=== PATIENT | male | born 1965 | race Caucasian/White ===

== ENCOUNTER 2017-10-31 12:34 | Inpatient (IN) | payer OTHER ==
[2017-10-31 16:09] VITALS: BMI 36.5
[2017-10-31] MEDS ORDERED: MAG HYDROX/AL HYDROX/SIMETH 30 ML UNIT-DOSE CUP PO PRN (16:33)
[2017-10-31] MEDS ORDERED: IBUPROFEN 400 MG TABLET (FP) PO PRN (16:33)
[2017-10-31] MEDS ORDERED: hydrOXYzine PAMOATE 50 MG CAPSULE (FP) PO PRN (16:33)
[2017-10-31] MEDS ORDERED: MAGNESIUM CITRATE 300 ML BOTTLE PO PRN (16:33)
[2017-10-31] MEDS ORDERED: P-EPHED 60MG/TRIPROLIDI 2.5MG TABLET PO PRN (16:33)
[2017-10-31] MEDS ORDERED: LOPERAMIDE HCL 2 MG CAPSULE PO PRN (16:33)
[2017-10-31] MEDS ORDERED: chlordiazePOXIDE HCL 25 MG CAPSULE PO PRN (16:33)
[2017-10-31] MEDS ORDERED: MAGNESIUM HYDROX 2400MG/30ML ORAL SUSPENSION 30 ML CUP PO PRN (16:33)
[2017-10-31] MEDS ORDERED: MENTHOL/PHENOL 1 EACH UD MM PRN (16:33)
--- NOTE | 2017-10-31 16:33 | HP ---
CIWA Score - CIWA Score Nausea/Vomitin Muscle Tremors: 4-Moderate,w/Arms Extend Anxiety: 4-Mod. Anxious/Guarded Agitation: 4-Moderately Restless Paroxysmal Sweats: 3 Orientation: 0-Oriented Tacttile Disturbances: 0-None Auditory Disturbances: 0-None Visual Disturbances: 0-None Headache: 1-Very Mild CIWA-Ar Total Score: 18 Admission ROS BHS - HPI Chief Complaint: I am here for detox. Allergies/Adverse Reactions: Allergies Allergy/AdvReac Type Severity Reaction Status Date / Time fish derived Allergy Severe Swelling Verified 10/31/17 16:14 Penicillins Allergy Severe Swelling Verified 10/31/17 16:14 lactose Allergy Verified 10/31/17 16:15 History of Present Illness: pt is a 52yr old male with a history of alcohol dependence seeking detox for treatment. Exam Limitations: No Limitations - Ebola screening Have you traveled outside of the country in the last 21 days: No (N) Have you had contact with anyone from an Ebola affected area: No Have you been sick,other than usual withdrawal symptoms: No Do you have a fever: No - Review of Systems Constitutional: Chills, Diaphoresis, Night Sweats, Changes in sleep, Unintentional Wgt. Loss EENT: reports: No Symptoms Reported Respiratory: reports: Cough Cardiac: reports: Syncope GI: reports: Nausea, Poor Appetite, Poor Fluid Intake : reports: No Symptoms Reported Musculoskeletal: reports: No Symptoms Reported Integumentary: reports: Flushing, Sweating Neuro: reports: Headache, Tingling, Tremors Endocrine: reports: Excessive Sweating, Flushing, Intolerance to Cold, Intolerance to Heat Hematology: reports: No Symptoms Reported Psychiatric: reports: Judgement Intact, Mood/Affect Appropiate, Orientated x3, Agitated, Anxious Other Systems: Reviewed and Negative Patient History - Patient Medical History Hx Anemia: No Hx Asthma: Yes Hx Chronic Obstructive Pulmonary Disease (COPD): No Hx Cancer: No Hx Cardiac Disorders: No Hx Congestive Heart Failure: No Hx Hypertension: No Hx Hypercholesterolemia: No Hx Pacemaker: No HX Cerebrovascular Accident: No Hx Seizures: No Hx Dementia: No Hx Diabetes: No Hx Gastrointestinal Disorders: No Hx Liver Disease: No Hx Genitourinary Disorders: No Hx Sexually Transmitted Disorders: No Hx Renal Disease (ESRD): No Hx Thyroid Disease: No Hx Human Immunodeficiency Virus (HIV): No (NEGATIVE HX) Hx Hepatitis C: No (negative) Hx Depression: Yes Hx Suicide Attempt: No (denies) Hx Bipolar Disorder: No Hx Schizophrenia: No - Patient Surgical History Past Surgical History: Yes Hx Neurologic Surgery: No Hx Cataract Extraction: No Hx Cardiac Surgery: No Hx Lung Surgery: No Hx Breast Surgery: No Hx Breast Biopsy: No Hx Abdominal Surgery: No Hx Appendectomy: No Hx Cholecystectomy: No Hx Genitourinary Surgery: No Hx Section: No Hx Orthopedic Surgery: Yes (left ankle fracture 2012, screw removed.) Anesthesia Reaction: No - PPD History Previous Implant?: Yes Documented Results: Negative w/o proof Implanted On Prior R Admission?: Yes PPD to be Administered?: Yes - Reproductive History Patient is a Female of Child Bearing Age (11 -55 yrs old): No - Smoking Cessation Smoking history: Current every day smoker Have you smoked in the past 12 months: Yes Aproximately how many cigarettes per day: 40 If you are a former smoker, when did you quit?: 1 month ago Cigars Per Day: 0 Hx Chewing Tobacco Use: No Initiated information on smoking cessation: Yes 'Breaking Loose' booklet given: 10/31/17 - Substance & Tx. History Hx Alcohol Use: Yes Hx Substance Use: Yes Substance Use Type: Alcohol, Marijuana Hx Substance Use Treatment: Yes (last detox 2013 [facility]) - Substances Abused Alcohol Route: Oral Frequency: Daily Amount used: 3 pints vodka Age of first use: 17 Date of Last Use: 10/31/17 Marijuana/Hashish Route: Smoking Frequency: 1-3 times last 30 days Amount used: 2 puffs Age of first use: 52 Date of Last Use: 10/30/17 Family Disease History - Family Disease History Family Disease History: Diabetes: Grandparent, Other: Mother (HTN) Admission Physical Exam BHS - Vital Signs Vital Signs: Vital Signs - 24 hr 10/31/17 15:56 Temperature 96 F L Pulse Rate 94 H Respiratory 20 Rate Blood Pressure 135/80 - Physical General Appearance: Yes: Appropriately Dressed, Moderate Distress, Tremorous, Irritable, Sweating, Anxious HEENTM: Yes: Normal Voice Respiratory: Yes: Lungs Clear, Normal Breath Sounds, No Respiratory Distress Neck: Yes: No masses,lesions,Nodules Breast: Yes: Within Normal Limits Cardiology: Yes: Regular Rhythm, Regular Rate, S1, S2 Abdominal: Yes: Normal Bowel Sounds, Non Tender, Soft Genitourinary: Yes: Within Normal Limits Back: Yes: Normal Inspection Musculoskeletal: Yes: Gait Steady Extremities: Yes: Normal Capillary Refill, Normal Inspection, Non-Tender, Tremors Neurological: Yes: Fully Oriented, Alert, Normal Response Integumentary: Yes: Normal Color, Diaphoresis Lymphatic: Yes: Within Normal Limits - Diagnostic (1) Alcohol dependence with uncomplicated withdrawal Current Visit: Yes Status: Chronic (2) Asthma Current Visit: Yes Status: Chronic Qualifiers: Asthma severity: mild Asthma complication type: uncomplicated (3) Nicotine dependence Current Visit: Yes Status: Chronic Qualifiers: Nicotine product type: cigarettes Substance use status: uncomplicated Qualified Code(s): F17.210 - Nicotine dependence, cigarettes, uncomplicated Cleared for Admission [facility] - Detox or Rehab [facility] Level of Care: Medically Managed Detox Regimen/Protocol: Librium [facility] Breath Alcohol Content Breath Alcohol Content: 0.024 Urine Drug Screen - Results Drug Screen Negative: No Urine Drug Screen Results: THC-Marijuana, BZO-Benzodiazepines
[2017-10-31] MEDS ORDERED: ALBUTEROL SO4 18 GM HFA INHALER IH PRN (16:35)
[2017-10-31] MEDS ORDERED: chlordiazePOXIDE HCL 25 MG CAPSULE PO ONE (18:00)
[2017-10-31] MEDS: NICOTINE POLACRILEX 4 MG GUM BC PRN ×2 (18:16→22:18)
[2017-10-31] MEDS: THIAMINE HCL 100 MG TABLET (FP) PO SCH (22:16)
[2017-10-31] MEDS: chlordiazePOXIDE HCL 25 MG CAPSULE PO SCH (22:16)
[2017-11-01 00:02] LABS: URINE APPEARANCE TURBID; URINE BILIRUBIN NEGATIVE (NEGATIVE); URINE BLOOD NEGATIVE (NEGATIVE); URINE COLOR YELLOW; URINE GLUCOSE (UA) NEGATIVE (NEGATIVE); URINE KETONE NEGATIVE (NEGATIVE); URINE LEUK ESTERASE NEGATIVE (NEGATIVE); URINE NITRITE NEGATIVE (NEGATIVE); URINE PROTEIN NEGATIVE (NEGATIVE); URINE UROBILINOGEN 4.0 E.U/dl mg/dL (0.2-1.0)
[2017-11-01] MEDS: ACETAMINOPHEN 325 MG TABLET (FP) PO PRN ×2 (05:10→20:56)
[2017-11-01] MEDS: chlordiazePOXIDE HCL 25 MG CAPSULE PO SCH ×4 (05:10→22:11)
[2017-11-01] MEDS: NICOTINE POLACRILEX 4 MG GUM BC PRN ×4 (08:22→20:54)
[2017-11-01] MEDS: guaiFENesin/D-METHORPHAN HB 10 ML UNIT-DOSE CUPS PO PRN ×2 (10:08→17:12)
[2017-11-01] MEDS: NICOTINE 21 MG/24 HOURS TOPICAL PATCH TD SCH (10:08)
[2017-11-01] MEDS: PRENATAL VITAMINS W/ FOLIC ACID TABLET (FP) PO SCH (10:08)
[2017-11-01 10:20] LABS: HEMATOCRIT 40.7 % (35.4-49); HEMOGLOBIN 13.7 GM/dL (11.7-16.9); MCH 31.7 pg (25.7-33.7); MCHC 33.6 g/dl (32.0-35.9); MEAN CELL VOLUME 94.2 fl (80-96); MEAN PLT VOLUME 8.5 fl (7.5-11.1); PLATELET COUNT 243 K/MM3 (134-434); RBC 4.33 M/mm3 (4.00-5.60); RDW 14.2 % (11.9-15.9); WHITE BLOOD COUNT 7.3 K/mm3 (4.0-10.0)
[2017-11-01 10:34] LABS: ALBUMIN 3.1 g/dl (3.4-5.0); ANION GAP 6 (8-16); BLOOD UREA NITROGEN 18 mg/dL (7-18); CALCIUM 8.2 mg/dL (8.5-10.1); CHLORIDE 103 mmol/L (98-107); CO2 29 mmol/L (21-32); GLUCOSE,RANDOM 86 mg/dL (74-106); POTASSIUM 4.1 mmol/L (3.5-5.1); SODIUM 138 mmol/L (136-145)
[2017-11-01 10:38] LABS: ALK PHOS 74 U/L (45-117); BILIRUBIN,TOTAL 0.6 mg/dL (0.2-1.0); CREATININE 1.1 mg/dL (0.7-1.3); SGOT/AST 21 U/L (15-37); SGPT/ALT 33 U/L (12-78); TOT PROT 6.6 g/dl (6.4-8.2)
--- NOTE | 2017-11-01 10:45 | EKG ---
Test Reason : Blood Pressure : / mmHG Vent. Rate : 075 BPM Atrial Rate : 075 BPM P-R Int : 178 ms QRS Dur : 094 ms QT Int : 436 ms P-R-T Axes : 076 034 033 degrees QTc Int : 486 ms NORMAL SINUS RHYTHM PROLONGED QT ABNORMAL ECG WHEN COMPARED WITH ECG OF 31-OCT-2017 19:29, NO SIGNIFICANT CHANGE WAS FOUND Confirmed by JAY MARTIN MD ([id number]) on 11/01/2017 10:45:00 AM Referred By: Confirmed By:JAY MARTIN MD
--- NOTE | 2017-11-01 10:45 | EKG ---
Test Reason : Blood Pressure : / mmHG Vent. Rate : 094 BPM Atrial Rate : 094 BPM P-R Int : 160 ms QRS Dur : 098 ms QT Int : 410 ms P-R-T Axes : 066 028 042 degrees QTc Int : 512 ms NORMAL SINUS RHYTHM INCOMPLETE RIGHT BUNDLE BRANCH BLOCK PROLONGED QT ABNORMAL ECG NO PREVIOUS ECGS AVAILABLE Confirmed by JAY MARTIN MD ([id number]) on 11/01/2017 10:45:12 AM Referred By: Confirmed By:JAY MARTIN MD
--- NOTE | 2017-11-01 10:59 | PN ---
[facility] CIWA - CIWA Score Nausea/Vomitin-No Nausea/No Vomiting Muscle Tremors: 4-Moderate,w/Arms Extend Anxiety: 4-Mod. Anxious/Guarded Agitation: 4-Moderately Restless Paroxysmal Sweats: 1-Minimal Palms Moist Orientation: 0-Oriented Tacttile Disturbances: 3-Moderate Itch/Numb/Burn Auditory Disturbances: 0-None Visual Disturbances: 0-None Headache: 0-None Present CIWA-Ar Total Score: 16 BHS Progress Note (SOAP) Subjective: ANXIETY,SWEATS, INTERMITTENT SLEEP. Objective: 11/01/17 10:58 Vital Signs Temperature 96.5 F L 11/01/17 09:11 Pulse Rate 84 11/01/17 09:11 Respiratory Rate 18 11/01/17 09:11 Blood Pressure 120/81 11/01/17 09:11 O2 Sat by Pulse Oximetry (%) Laboratory Last Values WBC 7.3 K/mm3 (4.0-10.0) 11/01/17 07:00 RBC 4.33 M/mm3 (4.00-5.60) 11/01/17 07:00 Hgb 13.7 GM/dL (11.7-16.9) 11/01/17 07:00 Hct 40.7 % (35.4-49) 11/01/17 07:00 MCV 94.2 fl (80-96) 11/01/17 07:00 MCH 31.7 pg (25.7-33.7) 11/01/17 07:00 MCHC 33.6 g/dl (32.0-35.9) 11/01/17 07:00 RDW 14.2 % (11.9-15.9) 11/01/17 07:00 Plt Count 243 K/MM3 (134-434) 11/01/17 07:00 MPV 8.5 fl (7.5-11.1) 11/01/17 07:00 Sodium 138 mmol/L (136-145) 11/01/17 07:00 Potassium 4.1 mmol/L (3.5-5.1) 11/01/17 07:00 Chloride 103 mmol/L (98-107) 11/01/17 07:00 Carbon Dioxide 29 mmol/L (21-32) D 11/01/17 07:00 Anion Gap 6 (8-16) L 11/01/17 07:00 BUN 18 mg/dL (7-18) D 11/01/17 07:00 Creatinine 1.1 mg/dL (0.7-1.3) 11/01/17 07:00 Creat Clearance w eGFR > 60 (>60) 11/01/17 07:00 Random Glucose 86 mg/dL (74-106) 11/01/17 07:00 Calcium 8.2 mg/dL (8.5-10.1) L 11/01/17 07:00 Total Bilirubin 0.6 mg/dL (0.2-1.0) 11/01/17 07:00 AST 21 U/L (15-37) D 11/01/17 07:00 ALT 33 U/L (12-78) D 11/01/17 07:00 Alkaline Phosphatase 74 U/L (45-117) 11/01/17 07:00 Total Protein 6.6 g/dl (6.4-8.2) 11/01/17 07:00 Albumin 3.1 g/dl (3.4-5.0) L 11/01/17 07:00 Urine Color Yellow 10/31/17 19:46 Urine Appearance Turbid 10/31/17 19:46 Urine pH 6.0 (5.0-8.0) 10/31/17 19:46 Ur Specific [place] 1.031 (1.001-1.035) 10/31/17 19:46 Urine Protein Negative (NEGATIVE) 10/31/17 19:46 Urine Glucose (UA) Negative (NEGATIVE) 10/31/17 19:46 Urine Ketones Negative (NEGATIVE) 10/31/17 19:46 Urine Blood Negative (NEGATIVE) 10/31/17 19:46 Urine Nitrite Negative (NEGATIVE) 10/31/17 19:46 Urine Bilirubin Negative (NEGATIVE) 10/31/17 19:46 Urine Urobilinogen 4.0 e.u/dl mg/dL (0.2-1.0) 10/31/17 19:46 Ur Leukocyte Esterase Negative (NEGATIVE) 10/31/17 19:46 Assessment: 11/01/17 10:59 WITHDRAWAL SX Plan: CONTINUE DETOX
--- NOTE | 2017-11-01 11:58 | CONSULT ---
[facility] Psychiatric Consult - Data Date of interview: 11/01/17 Admission source: [facility] Identifying data: Pt is a 52 year old male, single, father of two, and currently unemployed. This is one of multiple admissions for patient. Pt. admitted to for Substance Abuse History: - Smoking Cessation. Smoking history: Current every day smoker. Have you smoked in the past 12 months: Yes. Aproximately how many cigarettes per day: 40. If you are a former smoker, when did you quit?: 1 month ago. Cigars Per Day: 0. Hx Chewing Tobacco Use: No. Initiated information on smoking cessation: Yes. 'Breaking Loose' booklet given: . - Substance & Tx. History. Hx Alcohol Use: Yes. Hx Substance Use: Yes. Substance Use Type: Alcohol, Marijuana. Hx Substance Use Treatment: Yes (last detox 2013 [facility]). - Substances Abused. Alcohol. Route: Oral. Frequency: Daily. Amount used: 3 pints vodka. Age of first use: 17. Date of Last Use: 10/31/17. Marijuana/Hashish. Route: Smoking. Frequency: 1-3 times last 30 days. Amount used: 2 puffs. Age of first use: 52. Date of Last Use: 10/30/17 Medical History: Asthma Psychiatric History: Pt. denies h/o psychiatric hospitalization, and suicide attempts. Reports h/o OPC but has not seen a psychiatrist in "several years." Pt. is currently not prescribed any psychotrophic medications and refuses to take psychiatric medications at this time. Pt. reports a diagnosis of MDD. Physical/Sexual Abuse/Trauma History: Denies. Mental Status Exam - Mental Status Exam Alert and Oriented to: Time, Place, Person Cognitive Function: Good Patient Appearance: Well Groomed Mood: Euthymic Affect: Mood Congruent Patient Behavior: Cooperative Speech Pattern: Appropriate Voice Loudness: Normal Thought Process: Goal Oriented Thought Disorder: Not Present Hallucinations: Denies Suicidal Ideation: Denies Homicidal Ideation: Denies Insight/Judgement: Poor Sleep: Fair Appetite: Fair Muscle strength/Tone: Normal Gait/Station: Normal Psychiatric Findings - Problem List ([place] 1, 2,3) (1) Alcohol dependence with uncomplicated withdrawal Current Visit: Yes Status: Acute (2) MDD (major depressive disorder) Current Visit: No Status: Suspected Comment: Self reports. (3) Nicotine dependence Current Visit: Yes Status: Acute Qualifiers: Nicotine product type: cigarettes Substance use status: in withdrawal Qualified Code(s): F17.213 - Nicotine dependence, cigarettes, with withdrawal (4) Cannabis dependence Current Visit: Yes Status: Acute - Initial Treatment Plan Initial Treatment Plan: Psychoeducation provided. Detoxification in progress. Observation.
[2017-11-01] MEDS: THIAMINE HCL 100 MG TABLET (FP) PO SCH (22:11)
[2017-11-02] MEDS: chlordiazePOXIDE HCL 25 MG CAPSULE PO SCH ×3 (05:09→17:18)
[2017-11-02] MEDS: guaiFENesin/D-METHORPHAN HB 10 ML UNIT-DOSE CUPS PO PRN ×3 (05:09→22:12)
[2017-11-02] MEDS: NICOTINE POLACRILEX 4 MG GUM BC PRN ×7 (05:10→22:14)
[2017-11-02] MEDS: PRENATAL VITAMINS W/ FOLIC ACID TABLET (FP) PO SCH (10:09)
[2017-11-02] MEDS: NICOTINE 21 MG/24 HOURS TOPICAL PATCH TD SCH (10:09)
--- NOTE | 2017-11-02 10:46 | PN ---
[facility] CIWA - CIWA Score Nausea/Vomitin-No Nausea/No Vomiting Muscle Tremors: 4-Moderate,w/Arms Extend Anxiety: 4-Mod. Anxious/Guarded Agitation: 4-Moderately Restless Paroxysmal Sweats: 1-Minimal Palms Moist Orientation: 0-Oriented Tacttile Disturbances: 3-Moderate Itch/Numb/Burn Auditory Disturbances: 0-None Visual Disturbances: 0-None Headache: 0-None Present CIWA-Ar Total Score: 16 BHS Progress Note (SOAP) Subjective: ANXIETY,SWEATS,TREMORS. Objective: 11/02/17 10:45 Vital Signs Temperature 96.8 F L 11/02/17 09:03 Pulse Rate 80 11/02/17 09:03 Respiratory Rate 18 11/02/17 09:03 Blood Pressure 118/73 11/02/17 09:03 O2 Sat by Pulse Oximetry (%) Laboratory Last Values WBC 7.3 K/mm3 (4.0-10.0) 11/01/17 07:00 RBC 4.33 M/mm3 (4.00-5.60) 11/01/17 07:00 Hgb 13.7 GM/dL (11.7-16.9) 11/01/17 07:00 Hct 40.7 % (35.4-49) 11/01/17 07:00 MCV 94.2 fl (80-96) 11/01/17 07:00 MCH 31.7 pg (25.7-33.7) 11/01/17 07:00 MCHC 33.6 g/dl (32.0-35.9) 11/01/17 07:00 RDW 14.2 % (11.9-15.9) 11/01/17 07:00 Plt Count 243 K/MM3 (134-434) 11/01/17 07:00 MPV 8.5 fl (7.5-11.1) 11/01/17 07:00 Sodium 138 mmol/L (136-145) 11/01/17 07:00 Potassium 4.1 mmol/L (3.5-5.1) 11/01/17 07:00 Chloride 103 mmol/L (98-107) 11/01/17 07:00 Carbon Dioxide 29 mmol/L (21-32) D 11/01/17 07:00 Anion Gap 6 (8-16) L 11/01/17 07:00 BUN 18 mg/dL (7-18) D 11/01/17 07:00 Creatinine 1.1 mg/dL (0.7-1.3) 11/01/17 07:00 Creat Clearance w eGFR > 60 (>60) 11/01/17 07:00 Random Glucose 86 mg/dL (74-106) 11/01/17 07:00 Calcium 8.2 mg/dL (8.5-10.1) L 11/01/17 07:00 Total Bilirubin 0.6 mg/dL (0.2-1.0) 11/01/17 07:00 AST 21 U/L (15-37) D 11/01/17 07:00 ALT 33 U/L (12-78) D 11/01/17 07:00 Alkaline Phosphatase 74 U/L (45-117) 11/01/17 07:00 Total Protein 6.6 g/dl (6.4-8.2) 11/01/17 07:00 Albumin 3.1 g/dl (3.4-5.0) L 11/01/17 07:00 Urine Color Yellow 10/31/17 19:46 Urine Appearance Turbid 10/31/17 19:46 Urine pH 6.0 (5.0-8.0) 10/31/17 19:46 Ur Specific [place] 1.031 (1.001-1.035) 10/31/17 19:46 Urine Protein Negative (NEGATIVE) 10/31/17 19:46 Urine Glucose (UA) Negative (NEGATIVE) 10/31/17 19:46 Urine Ketones Negative (NEGATIVE) 10/31/17 19:46 Urine Blood Negative (NEGATIVE) 10/31/17 19:46 Urine Nitrite Negative (NEGATIVE) 10/31/17 19:46 Urine Bilirubin Negative (NEGATIVE) 10/31/17 19:46 Urine Urobilinogen 4.0 e.u/dl mg/dL (0.2-1.0) 10/31/17 19:46 Ur Leukocyte Esterase Negative (NEGATIVE) 10/31/17 19:46 RPR Titer Nonreactive (NONREACTIVE) 11/01/17 07:00 HIV 1&2 Antibody Screen Negative 11/01/17 07:00 HIV P24 Antigen Negative 11/01/17 07:00 Assessment: 11/02/17 10:46 WITHDRAWAL SX Plan: CONTINUE DETOX
[2017-11-02] MEDS: ACETAMINOPHEN 325 MG TABLET (FP) PO PRN (15:43)
[2017-11-02] MEDS: chlordiazePOXIDE 5 MG CAPSULE PO SCH (22:11)
[2017-11-02] MEDS: THIAMINE HCL 100 MG TABLET (FP) PO SCH (22:11)
[2017-11-03] MEDS: chlordiazePOXIDE 5 MG CAPSULE PO SCH ×3 (05:42→17:25)
[2017-11-03] MEDS: NICOTINE POLACRILEX 4 MG GUM BC PRN ×6 (05:43→21:05)
[2017-11-03] MEDS: NICOTINE 21 MG/24 HOURS TOPICAL PATCH TD SCH (10:14)
[2017-11-03] MEDS: PRENATAL VITAMINS W/ FOLIC ACID TABLET (FP) PO SCH (10:14)
[2017-11-03] MEDS: guaiFENesin/D-METHORPHAN HB 10 ML UNIT-DOSE CUPS PO PRN (10:15)
--- NOTE | 2017-11-03 12:39 | PN ---
BHS Progress Note (SOAP) Subjective: DECREASED ANXIETY,SWEATS,TREMORS. Objective: 11/03/17 12:38 Vital Signs Temperature 95.7 F L 11/03/17 09:38 Pulse Rate 86 11/03/17 09:38 Respiratory Rate 18 11/03/17 09:38 Blood Pressure 129/82 11/03/17 09:38 O2 Sat by Pulse Oximetry (%) Laboratory Last Values WBC 7.3 K/mm3 (4.0-10.0) 11/01/17 07:00 RBC 4.33 M/mm3 (4.00-5.60) 11/01/17 07:00 Hgb 13.7 GM/dL (11.7-16.9) 11/01/17 07:00 Hct 40.7 % (35.4-49) 11/01/17 07:00 MCV 94.2 fl (80-96) 11/01/17 07:00 MCH 31.7 pg (25.7-33.7) 11/01/17 07:00 MCHC 33.6 g/dl (32.0-35.9) 11/01/17 07:00 RDW 14.2 % (11.9-15.9) 11/01/17 07:00 Plt Count 243 K/MM3 (134-434) 11/01/17 07:00 MPV 8.5 fl (7.5-11.1) 11/01/17 07:00 Sodium 138 mmol/L (136-145) 11/01/17 07:00 Potassium 4.1 mmol/L (3.5-5.1) 11/01/17 07:00 Chloride 103 mmol/L (98-107) 11/01/17 07:00 Carbon Dioxide 29 mmol/L (21-32) D 11/01/17 07:00 Anion Gap 6 (8-16) L 11/01/17 07:00 BUN 18 mg/dL (7-18) D 11/01/17 07:00 Creatinine 1.1 mg/dL (0.7-1.3) 11/01/17 07:00 Creat Clearance w eGFR > 60 (>60) 11/01/17 07:00 Random Glucose 86 mg/dL (74-106) 11/01/17 07:00 Calcium 8.2 mg/dL (8.5-10.1) L 11/01/17 07:00 Total Bilirubin 0.6 mg/dL (0.2-1.0) 11/01/17 07:00 AST 21 U/L (15-37) D 11/01/17 07:00 ALT 33 U/L (12-78) D 11/01/17 07:00 Alkaline Phosphatase 74 U/L (45-117) 11/01/17 07:00 Total Protein 6.6 g/dl (6.4-8.2) 11/01/17 07:00 Albumin 3.1 g/dl (3.4-5.0) L 11/01/17 07:00 Urine Color Yellow 10/31/17 19:46 Urine Appearance Turbid 10/31/17 19:46 Urine pH 6.0 (5.0-8.0) 10/31/17 19:46 Ur Specific [place] 1.031 (1.001-1.035) 10/31/17 19:46 Urine Protein Negative (NEGATIVE) 10/31/17 19:46 Urine Glucose (UA) Negative (NEGATIVE) 10/31/17 19:46 Urine Ketones Negative (NEGATIVE) 10/31/17 19:46 Urine Blood Negative (NEGATIVE) 10/31/17 19:46 Urine Nitrite Negative (NEGATIVE) 10/31/17 19:46 Urine Bilirubin Negative (NEGATIVE) 10/31/17 19:46 Urine Urobilinogen 4.0 e.u/dl mg/dL (0.2-1.0) 10/31/17 19:46 Ur Leukocyte Esterase Negative (NEGATIVE) 10/31/17 19:46 RPR Titer Nonreactive (NONREACTIVE) 11/01/17 07:00 HIV 1&2 Antibody Screen Negative 11/01/17 07:00 HIV P24 Antigen Negative 11/01/17 07:00 Assessment: 11/03/17 12:38 WITHDRAWAL SX Plan: CONTINUE DETOX
[2017-11-03] MEDS: ACETAMINOPHEN 325 MG TABLET (FP) PO PRN (17:28)
[2017-11-03] MEDS: THIAMINE HCL 100 MG TABLET (FP) PO SCH (22:43)
[2017-11-03] MEDS: chlordiazePOXIDE HCL 10 MG CAPSULE PO SCH (22:44)
[2017-11-04] MEDS: chlordiazePOXIDE HCL 10 MG CAPSULE PO SCH (05:41)
[2017-11-04] MEDS: ACETAMINOPHEN 325 MG TABLET (FP) PO PRN (05:43)
[2017-11-04] MEDS: NICOTINE POLACRILEX 4 MG GUM BC PRN (05:44)
[2017-11-04 06:07] VITALS: BP 143/91; PULSE 75; TEMP 96.6
--- NOTE | 2017-11-04 17:54 | DS ---
[facility] Detox Discharge Summary Admission Date: 10/31/17 Discharge Date: 11/04/17 - History Present History: Alcohol Dependence, Cannabis Dependence Additional Comments: PATIENT GOING TO [facility] OUTPATIENT [facility]GRAM FOR AFTERCARE. PATIENT WAS DISCHARGED FROM DETOX UNIT IN STABLE MEDICAL CONDITION. Pertinent Past History: Asthma, Depression, Nicotine Dependence. - Physical Exam Results Vital Signs: Vital Signs Temperature 96.6 F L 11/04/17 06:07 Pulse Rate 75 11/04/17 06:07 Respiratory Rate 18 11/04/17 06:07 Blood Pressure 143/91 11/04/17 06:07 O2 Sat by Pulse Oximetry (%) Pertinent Admission Physical Exam Findings: WITHDRAWAL SYMPTOMS. Laboratory Tests 10/31/17 11/01/17 11/01/17 19:46 07:00 07:00 WBC 7.3 RBC 4.33 Hgb 13.7 Hct 40.7 MCV 94.2 MCH 31.7 MCHC 33.6 RDW 14.2 Plt Count 243 MPV 8.5 Sodium Potassium Chloride Carbon Dioxide Anion Gap BUN Creatinine Creat Clearance w eGFR Random Glucose Calcium Total Bilirubin AST ALT Alkaline Phosphatase Total Protein Albumin Urine Color Yellow Urine Appearance Turbid Urine pH 6.0 Ur Specific [place] 1.031 Urine Protein Negative Urine Glucose (UA) Negative Urine Ketones Negative Urine Blood Negative Urine Nitrite Negative Urine Bilirubin Negative Urine Urobilinogen 4.0 e.u/dl Ur Leukocyte Esterase Negative RPR Titer HIV 1&2 Antibody Screen Negative HIV P24 Antigen Negative 11/01/17 11/01/17 07:00 07:00 WBC RBC Hgb Hct MCV MCH MCHC RDW Plt Count MPV Sodium 138 Potassium 4.1 Chloride 103 Carbon Dioxide 29 D Anion Gap 6 L BUN 18 D Creatinine 1.1 Creat Clearance w eGFR > 60 Random Glucose 86 Calcium 8.2 L Total Bilirubin 0.6 AST 21 D ALT 33 D Alkaline Phosphatase 74 Total Protein 6.6 Albumin 3.1 L Urine Color Urine Appearance Urine pH Ur Specific [place] Urine Protein Urine Glucose (UA) Urine Ketones Urine Blood Urine Nitrite Urine Bilirubin Urine Urobilinogen Ur Leukocyte Esterase RPR Titer Nonreactive HIV 1&2 Antibody Screen HIV P24 Antigen LABS NOTED. - Treatment Hospital Course: Detox Protocol Followed, Detoxed Safely, Responded well, Discharged Condition Good Patient has Accepted a Rehab Referral to: PT. GOING TO [facility] FOR AFTERCARE. - Medication Discharge Medications: Ambulatory Orders Albuterol Sulfate Inhaler - [Ventolin HFA Inhaler -] 2 inh PO Q4H PRN #1 canister 08/24/14 - Diagnosis (1) Alcohol dependence with uncomplicated withdrawal Status: Acute (2) Cannabis dependence Status: Acute (3) Nicotine dependence Status: Acute Qualifiers: Nicotine product type: cigarettes Substance use status: in withdrawal Qualified Code(s): F17.213 - Nicotine dependence, cigarettes, with withdrawal (4) Asthma Status: Chronic Qualifiers: Asthma severity: mild Asthma persistence: unspecified Asthma complication type: uncomplicated Qualified Code(s): J45.909 - Unspecified asthma, uncomplicated (5) Major depressive disorder, recurrent Status: Chronic Qualifiers: Major depression episode severity: unspecified Qualified Code(s): F33.9 - Major depressive disorder, recurrent, unspecified - AMA Did Patient Leave Against Medical Advice: No
== END 2017-11-04 08:55 | disposition home or self-care (01) | DRG 775 ==
LOC: YASAS 12:34 → Y3N 16:53
PROVIDERS: ADMIT Internal Medicine; ATTEND Internal Medicine
PROC: HZ2ZZZZ Detoxification Services for Substance Abuse Treatment (ICD-10-PCS; principal; 2017-10-31)
DX: F10.230 Alcohol dependence with withdrawal, uncomplicated (principal); F12.20 Cannabis dependence, uncomplicated; F17.213 Nicotine dependence, cigarettes, with withdrawal; F33.9 Major depressive disorder, recurrent, unspecified; J45.909 Unspecified asthma, uncomplicated; Z91.013 Allergy to seafood; Z88.0 Allergy status to penicillin; Z91.011 Allergy to milk products
CPT/HCPCS: 36415; 80053; 81003; 85027; 86593; 87389; 93005; 93010

== ENCOUNTER 2017-12-12 12:17 | Inpatient (IN) | payer OTHER ==
[2017-12-12 15:06] VITALS: BMI 33.0
--- NOTE | 2017-12-12 16:10 | HP ---
CIWA Score - CIWA Score Nausea/Vomitin Muscle Tremors: 2 Anxiety: 2 Agitation: 1-Slight > Activity Paroxysmal Sweats: 2 Orientation: 1-Uncertain about Date Tacttile Disturbances: 0-None Auditory Disturbances: 1-Very Mild Visual Disturbances: 1-Very Mild Sensitivity Headache: 2-Mild CIWA-Ar Total Score: 14 Admission ROS BHS - HPI Chief Complaint: WITHDRAWAL SYMPTOMS Allergies/Adverse Reactions: Allergies Allergy/AdvReac Type Severity Reaction Status Date / Time fish derived Allergy Severe Swelling Verified 10/31/17 16:14 Penicillins Allergy Severe Swelling Verified 10/31/17 16:14 lactose Allergy Verified 10/31/17 16:15 History of Present Illness: 52 Y.O. MAN WITH A HISTORY OF ALCOHOL DEPENDENCE IS HERE SEEKING DETOX. HE HAS HAD MULTIPLE ADMISSIONS HERE WITH HIS LAST ADMISSION BEING IN 10/2017. LONGEST PERIOD SOBER HAS BEEN 18 YEARS. Exam Limitations: No Limitations - Ebola screening Have you traveled outside of the country in the last 21 days: No Have you had contact with anyone from an Ebola affected area: No Have you been sick,other than usual withdrawal symptoms: No - Review of Systems Constitutional: Diaphoresis EENT: reports: No Symptoms Reported Respiratory: reports: No Symptoms reported Cardiac: reports: No Symptoms Reported GI: reports: No Symptoms Reported : reports: No Symptoms Reported Musculoskeletal: reports: No Symptoms Reported Integumentary: reports: No Symptoms Reported Neuro: reports: Headache Endocrine: reports: No Symptoms Reported Hematology: reports: No Symptoms Reported Psychiatric: reports: Judgement Intact, Mood/Affect Appropiate, Anxious Other Systems: Reviewed and Negative Patient History - Patient Medical History Hx Anemia: No Hx Asthma: Yes Hx Chronic Obstructive Pulmonary Disease (COPD): No Hx Cancer: No Hx Cardiac Disorders: No Hx Congestive Heart Failure: No Hx Hypertension: No Hx Hypercholesterolemia: No Hx Pacemaker: No HX Cerebrovascular Accident: No Hx Seizures: No Hx Dementia: No Hx Diabetes: No Hx Gastrointestinal Disorders: No Hx Liver Disease: No Hx Genitourinary Disorders: No Hx Sexually Transmitted Disorders: No Hx Renal Disease (ESRD): No Hx Thyroid Disease: No Hx Human Immunodeficiency Virus (HIV): No (NEGATIVE HX) Hx Hepatitis C: No (negative) Hx Depression: Yes Hx Suicide Attempt: No (denies) Hx Bipolar Disorder: No Hx Schizophrenia: No - Patient Surgical History Past Surgical History: Yes Hx Neurologic Surgery: No Hx Cataract Extraction: No Hx Cardiac Surgery: No Hx Lung Surgery: No Hx Breast Surgery: No Hx Breast Biopsy: No Hx Abdominal Surgery: No Hx Appendectomy: No Hx Cholecystectomy: No Hx Genitourinary Surgery: No Hx Section: No Hx Orthopedic Surgery: Yes (left ankle fracture 2012, screw removed.) Anesthesia Reaction: No - PPD History Previous Implant?: Yes Documented Results: Negative w/proof Date: 11/02/17 Results: 0mm PPD to be Administered?: No - Reproductive History Patient is a Female of Child Bearing Age (11 -55 yrs old): No - Smoking Cessation Smoking history: Current every day smoker Have you smoked in the past 12 months: Yes Aproximately how many cigarettes per day: 40 If you are a former smoker, when did you quit?: 1 month ago Cigars Per Day: 0 Hx Chewing Tobacco Use: No Initiated information on smoking cessation: Yes 'Breaking Loose' booklet given: 12/12/17 - Substance & Tx. History Hx Alcohol Use: Yes Hx Substance Use: No Substance Use Type: Alcohol Hx Substance Use Treatment: Yes (DETOX: 10/2017) - Substances Abused Alcohol Route: Oral Frequency: Daily Amount used: 3 PINTS OF LIQUOR Age of first use: 17 Date of Last Use: 12/12/17 Family Disease History - Family Disease History Family Disease History: Diabetes: Grandparent, Other: Mother (HTN) Admission Physical Exam [facility] - Vital Signs Vital Signs: Vital Signs - 24 hr 12/12/17 15:02 Temperature 97.7 F Pulse Rate 94 H Respiratory 18 Rate Blood Pressure 118/72 - Physical General Appearance: Yes: Disheveled, Anxious HEENTM: Yes: Hearing grossly Normal, Normal ENT Inspection, Normocephalic, Pharynx Normal Respiratory: Yes: Chest Non-Tender, Lungs Clear, Normal Breath Sounds, No Respiratory Distress, No Accessory Muscle Use Neck: Yes: No masses,lesions,Nodules, Trachea in good position Breast: Yes: Breast Exam Deferred Cardiology: Yes: Regular Rhythm, Regular Rate Abdominal: Yes: Normal Bowel Sounds, Non Tender, Flat Genitourinary: Yes: Other (NO COMPLAINTS REPORTED) Back: Yes: Normal Inspection Musculoskeletal: Yes: full range of Motion, Gait Steady, Pelvis Stable Extremities: Yes: Normal Capillary Refill, Normal Inspection, Normal Range of Motion, Non-Tender Neurological: Yes: Alert, Motor Strength 5/5, Normal Mood/Affect, Normal Response Integumentary: Yes: Normal Color, Dry, Warm Lymphatic: Yes: Within Normal Limits - Diagnostic (1) Alcohol dependence with uncomplicated withdrawal Current Visit: Yes Status: Chronic (2) Nicotine dependence Current Visit: Yes Status: Chronic Qualifiers: Nicotine product type: cigarettes Substance use status: in withdrawal Qualified Code(s): F17.213 - Nicotine dependence, cigarettes, with withdrawal (3) Asthma Current Visit: Yes Status: Chronic Qualifiers: Asthma severity: mild Asthma persistence: unspecified Asthma complication type: uncomplicated Qualified Code(s): J45.909 - Unspecified asthma, uncomplicated Cleared for Admission [facility] - Detox or Rehab [facility] Level of Care: Medically Managed Detox Regimen/Protocol: Librium [facility] Breath Alcohol Content Breath Alcohol Content: 0.195 Urine Drug Screen - Results Drug Screen Negative: No Urine Drug Screen Results: THC-Marijuana, BZO-Benzodiazepines
[2017-12-12] MEDS ORDERED: IBUPROFEN 400 MG TABLET (FP) PO PRN (16:16)
[2017-12-12] MEDS ORDERED: P-EPHED 60MG/TRIPROLIDI 2.5MG TABLET PO PRN (16:16)
[2017-12-12] MEDS ORDERED: MAG HYDROX/AL HYDROX/SIMETH 30 ML UNIT-DOSE CUP PO PRN (16:16)
[2017-12-12] MEDS ORDERED: ACETAMINOPHEN 325 MG TABLET (FP) PO PRN (16:16)
[2017-12-12] MEDS ORDERED: hydrOXYzine PAMOATE 50 MG CAPSULE (FP) PO PRN (16:16)
[2017-12-12] MEDS ORDERED: chlordiazePOXIDE HCL 25 MG CAPSULE PO PRN (16:16)
[2017-12-12] MEDS ORDERED: guaiFENesin/D-METHORPHAN HB 10 ML UNIT-DOSE CUPS PO PRN (16:16)
[2017-12-12] MEDS ORDERED: LOPERAMIDE HCL 2 MG CAPSULE PO PRN (16:16)
[2017-12-12] MEDS ORDERED: MAGNESIUM HYDROX 2400MG/30ML ORAL SUSPENSION 30 ML CUP PO PRN (16:16)
[2017-12-12] MEDS ORDERED: MENTHOL/PHENOL 1 EACH UD MM PRN (16:16)
[2017-12-12] MEDS ORDERED: MAGNESIUM CITRATE 300 ML BOTTLE PO PRN (16:16)
[2017-12-12] MEDS ORDERED: chlordiazePOXIDE HCL 25 MG CAPSULE PO ONE (18:30)
[2017-12-12] MEDS: NICOTINE POLACRILEX 4 MG GUM BC PRN (22:16)
[2017-12-12] MEDS: chlordiazePOXIDE HCL 25 MG CAPSULE PO SCH (22:16)
[2017-12-12] MEDS: THIAMINE HCL 100 MG TABLET (FP) PO SCH (22:16)
[2017-12-13 05:20] LABS: URINE APPEARANCE TURBID; URINE BILIRUBIN NEGATIVE (NEGATIVE); URINE BLOOD NEGATIVE (NEGATIVE); URINE COLOR YELLOW; URINE GLUCOSE (UA) NEGATIVE (NEGATIVE); URINE KETONE NEGATIVE (NEGATIVE); URINE LEUK ESTERASE NEGATIVE (NEGATIVE); URINE NITRITE NEGATIVE (NEGATIVE); URINE PROTEIN NEGATIVE (NEGATIVE)
[2017-12-13] MEDS: chlordiazePOXIDE HCL 25 MG CAPSULE PO SCH ×4 (05:42→22:05)
[2017-12-13] MEDS: NICOTINE POLACRILEX 4 MG GUM BC PRN ×6 (05:45→21:27)
[2017-12-13] MEDS: PRENATAL VITAMINS W/ FOLIC ACID TABLET (FP) PO SCH (10:18)
[2017-12-13 10:22] LABS: HEMATOCRIT 40.9 % (35.4-49); HEMOGLOBIN 13.6 GM/dL (11.7-16.9); MCH 31.6 pg (25.7-33.7); MCHC 33.3 g/dl (32.0-35.9); MEAN CELL VOLUME 95.1 fl (80-96); MEAN PLT VOLUME 8.3 fl (7.5-11.1); PLATELET COUNT 195 K/MM3 (134-434); RDW 14.3 % (11.9-15.9)
--- NOTE | 2017-12-13 10:29 | EKG ---
Test Reason : Blood Pressure : / mmHG Vent. Rate : 097 BPM Atrial Rate : 097 BPM P-R Int : 158 ms QRS Dur : 108 ms QT Int : 394 ms P-R-T Axes : 063 012 043 degrees QTc Int : 500 ms NORMAL SINUS RHYTHM INCOMPLETE RIGHT BUNDLE BRANCH BLOCK PROLONGED QT ABNORMAL ECG WHEN COMPARED WITH ECG OF 01-NOV-2017 06:58, NO SIGNIFICANT CHANGE WAS FOUND Confirmed by VERONICA RICKETTS, JAY ([id number]) on 12/13/2017 10:28:38 AM Referred By: Confirmed By:JAY MARTIN MD
[2017-12-13 10:34] LABS: CHLORIDE 106 mmol/L (98-107); POTASSIUM 4.4 mmol/L (3.5-5.1); SODIUM 140 mmol/L (136-145)
[2017-12-13 11:00] LABS: ALBUMIN 3.3 g/dl (3.4-5.0); ALK PHOS 68 U/L (45-117); ANION GAP 8 (8-16); BILIRUBIN,TOTAL 0.6 mg/dL (0.2-1.0); BLOOD UREA NITROGEN 17 mg/dL (7-18); CALCIUM 7.6 mg/dL (8.5-10.1); CO2 26 mmol/L (21-32); GLUCOSE,RANDOM 92 mg/dL (74-106); SGOT/AST 24 U/L (15-37); SGPT/ALT 41 U/L (12-78); TOT PROT 6.4 g/dl (6.4-8.2)
--- NOTE | 2017-12-13 11:14 | PN ---
S CIWA - CIWA Score Nausea/Vomitin Muscle Tremors: 3 Anxiety: 3 Agitation: 3 Paroxysmal Sweats: 1-Minimal Palms Moist Orientation: 0-Oriented Tacttile Disturbances: 1-Very Mild Itch/Numbness Auditory Disturbances: 1-Very Mild Visual Disturbances: 0-None Headache: 2-Mild CIWA-Ar Total Score: 17 BHS Progress Note (SOAP) Subjective: ALERT,IRRITABLE,ANXIOUS,INTERRUPTED SLEEP,TREMOR,TREMOR Objective: 12/13/17 11:11 Vital Signs Temperature 97.3 F L 12/13/17 09:53 Pulse Rate 91 H 12/13/17 09:53 Respiratory Rate 20 12/13/17 09:53 Blood Pressure 144/79 12/13/17 09:53 O2 Sat by Pulse Oximetry (%) EKG NSR,PROLONGQT NO CHEST PAIN,NO SOB,NO DIZZINESS Laboratory Last Values WBC 6.0 K/mm3 (4.0-10.0) 12/13/17 07:00 RBC 4.30 M/mm3 (4.00-5.60) 12/13/17 07:00 Hgb 13.6 GM/dL (11.7-16.9) 12/13/17 07:00 Hct 40.9 % (35.4-49) 12/13/17 07:00 MCV 95.1 fl (80-96) 12/13/17 07:00 MCH 31.6 pg (25.7-33.7) 12/13/17 07:00 MCHC 33.3 g/dl (32.0-35.9) 12/13/17 07:00 RDW 14.3 % (11.9-15.9) 12/13/17 07:00 Plt Count 195 K/MM3 (134-434) 12/13/17 07:00 MPV 8.3 fl (7.5-11.1) 12/13/17 07:00 Sodium 140 mmol/L (136-145) 12/13/17 07:00 Potassium 4.4 mmol/L (3.5-5.1) 12/13/17 07:00 Chloride 106 mmol/L (98-107) 12/13/17 07:00 Carbon Dioxide 26 mmol/L (21-32) 12/13/17 07:00 Anion Gap 8 (8-16) 12/13/17 07:00 BUN 17 mg/dL (7-18) 12/13/17 07:00 Creatinine 1.0 mg/dL (0.7-1.3) 12/13/17 07:00 Creat Clearance w eGFR > 60 (>60) 12/13/17 07:00 Random Glucose 92 mg/dL (74-106) 12/13/17 07:00 Calcium 7.6 mg/dL (8.5-10.1) L 12/13/17 07:00 Total Bilirubin 0.6 mg/dL (0.2-1.0) 12/13/17 07:00 AST 24 U/L (15-37) 12/13/17 07:00 ALT 41 U/L (12-78) D 12/13/17 07:00 Alkaline Phosphatase 68 U/L (45-117) 12/13/17 07:00 Total Protein 6.4 g/dl (6.4-8.2) 12/13/17 07:00 Albumin 3.3 g/dl (3.4-5.0) L 12/13/17 07:00 Urine Color Yellow 12/12/17 23:26 Urine Appearance Turbid 12/12/17 23:26 Urine pH 5.0 (5.0-8.0) 12/12/17 23:26 Ur Specific [place] 1.046 (1.001-1.035) H 12/12/17 23:26 Urine Protein Negative (NEGATIVE) 12/12/17 23:26 Urine Glucose (UA) Negative (NEGATIVE) 12/12/17 23:26 Urine Ketones Negative (NEGATIVE) 12/12/17 23:26 Urine Blood Negative (NEGATIVE) 12/12/17 23:26 Urine Nitrite Negative (NEGATIVE) 12/12/17 23:26 Urine Bilirubin Negative (NEGATIVE) 12/12/17 23:26 Urine Urobilinogen 2.0 mg/dL (0.2-1.0) 12/12/17 23:26 Ur Leukocyte Esterase Negative (NEGATIVE) 12/12/17 23:26 HIV 1&2 Antibody Screen Negative 12/13/17 07:00 HIV P24 Antigen Negative 12/13/17 07:00 12/13/17 11:13 RPR PENDING Assessment: 12/13/17 11:13 WITHDRAWAL SYMPTOM Plan: CONTINUE DETOX,[employer] CONSULTATION BY PATIENT'S REQUEST
[2017-12-13] MEDS: THIAMINE HCL 100 MG TABLET (FP) PO SCH (22:05)
[2017-12-14] MEDS: chlordiazePOXIDE HCL 25 MG CAPSULE PO SCH ×3 (06:00→17:26)
[2017-12-14] MEDS: NICOTINE POLACRILEX 4 MG GUM BC PRN ×5 (07:01→22:04)
--- NOTE | 2017-12-14 10:19 | PN ---
S CIWA - CIWA Score Nausea/Vomitin Muscle Tremors: 3 Anxiety: 3 Agitation: 2 Paroxysmal Sweats: 1-Minimal Palms Moist Orientation: 0-Oriented Tacttile Disturbances: 1-Very Mild Itch/Numbness Auditory Disturbances: 1-Very Mild Visual Disturbances: 0-None Headache: 2-Mild CIWA-Ar Total Score: 16 BHS Progress Note (SOAP) Subjective: ALERT,IRRITABLE,ANXIOUS,INTERRUPTED SLEEP,TREMOR Objective: 12/14/17 10:18 Vital Signs Temperature 97.2 F L 12/14/17 09:25 Pulse Rate 84 12/14/17 09:25 Respiratory Rate 18 12/14/17 09:25 Blood Pressure 143/83 12/14/17 09:25 O2 Sat by Pulse Oximetry (%) 12/14/17 10:18 Laboratory Last Values WBC 6.0 K/mm3 (4.0-10.0) 12/13/17 07:00 RBC 4.30 M/mm3 (4.00-5.60) 12/13/17 07:00 Hgb 13.6 GM/dL (11.7-16.9) 12/13/17 07:00 Hct 40.9 % (35.4-49) 12/13/17 07:00 MCV 95.1 fl (80-96) 12/13/17 07:00 MCH 31.6 pg (25.7-33.7) 12/13/17 07:00 MCHC 33.3 g/dl (32.0-35.9) 12/13/17 07:00 RDW 14.3 % (11.9-15.9) 12/13/17 07:00 Plt Count 195 K/MM3 (134-434) 12/13/17 07:00 MPV 8.3 fl (7.5-11.1) 12/13/17 07:00 Sodium 140 mmol/L (136-145) 12/13/17 07:00 Potassium 4.4 mmol/L (3.5-5.1) 12/13/17 07:00 Chloride 106 mmol/L (98-107) 12/13/17 07:00 Carbon Dioxide 26 mmol/L (21-32) 12/13/17 07:00 Anion Gap 8 (8-16) 12/13/17 07:00 BUN 17 mg/dL (7-18) 12/13/17 07:00 Creatinine 1.0 mg/dL (0.7-1.3) 12/13/17 07:00 Creat Clearance w eGFR > 60 (>60) 12/13/17 07:00 Random Glucose 92 mg/dL (74-106) 12/13/17 07:00 Calcium 7.6 mg/dL (8.5-10.1) L 12/13/17 07:00 Total Bilirubin 0.6 mg/dL (0.2-1.0) 12/13/17 07:00 AST 24 U/L (15-37) 12/13/17 07:00 ALT 41 U/L (12-78) D 12/13/17 07:00 Alkaline Phosphatase 68 U/L (45-117) 12/13/17 07:00 Total Protein 6.4 g/dl (6.4-8.2) 12/13/17 07:00 Albumin 3.3 g/dl (3.4-5.0) L 12/13/17 07:00 Urine Color Yellow 12/12/17 23:26 Urine Appearance Turbid 12/12/17 23:26 Urine pH 5.0 (5.0-8.0) 12/12/17 23:26 Ur Specific [place] 1.046 (1.001-1.035) H 12/12/17 23:26 Urine Protein Negative (NEGATIVE) 12/12/17 23:26 Urine Glucose (UA) Negative (NEGATIVE) 12/12/17 23:26 Urine Ketones Negative (NEGATIVE) 12/12/17 23:26 Urine Blood Negative (NEGATIVE) 12/12/17 23:26 Urine Nitrite Negative (NEGATIVE) 12/12/17 23:26 Urine Bilirubin Negative (NEGATIVE) 12/12/17 23:26 Urine Urobilinogen 2.0 mg/dL (0.2-1.0) 12/12/17 23:26 Ur Leukocyte Esterase Negative (NEGATIVE) 12/12/17 23:26 RPR Titer Nonreactive (NONREACTIVE) 12/13/17 07:00 HIV 1&2 Antibody Screen Negative 12/13/17 07:00 HIV P24 Antigen Negative 12/13/17 07:00 Assessment: 12/14/17 10:19 WITHDRAWAL SYMPTOM Plan: CONTINUE DETOX
[2017-12-14] MEDS: PRENATAL VITAMINS W/ FOLIC ACID TABLET (FP) PO SCH (10:40)
[2017-12-14] MEDS: chlordiazePOXIDE 5 MG CAPSULE PO SCH (22:04)
[2017-12-14] MEDS: THIAMINE HCL 100 MG TABLET (FP) PO SCH (22:04)
[2017-12-15] MEDS: chlordiazePOXIDE 5 MG CAPSULE PO SCH ×3 (05:56→17:48)
[2017-12-15] MEDS: NICOTINE POLACRILEX 4 MG GUM BC PRN ×5 (05:59→23:03)
[2017-12-15] MEDS: PRENATAL VITAMINS W/ FOLIC ACID TABLET (FP) PO SCH (10:56)
--- NOTE | 2017-12-15 12:18 | PN ---
S Progress Note (SOAP) Subjective: ALERT,IRRITABLE,INTERRUPTED SLEEP Objective: 12/15/17 12:17 Vital Signs Temperature 97.2 F L 12/15/17 09:58 Pulse Rate 91 H 12/15/17 09:58 Respiratory Rate 19 12/15/17 09:58 Blood Pressure 135/80 12/15/17 09:58 O2 Sat by Pulse Oximetry (%) Assessment: 12/15/17 12:17 WITHDRAWAL SYMPTOM Plan: CONTINUE DETOX,DISCHARGE IN AM
[2017-12-15] MEDS: chlordiazePOXIDE HCL 10 MG CAPSULE PO SCH (23:01)
[2017-12-15] MEDS: THIAMINE HCL 100 MG TABLET (FP) PO SCH (23:01)
[2017-12-16] MEDS: chlordiazePOXIDE HCL 10 MG CAPSULE PO SCH (05:42)
[2017-12-16] MEDS: NICOTINE POLACRILEX 4 MG GUM BC PRN (05:44)
[2017-12-16 06:28] VITALS: BP 104/67; PULSE 78; TEMP 97.3
--- NOTE | 2017-12-16 08:35 | DS ---
[facility] Detox Discharge Summary Admission Date: 12/12/17 Discharge Date: 12/16/17 - History Present History: Alcohol Dependence Additional Comments: follow up with after care program as arrangement Pertinent Past History: asthma nicotine dependence - Physical Exam Results Vital Signs: Vital Signs Temperature 97.3 F L 12/16/17 06:51 Pulse Rate 78 12/16/17 06:51 Respiratory Rate 18 12/16/17 06:51 Blood Pressure 104/67 12/16/17 06:51 O2 Sat by Pulse Oximetry (%) Pertinent Admission Physical Exam Findings: withdrawal signs and symptom - Treatment Hospital Course: Detox Protocol Followed, Detoxed Safely, Responded well, Discharged Condition Good Patient has Accepted a Rehab Referral to: declined - Medication Discharge Medications: Ambulatory Orders Albuterol Sulfate Inhaler - [Ventolin HFA Inhaler -] 2 inh PO Q4H PRN #1 canister 08/24/14 - Diagnosis (1) Alcohol dependence with uncomplicated withdrawal Current Visit: Yes Status: Chronic (2) Asthma Current Visit: Yes Status: Chronic Qualifiers: Asthma severity: mild Asthma persistence: unspecified Asthma complication type: uncomplicated Qualified Code(s): J45.909 - Unspecified asthma, uncomplicated (3) Nicotine dependence Current Visit: Yes Status: Chronic Qualifiers: Nicotine product type: cigarettes Substance use status: in withdrawal Qualified Code(s): F17.213 - Nicotine dependence, cigarettes, with withdrawal - AMA Did Patient Leave Against Medical Advice: No
[2017-12-16] MEDS: PRENATAL VITAMINS W/ FOLIC ACID TABLET (FP) PO SCH (11:20)
== END 2017-12-16 09:00 | disposition home or self-care (01) | DRG 775 ==
LOC: YASAS 12:17 → Y6N 18:04
PROVIDERS: ADMIT Internal Medicine; ATTEND Internal Medicine
PROC: HZ2ZZZZ Detoxification Services for Substance Abuse Treatment (ICD-10-PCS; principal; 2017-12-12)
DX: F10.230 Alcohol dependence with withdrawal, uncomplicated (principal); F17.213 Nicotine dependence, cigarettes, with withdrawal; J45.909 Unspecified asthma, uncomplicated
CPT/HCPCS: 36415; 80053; 81003; 85027; 86593; 87389; 93005; 93010

== ENCOUNTER 2018-02-09 13:57 | Inpatient (IN) | payer OTHER ==
[2018-02-09 17:14] VITALS: BMI 33.6
[2018-02-09] MEDS ORDERED: ALBUTEROL SO4 18 GM HFA INHALER IH PRN (17:45)
--- NOTE | 2018-02-09 17:53 | HP ---
CIWA Score - CIWA Score Nausea/Vomitin-No Nausea/No Vomiting Muscle Tremors: 2 Anxiety: 3 Agitation: 1-Slight > Activity Paroxysmal Sweats: 3 Orientation: 0-Oriented Tacttile Disturbances: 0-None Auditory Disturbances: 0-None Visual Disturbances: 0-None Headache: 3-Moderate CIWA-Ar Total Score: 12 Admission ROS BHS - HPI Chief Complaint: ETOH withdrawal symptoms Allergies/Adverse Reactions: Allergies Allergy/AdvReac Type Severity Reaction Status Date / Time fish derived Allergy Severe Swelling Verified 02/09/18 17:17 Penicillins Allergy Severe Swelling Verified 02/09/18 17:17 lactose Allergy Verified 02/09/18 17:17 History of Present Illness: Patient presents with ETOH withdrawal symptoms. Starting drinking ETOH at age 17. Drinks up to 3 pints daily. Last drink today at 1pm. Also smokes Marajuana 1 -2 monthly. Last time he smoked Marajuana was 2 weeks ago. Denies having seizures from ETOH use/withdrawal. Denies SI/HI/Suicide attempts. Patient reports he was in [facility] ER days ago due to intoxication. Has history of asthma. Exam Limitations: No Limitations - Ebola screening Have you traveled outside of the country in the last 21 days: No Have you had contact with anyone from an Ebola affected area: No Have you been sick,other than usual withdrawal symptoms: No Do you have a fever: No - Review of Systems Constitutional: Chills, Night Sweats, Changes in sleep, Unexplained wgt Loss EENT: reports: Tearing Respiratory: reports: No Symptoms reported Cardiac: reports: No Symptoms Reported GI: reports: Poor Fluid Intake : reports: No Symptoms Reported Musculoskeletal: reports: Muscle Pain Integumentary: reports: Sweating Neuro: reports: Headache Endocrine: reports: Unexplained Weight Loss Hematology: reports: No Symptoms Reported Psychiatric: reports: Orientated x3, Anxious, Depressed Patient History - Patient Medical History Hx Anemia: No Hx Asthma: Yes Hx Chronic Obstructive Pulmonary Disease (COPD): No Hx Cancer: No Hx Cardiac Disorders: No Hx Congestive Heart Failure: No Hx Hypertension: No Hx Hypercholesterolemia: No Hx Pacemaker: No HX Cerebrovascular Accident: No Hx Seizures: No Hx Dementia: No Hx Diabetes: No Hx Gastrointestinal Disorders: No Hx Liver Disease: No Hx Genitourinary Disorders: No Hx Sexually Transmitted Disorders: No Hx Renal Disease (ESRD): No Hx Thyroid Disease: No Hx Human Immunodeficiency Virus (HIV): No (NEGATIVE HX) Hx Hepatitis C: No (negative) Hx Depression: Yes Hx Suicide Attempt: No (denies) Hx Bipolar Disorder: No Hx Schizophrenia: No - Patient Surgical History Past Surgical History: Yes Hx Neurologic Surgery: No Hx Cataract Extraction: No Hx Cardiac Surgery: No Hx Lung Surgery: No Hx Breast Surgery: No Hx Breast Biopsy: No Hx Abdominal Surgery: No Hx Appendectomy: No Hx Cholecystectomy: No Hx Genitourinary Surgery: No Hx Section: No Hx Orthopedic Surgery: Yes (left ankle fracture 2012, screw removed.) Anesthesia Reaction: No - PPD History Previous Implant?: Yes Documented Results: Negative w/proof Date: 11/02/17 Results: 0mm - Smoking Cessation Smoking history: Current every day smoker Have you smoked in the past 12 months: Yes Aproximately how many cigarettes per day: 40 Cigars Per Day: 0 Hx Chewing Tobacco Use: No Initiated information on smoking cessation: Yes 'Breaking Loose' booklet given: 02/09/18 - Substance & Tx. History Hx Alcohol Use: Yes Hx Substance Use: Yes Substance Use Type: Marijuana Hx Substance Use Treatment: Yes - Substances Abused Alcohol Route: Oral Frequency: Daily Amount used: liquor- 3 pints, beer- 1 six pack Age of first use: 17 Date of Last Use: 02/09/18 Marijuana/Hashish Route: Smoking Frequency: 1-3 times last 30 days Amount used: 1 bag Age of first use: 15 Date of Last Use: 02/07/18 Family Disease History - Family Disease History Family History: Denies Admission Physical Exam S - Vital Signs Vital Signs: Vital Signs - 24 hr 02/09/18 17:11 Temperature 96.9 F L Pulse Rate 101 H Respiratory 18 Rate Blood Pressure 123/72 - Physical General Appearance: Yes: Appropriately Dressed, Alcohol on Breath, Sweating, Anxious HEENTM: Yes: EOMI, Hearing grossly Normal, Normocephalic, Normal Voice, BALJEET, Pharynx Normal Respiratory: Yes: Chest Non-Tender, Lungs Clear, Normal Breath Sounds, No Respiratory Distress, No Accessory Muscle Use Neck: Yes: No masses,lesions,Nodules, Supple, Trachea in good position Breast: Yes: Breast Exam Deferred Cardiology: Yes: Regular Rhythm, Regular Rate, S1, S2 Abdominal: Yes: Normal Bowel Sounds, Non Tender, Soft Genitourinary: Yes: Within Normal Limits Back: Yes: Muscle Spasm Musculoskeletal: Yes: Gait Steady, Joint Stiffness, Muscle Pain Extremities: Yes: Non-Tender, Tremors, Swelling Neurological: Yes: security escort II-XII NML intact, Fully Oriented, Alert, Motor Strength 5/5, Depressed Affect Integumentary: Yes: Moist Lymphatic: Yes: Within Normal Limits - Diagnostic (1) Depressed affect Current Visit: Yes Status: Acute (2) Cannabis dependence Current Visit: Yes Status: Acute (3) Alcohol dependence with uncomplicated withdrawal Current Visit: Yes Status: Acute (4) Asthma Current Visit: Yes Status: Chronic Qualifiers: Asthma severity: mild Asthma persistence: unspecified Asthma complication type: uncomplicated Qualified Code(s): J45.909 - Unspecified asthma, uncomplicated (5) Nicotine dependence Current Visit: Yes Status: Chronic Qualifiers: Nicotine product type: cigarettes Substance use status: uncomplicated Qualified Code(s): F17.210 - Nicotine dependence, cigarettes, uncomplicated Cleared for Admission [facility] - Detox or Rehab [facility] Level of Care: Medically Managed Detox Regimen/Protocol: Librium [facility] Breath Alcohol Content Breath Alcohol Content: 0.193 Urine Drug Screen - Results Drug Screen Negative: No Urine Drug Screen Results: THC-Marijuana, BZO-Benzodiazepines
[2018-02-09] MEDS ORDERED: MAGNESIUM CITRATE 300 ML BOTTLE PO PRN (18:03)
[2018-02-09] MEDS ORDERED: MENTHOL/PHENOL 1 EACH UD MM PRN (18:03)
[2018-02-09] MEDS ORDERED: P-EPHED 60MG/TRIPROLIDI 2.5MG TABLET PO PRN (18:03)
[2018-02-09] MEDS ORDERED: MAGNESIUM HYDROX 2400MG/30ML ORAL SUSPENSION 30 ML CUP PO PRN (18:03)
[2018-02-09] MEDS ORDERED: MAG HYDROX/AL HYDROX/SIMETH 30 ML UNIT-DOSE CUP PO PRN (18:03)
[2018-02-09] MEDS ORDERED: IBUPROFEN 400 MG TABLET (FP) PO PRN (18:03)
[2018-02-09] MEDS ORDERED: LOPERAMIDE HCL 2 MG CAPSULE PO PRN (18:03)
[2018-02-09] MEDS ORDERED: hydrOXYzine PAMOATE 50 MG CAPSULE (FP) PO PRN (18:03)
[2018-02-09] MEDS ORDERED: guaiFENesin/D-METHORPHAN HB 10 ML UNIT-DOSE CUPS PO PRN (18:03)
[2018-02-09] MEDS ORDERED: chlordiazePOXIDE HCL 25 MG CAPSULE PO PRN (18:04)
[2018-02-09] MEDS ORDERED: chlordiazePOXIDE HCL 25 MG CAPSULE PO ONE (19:15)
[2018-02-09] MEDS: NICOTINE POLACRILEX 2 MG GUM BC PRN (20:25)
[2018-02-09] MEDS ORDERED: MELATONIN 5 MG TABLETS PO PRN (22:00)
[2018-02-09] MEDS: THIAMINE HCL 100 MG TABLET (FP) PO SCH (22:20)
[2018-02-09] MEDS: chlordiazePOXIDE HCL 25 MG CAPSULE PO SCH (22:20)
[2018-02-10] MEDS: chlordiazePOXIDE HCL 25 MG CAPSULE PO SCH ×4 (05:09→22:55)
[2018-02-10] MEDS: PRENATAL VITAMINS W/ FOLIC ACID TABLET (FP) PO SCH (10:06)
[2018-02-10] MEDS: NICOTINE 21 MG/24 HOURS TOPICAL PATCH TD SCH (10:06)
[2018-02-10] MEDS: NICOTINE POLACRILEX 2 MG GUM BC PRN (10:07)
[2018-02-10 10:22] LABS: HEMATOCRIT 39.3 % (35.4-49); HEMOGLOBIN 13.7 GM/dL (11.7-16.9); MCH 32.5 pg (25.7-33.7); MCHC 34.7 g/dl (32.0-35.9); MEAN CELL VOLUME 93.7 fl (80-96); MEAN PLT VOLUME 8.4 fl (7.5-11.1); PLATELET COUNT 240 K/MM3 (134-434); RDW 14.4 % (11.9-15.9); WHITE BLOOD COUNT 7.2 K/mm3 (4.0-10.0)
[2018-02-10 10:28] LABS: ALBUMIN 3.3 g/dl (3.4-5.0); ANION GAP 5 (8-16); BLOOD UREA NITROGEN 15 mg/dL (7-18); CALCIUM 8.3 mg/dL (8.5-10.1); CHLORIDE 106 mmol/L (98-107); CO2 31 mmol/L (21-32); GLUCOSE,RANDOM 96 mg/dL (74-106); POTASSIUM 4.3 mmol/L (3.5-5.1); SGOT/AST 29 U/L (15-37); SGPT/ALT 41 U/L (12-78); SODIUM 142 mmol/L (136-145)
[2018-02-10 10:30] LABS: ALK PHOS 65 U/L (45-117); BILIRUBIN,TOTAL 0.2 mg/dL (0.2-1.0); CREATININE 0.9 mg/dL (0.7-1.3); TOT PROT 7.2 g/dl (6.4-8.2)
[2018-02-10 11:18] LABS: URINE APPEARANCE TURBID; URINE BILIRUBIN NEGATIVE (<2.0 mg/dL); URINE BLOOD NEGATIVE (NEGATIVE); URINE COLOR AMBER; URINE GLUCOSE (UA) NEGATIVE (NEGATIVE); URINE KETONE NEGATIVE (NEGATIVE); URINE LEUK ESTERASE NEGATIVE (NEGATIVE); URINE NITRITE NEGATIVE (NEGATIVE); URINE PROTEIN NEGATIVE (NEGATIVE); URINE UROBILINOGEN NEGATIVE mg/dL (0.2-1.0)
--- NOTE | 2018-02-10 11:36 | EKG ---
Test Reason : Blood Pressure : / mmHG Vent. Rate : 099 BPM Atrial Rate : 099 BPM P-R Int : 174 ms QRS Dur : 108 ms QT Int : 374 ms P-R-T Axes : 069 016 058 degrees QTc Int : 479 ms NORMAL SINUS RHYTHM INCOMPLETE RIGHT BUNDLE BRANCH BLOCK NONSPECIFIC T WAVE ABNORMALITY PROLONGED QT ABNORMAL ECG WHEN COMPARED WITH ECG OF 12-DEC-2017 19:13, NO SIGNIFICANT CHANGE WAS FOUND Confirmed by HANNY RICKETTS, SONIA ([id number]) on 02/10/2018 11:36:24 AM Referred By: Confirmed By:SONIA GAMINO MD
[2018-02-10] MEDS: NICOTINE POLACRILEX 4 MG GUM BUC PRN ×2 (12:49→17:53)
--- NOTE | 2018-02-10 14:44 | PN ---
S CIWA - CIWA Score Nausea/Vomitin-No Nausea/No Vomiting Muscle Tremors: 3 Anxiety: 4-Mod. Anxious/Guarded Agitation: 2 Paroxysmal Sweats: 3 Orientation: 0-Oriented Tacttile Disturbances: 2-Mild Itch/Numbness/Burn Auditory Disturbances: 0-None Visual Disturbances: 0-None Headache: 3-Moderate CIWA-Ar Total Score: 17 BHS Progress Note (SOAP) Subjective: Tremors, Anxious, H/A, Sweating. Objective: PATIENT A & O X 3, OBSERVED AMBULATING ON UNIT. NO ACUTE DISTRESS. 02/10/18 14:42 Vital Signs Temperature 96.4 F L 02/10/18 09:55 Pulse Rate 83 02/10/18 14:00 Respiratory Rate 20 02/10/18 14:00 Blood Pressure 154/93 02/10/18 09:55 O2 Sat by Pulse Oximetry (%) Laboratory Tests 02/09/18 02/10/18 02/10/18 10:57 07:40 07:40 WBC 7.2 RBC 4.20 Hgb 13.7 Hct 39.3 MCV 93.7 MCH 32.5 MCHC 34.7 RDW 14.4 Plt Count 240 D MPV 8.4 Sodium Potassium Chloride Carbon Dioxide Anion Gap BUN Creatinine Creat Clearance w eGFR Random Glucose Calcium Total Bilirubin AST ALT Alkaline Phosphatase Total Protein Albumin Urine Color [place] Urine Appearance Turbid Urine pH 5.0 Ur Specific [place] 1.023 Urine Protein Negative Urine Glucose (UA) Negative Urine Ketones Negative Urine Blood Negative Urine Nitrite Negative Urine Bilirubin Negative Urine Urobilinogen Negative Ur Leukocyte Esterase Negative RPR Titer HIV 1&2 Antibody Screen Negative HIV P24 Antigen Negative 02/10/18 02/10/18 07:40 07:40 WBC RBC Hgb Hct MCV MCH MCHC RDW Plt Count MPV Sodium 142 Potassium 4.3 Chloride 106 Carbon Dioxide 31 Anion Gap 5 L BUN 15 Creatinine 0.9 Creat Clearance w eGFR > 60 Random Glucose 96 Calcium 8.3 L Total Bilirubin 0.2 D AST 29 D ALT 41 Alkaline Phosphatase 65 Total Protein 7.2 Albumin 3.3 L Urine Color Urine Appearance Urine pH Ur Specific [place] Urine Protein Urine Glucose (UA) Urine Ketones Urine Blood Urine Nitrite Urine Bilirubin Urine Urobilinogen Ur Leukocyte Esterase RPR Titer Nonreactive HIV 1&2 Antibody Screen HIV P24 Antigen LABS NOTED. Assessment: 02/10/18 14:43 WITHDRAWAL SYMPTOMS. Plan: CONTINUE DETOX.
--- NOTE | 2018-02-10 17:56 | CONSULT ---
[facility] Psychiatric Consult - Data Date of interview: 02/10/18 Admission source: [facility] Identifying data: Patient is approached for psychiatric interview.Mr Nolasco DECLINED. " I am fine.I am good.I don't need psychiatric medications or discuss anything with psychiatrists.Thank you." Nursing staff is made aware.
[2018-02-10] MEDS: THIAMINE HCL 100 MG TABLET (FP) PO SCH (22:55)
[2018-02-11] MEDS: chlordiazePOXIDE HCL 25 MG CAPSULE PO SCH ×3 (05:37→16:33)
[2018-02-11] MEDS: NICOTINE POLACRILEX 4 MG GUM BUC PRN ×5 (05:38→22:08)
[2018-02-11] MEDS: NICOTINE 21 MG/24 HOURS TOPICAL PATCH TD SCH (10:18)
[2018-02-11] MEDS: PRENATAL VITAMINS W/ FOLIC ACID TABLET (FP) PO SCH (10:18)
[2018-02-11] MEDS: VITAMINS A AND D TOPICAL OINTMENT 60 GM TUBE TP SCH (13:00)
--- NOTE | 2018-02-11 16:45 | PN ---
[facility] CIWA - CIWA Score Nausea/Vomitin-No Nausea/No Vomiting Muscle Tremors: 3 Anxiety: 4-Mod. Anxious/Guarded Agitation: 3 Paroxysmal Sweats: 3 Orientation: 0-Oriented Tacttile Disturbances: 0-None Auditory Disturbances: 1-Very Mild Visual Disturbances: 2-Mild Sensitivity Headache: 0-None Present CIWA-Ar Total Score: 16 BHS Progress Note (SOAP) Subjective: Tremors, Anxious, Sweating. Objective: PATIENT A & O X 3, OBSERVED AMBULATING ON UNIT. NO ACUTE DISTRESS. 02/11/18 16:45 Vital Signs Temperature 97.8 F 02/11/18 10:32 Pulse Rate 81 02/11/18 10:32 Respiratory Rate 18 02/11/18 10:32 Blood Pressure 132/82 02/11/18 10:32 O2 Sat by Pulse Oximetry (%) Laboratory Tests 02/09/18 02/10/18 02/10/18 10:57 07:40 07:40 WBC 7.2 RBC 4.20 Hgb 13.7 Hct 39.3 MCV 93.7 MCH 32.5 MCHC 34.7 RDW 14.4 Plt Count 240 D MPV 8.4 Sodium Potassium Chloride Carbon Dioxide Anion Gap BUN Creatinine Creat Clearance w eGFR Random Glucose Calcium Total Bilirubin AST ALT Alkaline Phosphatase Total Protein Albumin Urine Color [place] Urine Appearance Turbid Urine pH 5.0 Ur Specific [place] 1.023 Urine Protein Negative Urine Glucose (UA) Negative Urine Ketones Negative Urine Blood Negative Urine Nitrite Negative Urine Bilirubin Negative Urine Urobilinogen Negative Ur Leukocyte Esterase Negative RPR Titer HIV 1&2 Antibody Screen Negative HIV P24 Antigen Negative 02/10/18 02/10/18 07:40 07:40 WBC RBC Hgb Hct MCV MCH MCHC RDW Plt Count MPV Sodium 142 Potassium 4.3 Chloride 106 Carbon Dioxide 31 Anion Gap 5 L BUN 15 Creatinine 0.9 Creat Clearance w eGFR > 60 Random Glucose 96 Calcium 8.3 L Total Bilirubin 0.2 D AST 29 D ALT 41 Alkaline Phosphatase 65 Total Protein 7.2 Albumin 3.3 L Urine Color Urine Appearance Urine pH Ur Specific [place] Urine Protein Urine Glucose (UA) Urine Ketones Urine Blood Urine Nitrite Urine Bilirubin Urine Urobilinogen Ur Leukocyte Esterase RPR Titer Nonreactive HIV 1&2 Antibody Screen HIV P24 Antigen LABS NOTED. Assessment: 02/11/18 16:45 WITHDRAWAL SYMPTOMS. Plan: CONTINUE DETOX. INCREASE DAILY PO FLUID INTAKE.
[2018-02-11] MEDS: THIAMINE HCL 100 MG TABLET (FP) PO SCH (22:08)
[2018-02-11] MEDS: chlordiazePOXIDE 5 MG CAPSULE PO SCH (22:10)
[2018-02-12] MEDS: VITAMINS A AND D TOPICAL OINTMENT 60 GM TUBE TP SCH ×3 (00:04→22:38)
[2018-02-12] MEDS: NICOTINE POLACRILEX 4 MG GUM BUC PRN ×5 (05:15→17:45)
[2018-02-12] MEDS: chlordiazePOXIDE 5 MG CAPSULE PO SCH ×3 (05:15→17:45)
[2018-02-12] MEDS: ACETAMINOPHEN 325 MG TABLET (FP) PO PRN (05:17)
[2018-02-12] MEDS: PRENATAL VITAMINS W/ FOLIC ACID TABLET (FP) PO SCH (10:04)
[2018-02-12] MEDS: NICOTINE 21 MG/24 HOURS TOPICAL PATCH TD SCH (10:05)
--- NOTE | 2018-02-12 12:20 | PN ---
BHS Progress Note (SOAP) Subjective: Some shakes sleepless night sweats Objective: 02/12/18 12:18 A & O x 3 ambulates steadily Vital Signs Temperature 95.3 F L 02/12/18 09:08 Pulse Rate 85 02/12/18 09:08 Respiratory Rate 18 02/12/18 09:08 Blood Pressure 139/86 02/12/18 09:08 O2 Sat by Pulse Oximetry (%) Assessment: 02/12/18 12:20 withdrawal sx Plan: continue detox
[2018-02-12] MEDS: THIAMINE HCL 100 MG TABLET (FP) PO SCH (22:02)
[2018-02-12] MEDS: chlordiazePOXIDE HCL 10 MG CAPSULE PO SCH (22:02)
[2018-02-13] MEDS: chlordiazePOXIDE HCL 10 MG CAPSULE PO SCH ×2 (05:16→11:14)
[2018-02-13] MEDS: ACETAMINOPHEN 325 MG TABLET (FP) PO PRN (05:17)
[2018-02-13] MEDS: NICOTINE POLACRILEX 4 MG GUM BUC PRN (05:19)
[2018-02-13 09:27] VITALS: BP 133/84; PULSE 87; TEMP 95
[2018-02-13] MEDS: VITAMINS A AND D TOPICAL OINTMENT 60 GM TUBE TP SCH (11:14)
[2018-02-13] MEDS: NICOTINE 21 MG/24 HOURS TOPICAL PATCH TD SCH (11:14)
[2018-02-13] MEDS: PRENATAL VITAMINS W/ FOLIC ACID TABLET (FP) PO SCH (11:14)
--- NOTE | 2018-02-13 20:30 | PN ---
BHS Progress Note (SOAP) Subjective: Patient denies current Detox symptoms and reports that he feels well overall. Objective: PATIENT A & O X 3, OBSERVED AMBULATING ON UNIT. NO ACUTE DISTRESS. 02/13/18 20:27 Vital Signs Temperature 95 F L 02/13/18 09:26 Pulse Rate 87 02/13/18 09:26 Respiratory Rate 18 02/13/18 09:26 Blood Pressure 133/84 02/13/18 09:26 O2 Sat by Pulse Oximetry (%) Laboratory Tests 02/09/18 02/10/18 02/10/18 10:57 07:40 07:40 WBC 7.2 RBC 4.20 Hgb 13.7 Hct 39.3 MCV 93.7 MCH 32.5 MCHC 34.7 RDW 14.4 Plt Count 240 D MPV 8.4 Sodium Potassium Chloride Carbon Dioxide Anion Gap BUN Creatinine Creat Clearance w eGFR Random Glucose Calcium Total Bilirubin AST ALT Alkaline Phosphatase Total Protein Albumin Urine Color [place] Urine Appearance Turbid Urine pH 5.0 Ur Specific [place] 1.023 Urine Protein Negative Urine Glucose (UA) Negative Urine Ketones Negative Urine Blood Negative Urine Nitrite Negative Urine Bilirubin Negative Urine Urobilinogen Negative Ur Leukocyte Esterase Negative RPR Titer HIV 1&2 Antibody Screen Negative HIV P24 Antigen Negative 02/10/18 02/10/18 07:40 07:40 WBC RBC Hgb Hct MCV MCH MCHC RDW Plt Count MPV Sodium 142 Potassium 4.3 Chloride 106 Carbon Dioxide 31 Anion Gap 5 L BUN 15 Creatinine 0.9 Creat Clearance w eGFR > 60 Random Glucose 96 Calcium 8.3 L Total Bilirubin 0.2 D AST 29 D ALT 41 Alkaline Phosphatase 65 Total Protein 7.2 Albumin 3.3 L Urine Color Urine Appearance Urine pH Ur Specific [place] Urine Protein Urine Glucose (UA) Urine Ketones Urine Blood Urine Nitrite Urine Bilirubin Urine Urobilinogen Ur Leukocyte Esterase RPR Titer Nonreactive HIV 1&2 Antibody Screen HIV P24 Antigen LABS NOTED. Assessment: 02/13/18 20:28 COMPLETION OF DETOX REGIMEN. Plan: PATIENT SCHEDULED FOR DISCHARGE FROM DETOX UNIT TODAY.
--- NOTE | 2018-02-13 20:31 | DS ---
[facility] Detox Discharge Summary Admission Date: 02/09/18 Discharge Date: 02/13/18 - History Present History: Alcohol Dependence, Cannabis Dependence Additional Comments: PATIENT GOING TO TO [facility] ([place]) FOR AFTERCARE. PATIENT WAS DISCHARGED FROM DETOX UNIT IN STABLE MEDICAL CONDITION. Pertinent Past History: Depression, Asthma, Nicotine Dependence. - Physical Exam Results Vital Signs: Vital Signs Temperature 95 F L 02/13/18 09:26 Pulse Rate 87 02/13/18 09:26 Respiratory Rate 18 02/13/18 09:26 Blood Pressure 133/84 02/13/18 09:26 O2 Sat by Pulse Oximetry (%) Pertinent Admission Physical Exam Findings: WITHDRAWAL SYMPTOMS. Laboratory Tests 02/09/18 02/10/18 02/10/18 10:57 07:40 07:40 WBC 7.2 RBC 4.20 Hgb 13.7 Hct 39.3 MCV 93.7 MCH 32.5 MCHC 34.7 RDW 14.4 Plt Count 240 D MPV 8.4 Sodium Potassium Chloride Carbon Dioxide Anion Gap BUN Creatinine Creat Clearance w eGFR Random Glucose Calcium Total Bilirubin AST ALT Alkaline Phosphatase Total Protein Albumin Urine Color [place] Urine Appearance Turbid Urine pH 5.0 Ur Specific [place] 1.023 Urine Protein Negative Urine Glucose (UA) Negative Urine Ketones Negative Urine Blood Negative Urine Nitrite Negative Urine Bilirubin Negative Urine Urobilinogen Negative Ur Leukocyte Esterase Negative RPR Titer HIV 1&2 Antibody Screen Negative HIV P24 Antigen Negative 02/10/18 02/10/18 07:40 07:40 WBC RBC Hgb Hct MCV MCH MCHC RDW Plt Count MPV Sodium 142 Potassium 4.3 Chloride 106 Carbon Dioxide 31 Anion Gap 5 L BUN 15 Creatinine 0.9 Creat Clearance w eGFR > 60 Random Glucose 96 Calcium 8.3 L Total Bilirubin 0.2 D AST 29 D ALT 41 Alkaline Phosphatase 65 Total Protein 7.2 Albumin 3.3 L Urine Color Urine Appearance Urine pH Ur Specific [place] Urine Protein Urine Glucose (UA) Urine Ketones Urine Blood Urine Nitrite Urine Bilirubin Urine Urobilinogen Ur Leukocyte Esterase RPR Titer Nonreactive HIV 1&2 Antibody Screen HIV P24 Antigen LABS NOTED. - Treatment Hospital Course: Detox Protocol Followed, Detoxed Safely, Responded well, Discharged Condition Good Patient has Accepted a Rehab Referral to: PT. GOING TO [facility] ([place] - Medication Discharge Medications: Ambulatory Orders Albuterol Sulfate Inhaler - [Ventolin HFA Inhaler -] 2 inh PO Q4H PRN #1 canister 08/24/14 - Diagnosis (1) Alcohol dependence with uncomplicated withdrawal Status: Acute (2) Cannabis dependence Status: Acute (3) Depressed affect Status: Acute (4) Asthma Status: Chronic Qualifiers: Asthma severity: mild Asthma persistence: unspecified Asthma complication type: uncomplicated Qualified Code(s): J45.909 - Unspecified asthma, uncomplicated (5) Nicotine dependence Status: Chronic Qualifiers: Nicotine product type: cigarettes Substance use status: uncomplicated Qualified Code(s): F17.210 - Nicotine dependence, cigarettes, uncomplicated - AMA Did Patient Leave Against Medical Advice: No
== END 2018-02-13 08:40 | disposition home or self-care (01) | DRG 775 ==
LOC: YASAS 13:57 → Y3N 18:47
PROVIDERS: ADMIT Internal Medicine; ATTEND Internal Medicine
PROC: HZ2ZZZZ Detoxification Services for Substance Abuse Treatment (ICD-10-PCS; principal; 2018-02-09)
DX: F10.230 Alcohol dependence with withdrawal, uncomplicated (principal); F12.20 Cannabis dependence, uncomplicated; F17.210 Nicotine dependence, cigarettes, uncomplicated; F32.9 Major depressive disorder, single episode, unspecified; J45.909 Unspecified asthma, uncomplicated; Z91.013 Allergy to seafood; Z88.0 Allergy status to penicillin; Z91.011 Allergy to milk products
CPT/HCPCS: 36415; 80053; 81003; 85027; 86593; 87389; 93005; 93010

== ENCOUNTER 2019-07-23 16:10 | Inpatient (IN) | payer OTHER ==
[2019-07-23 17:39] VITALS: BMI 35.9
--- NOTE | 2019-07-23 19:34 | HP ---
CIWA Score Nausea/Vomitin-No Nausea/No Vomiting Muscle Tremors: 1-None Visible, but [place] Anxiety: 0-No Anxiety, at Ease Agitation: 0-Normal Activity Paroxysmal Sweats: 4-Forehead w/Sweat Beads Orientation: 3-Disoriented Date>2 days Tacttile Disturbances: 0-None Auditory Disturbances: 0-None Visual Disturbances: 3-Moderate Sensitivity (to bright lights) Headache: 4-Moderately Severe CIWA-Ar Total Score: 15 - Admission Criteria OASAS Guidelines: Admission for Medically Managed Detox: Requires at least one of the followin. CIWA greater than 12 2. Seizures within the past 24 hours 3. Delirium tremens within the past 24 hours 4. Hallucinations within the past 24 hours 5. Acute intervention needed for co occurring medical disorder 6. Acute intervention needed for co occurring psychiatric disorder 7. Severe withdrawal that cannot be handled at a lower level of care (continued vomiting, continued diarrhea, abnormal vital signs) requiring intravenous medication and/or fluids 8. Patient presents the following: Seizures, delirium tremens or hallucinations in the past 12 hours (BLACK OUTS) Admission Criteria Met: Admission criteria met Admitting History and Physical - Smoking History Smoking history: Current every day smoker Have you smoked in the past 12 months: Yes Aproximately how many cigarettes per day: 40 If you are a former smoker, when did you quit?: 1 month ago - Alcohol/Substance Use Hx Alcohol Use: Yes Admission ROS [facility] Chief Complaint: c/o worsening withdrawal sx's Allergies/Adverse Reactions: Allergies Allergy/AdvReac Type Severity Reaction Status Date / Time fish derived Allergy Severe Swelling Verified 07/23/19 17:30 Penicillins Allergy Severe Swelling Verified 07/23/19 17:30 lactose Allergy Verified 07/23/19 17:30 History of Present Illness: HERE FOR ALCOHOL DETOX. CLIENT IS REFERRED BY [facility] AFTER LEXI DUBOSE FOR BLACKING OUT HE WAS THERE FOR 1 DAY FOR ABSERVATION AND REFERRED HERE. HE REPORTS DAILY ALCOHOL INTAKE. + CIWA, + BLACKOUTS, + EYE CLEANING CUSTODIAN. PRESENTS INTOXICATED WITH ONSET OF WITHDRAWAL SX'S. REPORTS LAST ALCOHOL INTAKE TODAY. REPORTS LONGEST CLEAN TIME 17 YEARS. DENIES ANY FOR THE PAST 1 YEAR. DENIES DT' S. SEIZURE D/O, AVH, SI/HI. LIVES ALONE, UNEMPLOYED. DENIES LEGALS Exam Limitations: Intoxication (BUT CLINICALLY STABLE A/O X3 AROUSABLE) - Ebola screening Have you traveled outside of the country in the last 21 days: No (N) Have you had contact with anyone from an Ebola affected area: No Do you have a fever: No - Review of Systems Constitutional: Chills, Loss of Appetite, Night Sweats, Changes in sleep EENT: reports: No Symptoms Reported Respiratory: reports: No Symptoms reported Cardiac: reports: No Symptoms Reported GI: reports: Poor Appetite, Poor Fluid Intake : reports: No Symptoms Reported Musculoskeletal: reports: No Symptoms Reported Integumentary: reports: No Symptoms Reported Neuro: reports: Other ( black outs) Endocrine: reports: No Symptoms Reported Hematology: reports: No Symptoms Reported Psychiatric: reports: Orientated x3, Agitated (irritable) Other Systems: Reviewed and Negative Patient History - Patient Medical History Hx Anemia: No Hx Asthma: Yes Hx Chronic Obstructive Pulmonary Disease (COPD): No Hx Cancer: No Hx Cardiac Disorders: No Hx Congestive Heart Failure: No Hx Hypertension: No Hx Hypercholesterolemia: No Hx Pacemaker: No HX Cerebrovascular Accident: No Hx Seizures: No Hx Dementia: No Hx Diabetes: No Hx Gastrointestinal Disorders: No Hx Liver Disease: No Hx Genitourinary Disorders: No Hx Sexually Transmitted Disorders: No Hx Renal Disease (ESRD): No Hx Thyroid Disease: No Hx Human Immunodeficiency Virus (HIV): No Hx Hepatitis C: No Hx Depression: No Hx Suicide Attempt: No Hx Bipolar Disorder: No Hx Schizophrenia: No Other Medical History: denies - Patient Surgical History Past Surgical History: Yes Hx Neurologic Surgery: No Hx Cataract Extraction: No Hx Cardiac Surgery: No Hx Lung Surgery: No Hx Breast Surgery: No Hx Breast Biopsy: No Hx Abdominal Surgery: No Hx Appendectomy: No Hx Cholecystectomy: No Hx Genitourinary Surgery: No Hx Section: No Hx Orthopedic Surgery: Yes (left ankle fracture 2013, screw removed.) Anesthesia Reaction: No - PPD History Previous Implant?: Yes Documented Results: Negative w/proof Implanted On Prior R Admission?: Yes Date: 11/02/17 Results: 0mm PPD to be Administered?: Yes - Smoking Cessation Smoking history: Current every day smoker Have you smoked in the past 12 months: Yes Aproximately how many cigarettes per day: 40 If you are a former smoker, when did you quit?: 1 month ago Cigars Per Day: 0 Hx Chewing Tobacco Use: No Initiated information on smoking cessation: Yes 'Breaking Loose' booklet given: 07/23/19 - Substance & Tx. History Hx Alcohol Use: Yes Hx Substance Use: Yes Substance Use Type: Alcohol Hx Substance Use Treatment: Yes ([facility]) - Substances abused Alcohol Substance route: Oral Frequency: Daily Amount used: 3 pints of [place]. Age of first use: 21 Date of last use: 07/23/19 Admission Physical Exam S - Vital Signs Vital Signs: Vital Signs - 24 hr 07/23/19 17:27 Temperature 97.0 F L Pulse Rate 97 H Respiratory 16 Rate Blood Pressure 145/80 - Physical General Appearance: Yes: Intoxicated, Irritable, Sweating, Other (SLURRING OF SPEECH DUE TO INTOXICATION) HEENTM: Yes: EOMI, Normocephalic, BALJEET, Pharynx Normal, Other (DRY MM) Respiratory: Yes: Chest Non-Tender, Lungs Clear, Normal Breath Sounds, No Respiratory Distress, No Accessory Muscle Use Neck: Yes: No masses,lesions,Nodules, Supple, Trachea in good position Breast: Yes: Breasts Symetrical, No Discharge Cardiology: Yes: Regular Rhythm, S1, S2, Tachycardia Abdominal: Yes: Normal Bowel Sounds, Non Tender, Soft, Protuberent Genitourinary: Yes: Within Normal Limits Back: Yes: Normal Inspection Musculoskeletal: Yes: full range of Motion, Other (UNSTEADY GAIT) Extremities: Yes: Non-Tender, Tremors (FELT) Neurological: Yes: Alert, Motor Strength 5/5 Integumentary: Yes: Warm, Moist, Other (FLUSHED) Lymphatic: Yes: Within Normal Limits - Diagnostic (1) At risk for dehydration due to poor fluid intake Current Visit: Yes Status: Acute (2) Dry mucous membranes Current Visit: Yes Status: Acute (3) Risk for falls Current Visit: Yes Status: Acute (4) Alcohol intoxication Current Visit: Yes Status: Acute (5) Alcohol dependence with uncomplicated withdrawal Current Visit: No Status: Acute (6) Asthma Current Visit: No Status: Chronic Qualifiers: Asthma severity: mild Asthma persistence: unspecified Asthma complication type: uncomplicated Qualified Code(s): J45.909 - Unspecified asthma, uncomplicated (7) Drug-induced mood disorder Current Visit: No Status: Chronic (8) Nicotine dependence Current Visit: No Status: Chronic Qualifiers: Nicotine product type: cigarettes Substance use status: uncomplicated Qualified Code(s): F17.210 - Nicotine dependence, cigarettes, uncomplicated Cleared for Admission BHS - Detox or Rehab [facility] Level of Care: Medically Managed Detox Regimen/Protocol: Librium Claeared for Rehab Admission: No Breathalyzer - Breathalyzer Breathalyzer: 0.282 Urine Drug Screen - Test Device Lot number: [id number] Expiration date: 03/15/21 - Control Is test valid?: Yes - Results Drug screen NEGATIVE: No Urine drug screen results: BZO-Benzodiazepines Inpatient Rehab Admission - Rehab Decision to Admit Inpatient rehab admission?: No
[2019-07-23] MEDS ORDERED: MENTHOL/PHENOL 1 EACH UD MM PRN (19:45)
[2019-07-23] MEDS ORDERED: guaiFENesin 200 MG/10 ML 10 ML UNIT-DOSE CUPS PO PRN (19:45)
[2019-07-23] MEDS ORDERED: ACETAMINOPHEN 325 MG TABLET (FP) PO PRN ×2 (19:45)
[2019-07-23] MEDS ORDERED: BISMUTH SUBSALICYLATE 524 MG/30 ML UD PO PRN (19:45)
[2019-07-23] MEDS ORDERED: MAGNESIUM CITRATE 300 ML BOTTLE PO PRN (19:45)
[2019-07-23] MEDS ORDERED: hydrOXYzine PAMOATE 25 MG CAPSULE (FP) PO PRN (19:45)
[2019-07-23] MEDS ORDERED: DICYCLOMINE HCL 10 MG CAPSULE PO PRN (19:45)
[2019-07-23] MEDS ORDERED: MAGNESIUM HYDROX 2400MG/30ML ORAL SUSPENSION 30 ML CUP PO PRN (19:45)
[2019-07-23] MEDS ORDERED: P-EPHED 60MG/TRIPROLIDI 2.5MG TABLET PO PRN (19:45)
[2019-07-23] MEDS ORDERED: ONDANSETRON *ODT* 4 MG TABLET SL PRN (19:45)
[2019-07-23] MEDS ORDERED: MAG HYDROX/AL HYDROX/SIMETH 30 ML UNIT-DOSE CUP PO PRN (19:45)
[2019-07-23] MEDS: NICOTINE POLACRILEX 4 MG GUM BUC PRN (21:52)
[2019-07-23] MEDS: THIAMINE HCL 100 MG TABLET (FP) PO SCH (21:53)
[2019-07-23] MEDS ORDERED: chlordiazePOXIDE HCL 25 MG CAPSULE PO PRN (23:15)
[2019-07-24] MEDS: chlordiazePOXIDE HCL 25 MG CAPSULE PO SCH ×5 (00:01→22:10)
[2019-07-24] MEDS: NICOTINE POLACRILEX 4 MG GUM BUC PRN (05:35)
[2019-07-24] MEDS ORDERED: NICOTINE 21 MG/24 HOURS TOPICAL PATCH TD SCH (10:00)
[2019-07-24] MEDS ORDERED: ALBUTEROL SO4 0.083% IH SOL 2.5 MG/3 ML VIAL.NEB. NEB PRN (10:02)
[2019-07-24] MEDS: PRENATAL VITAMINS W/ FOLIC ACID TABLET (FP) PO SCH (10:07)
--- NOTE | 2019-07-24 10:07 | PN ---
BHS CIWA - CIWA Score Nausea/Vomitin Muscle Tremors: 3 Anxiety: 2 Agitation: 0-Normal Activity Paroxysmal Sweats: 2 Orientation: 0-Oriented Tacttile Disturbances: 1-Very Mild Itch/Numbness Auditory Disturbances: 0-None Visual Disturbances: 0-None Headache: 1-Very Mild CIWA-Ar Total Score: 12 BHS Progress Note (SOAP) Subjective: c/o of acid reflux, interrupted sleep, chills, sweats Objective: 07/24/19 10:04 Vital Signs Temperature 97.9 F 07/24/19 09:14 Pulse Rate 97 H 07/24/19 09:14 Respiratory Rate 20 07/24/19 09:14 Blood Pressure 142/93 07/24/19 09:14 O2 Sat by Pulse Oximetry (%) labs pending Assessment: 07/24/19 10:06 Aox3 no acute distress + anxious + mild hand tremors no adventitious breath sounds full ROM ambulating in the unit withdrawal sx symptoms Plan: increase PO fluids MAT reviewed with patient benefits and risk continue detox
--- NOTE | 2019-07-24 10:57 | EKG ---
Test Reason : Blood Pressure : / mmHG Vent. Rate : 096 BPM Atrial Rate : 096 BPM P-R Int : 158 ms QRS Dur : 106 ms QT Int : 386 ms P-R-T Axes : 059 007 053 degrees QTc Int : 487 ms NORMAL SINUS RHYTHM INCOMPLETE RIGHT BUNDLE BRANCH BLOCK PROLONGED QT ABNORMAL ECG WHEN COMPARED WITH ECG OF 09-FEB-2018 20:28, NO SIGNIFICANT CHANGE WAS FOUND Confirmed by VERONICA RICKETTS, JAY ([id number]) on 07/24/2019 10:57:32 AM Referred By: JAMES RICE Confirmed By:JAY MARTIN MD
[2019-07-24 11:55] LABS: HEMATOCRIT 39.3 % (35.4-49); HEMOGLOBIN 13.4 GM/dL (11.7-16.9); MCH 32.2 pg (25.7-33.7); MEAN CELL VOLUME 94.9 fl (80-96); MEAN PLT VOLUME 8.4 fl (7.5-11.1); PLATELET COUNT 225 K/MM3 (134-434); RBC 4.15 M/mm3 (4.00-5.60); RDW 14.9 % (11.9-15.9); WHITE BLOOD COUNT 6.1 K/mm3 (4.0-10.0)
[2019-07-24 12:11] LABS: ALBUMIN 3.2 g/dl (3.4-5.0); BILIRUBIN,TOTAL 0.3 mg/dL (0.2-1); BLOOD UREA NITROGEN 16.4 mg/dL (7-18); CALCIUM 8.5 mg/dL (8.5-10.1); POTASSIUM 4.2 mmol/L (3.5-5.1); TOT PROT 6.5 g/dl (6.4-8.2)
[2019-07-24 12:15] LABS: PH,URINE 5.5 (5.0-8.0); URINE APPEARANCE CLEAR; URINE BILIRUBIN NEGATIVE (NEGATIVE); URINE COLOR YELLOW; URINE GLUCOSE (UA) NEGATIVE (NEGATIVE); URINE KETONE NEGATIVE (NEGATIVE); URINE LEUK ESTERASE NEGATIVE (NEGATIVE); URINE NITRITE NEGATIVE (NEGATIVE); URINE PROTEIN NEGATIVE (NEGATIVE)
[2019-07-24] MEDS: NICOTINE POLACRILEX 2 MG GUM BUC PRN ×2 (20:28→22:11)
[2019-07-24] MEDS: THIAMINE HCL 100 MG TABLET (FP) PO SCH (22:10)
[2019-07-25] MEDS: chlordiazePOXIDE HCL 25 MG CAPSULE PO SCH ×4 (05:27→22:34)
[2019-07-25] MEDS: NICOTINE POLACRILEX 2 MG GUM BUC PRN ×2 (05:28→08:23)
[2019-07-25] MEDS: PRENATAL VITAMINS W/ FOLIC ACID TABLET (FP) PO SCH (10:06)
[2019-07-25] MEDS: NICOTINE POLACRILEX 4 MG GUM BUC PRN ×3 (13:27→19:06)
--- NOTE | 2019-07-25 17:44 | PN ---
S CIWA - CIWA Score Nausea/Vomitin-No Nausea/No Vomiting Muscle Tremors: 2 Anxiety: 3 Agitation: 2 Paroxysmal Sweats: 3 Orientation: 2-Disoriented Date<2 days Tacttile Disturbances: 0-None Auditory Disturbances: 0-None Visual Disturbances: 0-None Headache: 0-None Present CIWA-Ar Total Score: 12 BHS Progress Note (SOAP) Subjective: Anxious, Sweating, Tremors. Objective: PATIENT A & O X 2 (UNCERTAIN ABOUT CURRENT DAY/ DATE). PATIENT OBSERVED AMBULATING ON DETOX UNIT UNASSISTED. IN NO ACUTE DISTRESS. 07/25/19 17:43 Vital Signs Temperature 97.1 F L 07/25/19 14:17 Pulse Rate 86 07/25/19 14:17 Respiratory Rate 18 07/25/19 14:17 Blood Pressure 149/93 07/25/19 14:17 O2 Sat by Pulse Oximetry (%) Laboratory Tests 07/24/19 07/24/19 07/24/19 08:45 08:45 08:45 WBC 6.1 RBC 4.15 Hgb 13.4 Hct 39.3 MCV 94.9 MCH 32.2 MCHC 34.0 RDW 14.9 Plt Count 225 MPV 8.4 Sodium 141 Potassium 4.2 Chloride 106 Carbon Dioxide 27 Anion Gap 8 BUN 16.4 Creatinine 1.0 Est GFR (CKD-EPI)AfAm 97.08 Est GFR (CKD-EPI)NonAf 83.76 Random Glucose 91 Calcium 8.5 Total Bilirubin 0.3 AST 30 ALT 45 Alkaline Phosphatase 63 Total Protein 6.5 Albumin 3.2 L Urine Color Urine Appearance Urine pH Ur Specific [place] Urine Protein Urine Glucose (UA) Urine Ketones Urine Blood Urine Nitrite Urine Bilirubin Urine Urobilinogen Ur Leukocyte Esterase RPR Titer Nonreactive 07/24/19 10:50 WBC RBC Hgb Hct MCV MCH MCHC RDW Plt Count MPV Sodium Potassium Chloride Carbon Dioxide Anion Gap BUN Creatinine Est GFR (CKD-EPI)AfAm Est GFR (CKD-EPI)NonAf Random Glucose Calcium Total Bilirubin AST ALT Alkaline Phosphatase Total Protein Albumin Urine Color Yellow Urine Appearance Clear Urine pH 5.5 Ur Specific [place] [employer] 1.025 Urine Protein Negative Urine Glucose (UA) Negative Urine Ketones Negative Urine Blood Negative Urine Nitrite Negative Urine Bilirubin Negative Urine Urobilinogen 1.0 Ur Leukocyte Esterase Negative RPR Titer LABS NOTED. Assessment: 07/25/19 17:44 WITHDRAWAL SYMPTOMS. Plan: CONTINUE DETOX. INCREASE DAILY PO WATER INTAKE.
[2019-07-25] MEDS: THIAMINE HCL 100 MG TABLET (FP) PO SCH (21:10)
[2019-07-25] MEDS: MELATONIN 5 MG TABLETS PO PRN (21:11)
[2019-07-26] MEDS ORDERED: chlordiazePOXIDE HCL 10 MG CAPSULE PO PRN
[2019-07-26] MEDS: chlordiazePOXIDE HCL 10 MG CAPSULE PO SCH ×4 (05:13→22:04)
[2019-07-26] MEDS: NICOTINE POLACRILEX 4 MG GUM BUC PRN ×5 (05:14→20:14)
[2019-07-26] MEDS: PRENATAL VITAMINS W/ FOLIC ACID TABLET (FP) PO SCH (10:07)
[2019-07-26] MEDS: METHOCARBAMOL 500 MG TABLET PO PRN ×2 (11:41→17:20)
--- NOTE | 2019-07-26 14:19 | EKG ---
Test Reason : Blood Pressure : / mmHG Vent. Rate : 082 BPM Atrial Rate : 082 BPM P-R Int : 160 ms QRS Dur : 098 ms QT Int : 406 ms P-R-T Axes : 067 009 020 degrees QTc Int : 474 ms NORMAL SINUS RHYTHM INCOMPLETE RIGHT BUNDLE BRANCH BLOCK CANNOT RULE OUT INFERIOR INFARCT , AGE UNDETERMINED ABNORMAL ECG WHEN COMPARED WITH ECG OF 23-JUL-2019 20:08, NONSPECIFIC T WAVE ABNORMALITY NO LONGER EVIDENT IN ANTEROLATERAL LEADS Confirmed by VIDAL MERINO MD ([id number]) on 07/26/2019 2:18:51 PM Referred By: Confirmed By:VIDAL MERINO MD
--- NOTE | 2019-07-26 17:19 | PN ---
[facility] CIWA - CIWA Score Nausea/Vomitin-No Nausea/No Vomiting Muscle Tremors: 2 Anxiety: 3 Agitation: 2 Paroxysmal Sweats: 3 Orientation: 0-Oriented Tacttile Disturbances: 0-None Auditory Disturbances: 0-None Visual Disturbances: 0-None Headache: 0-None Present CIWA-Ar Total Score: 10 S Progress Note (SOAP) Subjective: Anxious, Sweating, Tremors. Objective: PATIENT A & O X 3, OBSERVED AMBULATING ON DETOX UNIT UNASSISTED. IN NO ACUTE DISTRESS. 07/26/19 17:20 Vital Signs Temperature 96.5 F L 07/26/19 13:42 Pulse Rate 86 07/26/19 13:42 Respiratory Rate 18 07/26/19 13:42 Blood Pressure 129/75 07/26/19 13:42 O2 Sat by Pulse Oximetry (%) Laboratory Tests 07/24/19 07/24/19 07/24/19 08:45 08:45 08:45 WBC 6.1 RBC 4.15 Hgb 13.4 Hct 39.3 MCV 94.9 MCH 32.2 MCHC 34.0 RDW 14.9 Plt Count 225 MPV 8.4 Sodium 141 Potassium 4.2 Chloride 106 Carbon Dioxide 27 Anion Gap 8 BUN 16.4 Creatinine 1.0 Est GFR (CKD-EPI)AfAm 97.08 Est GFR (CKD-EPI)NonAf 83.76 Random Glucose 91 Calcium 8.5 Total Bilirubin 0.3 AST 30 ALT 45 Alkaline Phosphatase 63 Total Protein 6.5 Albumin 3.2 L Urine Color Urine Appearance Urine pH Ur Specific [place] Urine Protein Urine Glucose (UA) Urine Ketones Urine Blood Urine Nitrite Urine Bilirubin Urine Urobilinogen Ur Leukocyte Esterase RPR Titer Nonreactive 07/24/19 10:50 WBC RBC Hgb Hct MCV MCH MCHC RDW Plt Count MPV Sodium Potassium Chloride Carbon Dioxide Anion Gap BUN Creatinine Est GFR (CKD-EPI)AfAm Est GFR (CKD-EPI)NonAf Random Glucose Calcium Total Bilirubin AST ALT Alkaline Phosphatase Total Protein Albumin Urine Color Yellow Urine Appearance Clear Urine pH 5.5 Ur Specific [place] 1.025 Urine Protein Negative Urine Glucose (UA) Negative Urine Ketones Negative Urine Blood Negative Urine Nitrite Negative Urine Bilirubin Negative Urine Urobilinogen 1.0 Ur Leukocyte Esterase Negative RPR Titer LABS NOTED. Assessment: 07/26/19 17:20 WITHDRAWAL SYMPTOMS. Plan: CONTINUE DETOX. INCREASE DAILY PO WATER INTAKE. DURING AM DAILY ROUNDS ASSESSMENT TODAY, PATIENT REPORTED CHEST PAIN X APPROX. LAST TWO DAYS. PAIN IS DULL ACHING, INTERMITTENT, FOCALIZED IN SMALL AREA AROUND BASE OF RIGHT SIDE OF STERNUM. PAIN IS GENERALLY AGGRAVATED BY ACTIVITY. AFFECTED AREA IS TENDER UPON PALPATION. NO WOUNDS, ERYTHEMA, OR SWELLING NOTED AT AFFECTED SITE. PATIENT DENIES HISTORY OF TRAUMATIC INJURY TO AFFECTED AREA. PATIENT DENIES KNOWN HISTORY OF CARDIOVASCULAR DISEASE. STAT ECG DONE. RESULT: INCOMPLETE RIGHT BBB (ALSO NOTED ON DETOX ADMISSION ECG REPORT), 'CANNOT R/O INFERIOR INFARCT.' PATIENT ADVISED TO IMMEDIATELY NOTIFY MEDICAL / NURSING STAFF SHOULD PAIN OCCUR MORE FREQUENTLY OR SHOULD IT BECOME MORE SEVERE AND TO FOLLOW-UP WITH [facility] AFTER DISCHARGE FROM DETOX FOR FURTHER MEDICAL ASSESSMENT OF ECG RESULTS. PATIENT VERBALIZED UNDERSTANDING OF RECOMMENDATION.
[2019-07-26] MEDS: MELATONIN 5 MG TABLETS PO PRN (22:03)
[2019-07-26] MEDS: THIAMINE HCL 100 MG TABLET (FP) PO SCH (22:04)
[2019-07-27] MEDS: chlordiazePOXIDE HCL 10 MG CAPSULE PO SCH ×2 (05:56→18:01)
[2019-07-27] MEDS: NICOTINE POLACRILEX 4 MG GUM BUC PRN ×5 (08:28→20:14)
[2019-07-27] MEDS: METHOCARBAMOL 500 MG TABLET PO PRN (10:26)
[2019-07-27] MEDS: PRENATAL VITAMINS W/ FOLIC ACID TABLET (FP) PO SCH (10:26)
--- NOTE | 2019-07-27 12:17 | PN ---
S CIWA - CIWA Score Nausea/Vomitin-No Nausea/No Vomiting Muscle Tremors: None Anxiety: 2 Agitation: 0-Normal Activity Paroxysmal Sweats: 2 Orientation: 0-Oriented Tacttile Disturbances: 0-None Auditory Disturbances: 0-None Visual Disturbances: 0-None Headache: 1-Very Mild CIWA-Ar Total Score: 5 BHS Progress Note (SOAP) Subjective: c/o mild headache, sweats, and anxiety. Objective: 07/27/19 12:16 Vital Signs 07/27/19 07/27/19 06:58 09:28 Temperature 97.3 F L 96.8 F L Pulse Rate 72 79 Respiratory 18 20 Rate Blood Pressure 106/65 113/74 Lab Results WBC 6.1 K/mm3 (4.0-10.0) 07/24/19 08:45 RBC 4.15 M/mm3 (4.00-5.60) 07/24/19 08:45 Hgb 13.4 GM/dL (11.7-16.9) 07/24/19 08:45 Hct 39.3 % (35.4-49) 07/24/19 08:45 MCV 94.9 fl (80-96) 07/24/19 08:45 MCHC 34.0 g/dl (32.0-35.9) 07/24/19 08:45 RDW 14.9 % (11.9-15.9) 07/24/19 08:45 Plt Count 225 K/MM3 (134-434) 07/24/19 08:45 Sodium 141 mmol/L (136-145) 07/24/19 08:45 Potassium 4.2 mmol/L (3.5-5.1) 07/24/19 08:45 Chloride 106 mmol/L (98-107) 07/24/19 08:45 Carbon Dioxide 27 mmol/L (21-32) 07/24/19 08:45 Anion Gap 8 MMOL/L (8-16) 07/24/19 08:45 BUN 16.4 mg/dL (7-18) 07/24/19 08:45 Creatinine 1.0 mg/dL (0.55-1.3) 07/24/19 08:45 Random Glucose 91 mg/dL (74-106) 07/24/19 08:45 Calcium 8.5 mg/dL (8.5-10.1) 07/24/19 08:45 Labs noted. Assessment: 07/27/19 12:16 AOX3, in no acute respiratory distress. Full ROM, ambulating in the unit. Withdrawal symptoms. For d/c tomorrow. Plan: continue detox. D/C in AM.
[2019-07-27] MEDS: IBUPROFEN 400 MG TABLET (FP) PO PRN (18:03)
[2019-07-27] MEDS: THIAMINE HCL 100 MG TABLET (FP) PO SCH (22:44)
[2019-07-28] MEDS ORDERED: chlordiazePOXIDE HCL 10 MG CAPSULE PO ONE (05:00)
[2019-07-28] MEDS: NICOTINE POLACRILEX 4 MG GUM BUC PRN (06:06)
[2019-07-28] MEDS: IBUPROFEN 400 MG TABLET (FP) PO PRN (06:11)
[2019-07-28 06:30] VITALS: BP 108/61; PULSE 73; TEMP 97
--- NOTE | 2019-07-28 13:24 | DS ---
[facility] Detox Discharge Summary Admission Date: 07/23/19 Discharge Date: 07/28/19 - History Present History: Alcohol Dependence Additional Comments: Pt is medically cleared and discharge today. Pt completed his detox protocol. Pt is encouraged to follow-up with [facility] outpatient program and also to follow-up with his pmd. Pt verbalized understanding of the information given. Pt is alert and oriented x3 and in no respiratory distress. Pertinent Past History: h/o asthma and alcohol use disorder. - Physical Exam Results Vital Signs: Vital Signs Temperature 97 F L 07/28/19 06:30 Pulse Rate 73 07/28/19 06:30 Respiratory Rate 18 07/28/19 06:30 Blood Pressure 108/61 07/28/19 06:30 O2 Sat by Pulse Oximetry (%) Vital Signs 07/28/19 06:30 Temperature 97 F L Pulse Rate 73 Respiratory 18 Rate Blood Pressure 108/61 Lab Results WBC 6.1 K/mm3 (4.0-10.0) 07/24/19 08:45 RBC 4.15 M/mm3 (4.00-5.60) 07/24/19 08:45 Hgb 13.4 GM/dL (11.7-16.9) 07/24/19 08:45 Hct 39.3 % (35.4-49) 07/24/19 08:45 MCV 94.9 fl (80-96) 07/24/19 08:45 MCHC 34.0 g/dl (32.0-35.9) 07/24/19 08:45 RDW 14.9 % (11.9-15.9) 07/24/19 08:45 Plt Count 225 K/MM3 (134-434) 07/24/19 08:45 Sodium 141 mmol/L (136-145) 07/24/19 08:45 Potassium 4.2 mmol/L (3.5-5.1) 07/24/19 08:45 Chloride 106 mmol/L (98-107) 07/24/19 08:45 Carbon Dioxide 27 mmol/L (21-32) 07/24/19 08:45 Anion Gap 8 MMOL/L (8-16) 07/24/19 08:45 BUN 16.4 mg/dL (7-18) 07/24/19 08:45 Creatinine 1.0 mg/dL (0.55-1.3) 07/24/19 08:45 Random Glucose 91 mg/dL (74-106) 07/24/19 08:45 Calcium 8.5 mg/dL (8.5-10.1) 07/24/19 08:45 Labs noted. Pertinent Admission Physical Exam Findings: withdrawal symptoms. - Treatment Hospital Course: Detox Protocol Followed, Detoxed Safely, Responded well, Discharged Condition Good - Medication Discharge Medications: Ambulatory Orders Albuterol Sulfate Inhaler - [Ventolin HFA Inhaler -] 2 inh PO Q4H PRN #1 canister 08/24/14 - Diagnosis (1) Alcohol dependence with uncomplicated withdrawal Status: Acute (2) Cannabis dependence Status: Acute (3) Opioid abuse Status: Acute (4) Alcohol dependence Status: Chronic (5) Asthma Status: Chronic Qualifiers: Asthma severity: mild Asthma persistence: unspecified Asthma complication type: uncomplicated Qualified Code(s): J45.909 - Unspecified asthma, uncomplicated (6) Nicotine dependence Status: Chronic Qualifiers: Nicotine product type: cigarettes Substance use status: uncomplicated Qualified Code(s): F17.210 - Nicotine dependence, cigarettes, uncomplicated - AMA Did Patient Leave Against Medical Advice: No
== END 2019-07-28 08:52 | disposition home or self-care (01) | DRG 773 ==
LOC: YASAS 16:10 → Y3N 19:52
PROVIDERS: ADMIT Allergy & Immunology; ATTEND Allergy & Immunology
PROC: HZ2ZZZZ Detoxification Services for Substance Abuse Treatment (ICD-10-PCS; principal; 2019-07-23)
DX: F10.230 Alcohol dependence with withdrawal, uncomplicated (principal); F11.20 Opioid dependence, uncomplicated; F12.20 Cannabis dependence, uncomplicated; F17.210 Nicotine dependence, cigarettes, uncomplicated; F19.24 Other psychoactive substance dependence with psychoactive substance-induced mood disorder; J45.909 Unspecified asthma, uncomplicated; R68.2 Dry mouth, unspecified; Z91.81 History of falling; Z91.89 Other specified personal risk factors, not elsewhere classified; Z91.018 Allergy to other foods; Z88.0 Allergy status to penicillin
CPT/HCPCS: 36415; 80053; 81003; 85027; 86593; 93005; 93010

== ENCOUNTER 2019-08-13 12:36 | Inpatient (IN) | payer OTHER ==
[2019-08-13 13:35] VITALS: BMI 37.0
--- NOTE | 2019-08-13 14:57 | HP ---
CIWA Score Nausea/Vomitin-No Nausea/No Vomiting Muscle Tremors: 4-Moderate,w/Arms Extend Anxiety: 4-Mod. Anxious/Guarded Agitation: 4-Moderately Restless Paroxysmal Sweats: 3 Orientation: 0-Oriented Tacttile Disturbances: 0-None Auditory Disturbances: 0-None Visual Disturbances: 0-None Headache: 2-Mild CIWA-Ar Total Score: 17 - Admission Criteria OASAS Guidelines: Admission for Medically Managed Detox: Requires at least one of the followin. CIWA greater than 12 2. Seizures within the past 24 hours 3. Delirium tremens within the past 24 hours 4. Hallucinations within the past 24 hours 5. Acute intervention needed for co occurring medical disorder 6. Acute intervention needed for co occurring psychiatric disorder 7. Severe withdrawal that cannot be handled at a lower level of care (continued vomiting, continued diarrhea, abnormal vital signs) requiring intravenous medication and/or fluids 8. Admitting History and Physical - Admission Chief Complaint: I am here because I want to stop drinking History of Present Illness: pt is a 54yr old male with a history of alcohol dependence seeking detox for treatment. History Source: Patient Limitations to Obtaining History: Intoxication - Past Medical History Pulmonary: Yes: Asthma Gastrointestinal: Yes: GERD Psych: Yes: Depression Musculoskeletal: Yes: Other Rheumatology: Yes: Other ENT: Yes: Other Endocrine: Yes: Other - Past Surgical History Past Surgical History: Yes: None - Advance Directives Advance Directives: Yes: Living Will - Smoking History Smoking history: Current every day smoker Have you smoked in the past 12 months: Yes Aproximately how many cigarettes per day: 40 - Alcohol/Substance Use Hx Alcohol Use: Yes Number of Drinks Daily: 3 History of Substance Use: reports: None - Social History Usual Living Arrangement: Yes: Alone Do you think of yourself as: Straight/Heterosexual ADL: Independent History of Recent Travel: No Admission ROS S - HPI Chief Complaint: I am here because I want to stop drinking Allergies/Adverse Reactions: Allergies Allergy/AdvReac Type Severity Reaction Status Date / Time fish derived Allergy Severe Swelling Verified 08/13/19 13:25 Penicillins Allergy Severe Swelling Verified 08/13/19 13:25 lactose Allergy Verified 08/13/19 13:25 History of Present Illness: pt is a 54yrold male with a long history of alcohol dependence seeking detox for treatment. Exam Limitations: No Limitations - Ebola screening Have you traveled outside of the country in the last 21 days: No Have you had contact with anyone from an Ebola affected area: No Have you been sick,other than usual withdrawal symptoms: No Do you have a fever: No - Review of Systems Constitutional: Chills, Diaphoresis, Night Sweats, Changes in sleep EENT: reports: Tearing Respiratory: reports: No Symptoms reported Cardiac: reports: Syncope GI: reports: Poor Appetite, Poor Fluid Intake : reports: No Symptoms Reported Musculoskeletal: reports: No Symptoms Reported Integumentary: reports: Flushing, Sweating Neuro: reports: Headache, Tingling, Tremors Endocrine: reports: Excessive Sweating, Flushing, Intolerance to Cold, Intolerance to Heat Hematology: reports: No Symptoms Reported Psychiatric: reports: Judgement Intact, Mood/Affect Appropiate, Orientated x3, Agitated, Anxious Other Systems: Reviewed and Negative Patient History - Patient Medical History Hx Anemia: No Hx Asthma: Yes Hx Chronic Obstructive Pulmonary Disease (COPD): No Hx Cancer: No Hx Cardiac Disorders: No Hx Congestive Heart Failure: No Hx Hypertension: No Hx Hypercholesterolemia: No Hx Pacemaker: No HX Cerebrovascular Accident: No Hx Seizures: No Hx Dementia: No Hx Diabetes: No Hx Gastrointestinal Disorders: No Hx Liver Disease: No Hx Genitourinary Disorders: No Hx Sexually Transmitted Disorders: No Hx Renal Disease (ESRD): No Hx Thyroid Disease: No Hx Human Immunodeficiency Virus (HIV): No Hx Hepatitis C: No Hx Depression: Yes Hx Suicide Attempt: No (pt denies) Hx Bipolar Disorder: No Hx Schizophrenia: No - Patient Surgical History Past Surgical History: Yes Hx Neurologic Surgery: No Hx Cataract Extraction: No Hx Cardiac Surgery: No Hx Lung Surgery: No Hx Breast Surgery: No Hx Breast Biopsy: No Hx Abdominal Surgery: No Hx Appendectomy: No Hx Cholecystectomy: No Hx Genitourinary Surgery: No Hx Section: No Hx Orthopedic Surgery: Yes (left ankle fracture 2012, screw removed.) Anesthesia Reaction: No - PPD History Previous Implant?: Yes Documented Results: Negative w/proof Date: 07/25/19 Results: 0mm PPD to be Administered?: No - Reproductive History Patient is a Female of Child Bearing Age (11 -55 yrs old): No - Smoking Cessation Smoking history: Current every day smoker Have you smoked in the past 12 months: Yes Aproximately how many cigarettes per day: 40 Cigars Per Day: 0 Hx Chewing Tobacco Use: No Initiated information on smoking cessation: Yes 'Breaking Loose' booklet given: 08/13/19 - Substance & Tx. History Hx Alcohol Use: Yes Hx Substance Use: No Substance Use Type: Alcohol Hx Substance Use Treatment: Yes (last detox [facility] 07/2019) - Substances abused Alcohol Substance route: Oral Frequency: Daily Amount used: 3 pints of [place]. Age of first use: 21 Date of last use: 08/13/[address] [facility] - Vital Signs Vital Signs: Vital Signs - 24 hr 08/13/19 13:25 Temperature 96.9 F L Pulse Rate 108 H Respiratory 18 Rate Blood Pressure 139/83 - Physical General Appearance: Yes: Appropriately Dressed, Obese, Irritable, Sweating, Anxious HEENTM: Yes: Normal Voice, Nasal Congestion Respiratory: Yes: Lungs Clear, Normal Breath Sounds, No Respiratory Distress Neck: Yes: Within Normal Limits Breast: Yes: Within Normal Limits, No Discharge Cardiology: Yes: Regular Rhythm, Regular Rate, S1, S2 Abdominal: Yes: Normal Bowel Sounds, Non Tender, Soft Genitourinary: Yes: Within Normal Limits Back: Yes: Normal Inspection Musculoskeletal: Yes: full range of Motion Extremities: Yes: Normal Capillary Refill, Normal Inspection, Tremors Neurological: Yes: Fully Oriented, Alert, Normal Response Integumentary: Yes: Normal Color Lymphatic: Yes: Within Normal Limits - Diagnostic (1) Alcohol dependence with uncomplicated withdrawal Current Visit: Yes Status: Chronic (2) Alcohol intoxication Current Visit: Yes Status: Chronic Qualifiers: Complication of substance-induced condition: with unspecified complication Qualified Code(s): F10.929 - Alcohol use, unspecified with intoxication, unspecified (3) Risk for falls Current Visit: Yes Status: Chronic (4) Asthma Current Visit: Yes Status: Chronic Qualifiers: Asthma severity: mild Asthma persistence: unspecified Asthma complication type: uncomplicated Qualified Code(s): J45.909 - Unspecified asthma, uncomplicated (5) Nicotine dependence Current Visit: Yes Status: Chronic Qualifiers: Nicotine product type: cigarettes Substance use status: uncomplicated Qualified Code(s): F17.210 - Nicotine dependence, cigarettes, uncomplicated Cleared for Admission S - Detox or Rehab [facility] Level of Care: Medically Managed Detox Regimen/Protocol: Librium Breathalyzer - Breathalyzer Breathalyzer: 0.205 Urine Drug Screen - Test Device Lot number: [id number] Expiration date: 04/14/21 - Control Is test valid?: Yes - Results Drug screen NEGATIVE: No Urine drug screen results: BZO-Benzodiazepines Inpatient Rehab Admission - Rehab Decision to Admit Inpatient rehab admission?: No
[2019-08-13] MEDS ORDERED: METHOCARBAMOL 500 MG TABLET PO PRN (15:12)
[2019-08-13] MEDS ORDERED: chlordiazePOXIDE HCL 25 MG CAPSULE PO ONE (15:12)
[2019-08-13] MEDS ORDERED: ACETAMINOPHEN 325 MG TABLET (FP) PO PRN ×2 (15:12)
[2019-08-13] MEDS ORDERED: BISMUTH SUBSALICYLATE 262 MG/15 ML BTL PO PRN (15:12)
[2019-08-13] MEDS ORDERED: MELATONIN 5 MG TABLETS PO PRN (15:12)
[2019-08-13] MEDS ORDERED: hydrOXYzine PAMOATE 25 MG CAPSULE (FP) PO PRN (15:12)
[2019-08-13] MEDS ORDERED: MENTHOL/PHENOL 1 EACH UD MM PRN (15:12)
[2019-08-13] MEDS ORDERED: MAGNESIUM HYDROX 2400MG/30ML ORAL SUSPENSION 30 ML CUP PO PRN (15:12)
[2019-08-13] MEDS ORDERED: ONDANSETRON *ODT* 4 MG TABLET SL PRN (15:12)
[2019-08-13] MEDS ORDERED: MAGNESIUM CITRATE 300 ML BOTTLE PO PRN (15:12)
[2019-08-13] MEDS ORDERED: MAG HYDROX/AL HYDROX/SIMETH 30 ML UNIT-DOSE CUP PO PRN (15:12)
[2019-08-13] MEDS ORDERED: chlordiazePOXIDE HCL 25 MG CAPSULE PO PRN (15:12)
[2019-08-13] MEDS: chlordiazePOXIDE HCL 25 MG CAPSULE PO SCH ×2 (17:39→22:15)
[2019-08-13] MEDS: NICOTINE POLACRILEX 4 MG GUM BUC PRN ×2 (17:39→20:52)
[2019-08-13] MEDS: IBUPROFEN 400 MG TABLET (FP) PO PRN (17:42)
[2019-08-13] MEDS: THIAMINE HCL 100 MG TABLET (FP) PO SCH (22:15)
[2019-08-14] MEDS: chlordiazePOXIDE HCL 25 MG CAPSULE PO SCH ×4 (05:46→22:17)
[2019-08-14] MEDS: NICOTINE POLACRILEX 4 MG GUM BUC PRN ×6 (05:47→22:17)
--- NOTE | 2019-08-14 09:52 | PN ---
S CIWA - CIWA Score Nausea/Vomitin-Mild Nausea/No Vomiting Muscle Tremors: 2 Anxiety: 2 Agitation: 2 Paroxysmal Sweats: No Perspiration Orientation: 0-Oriented Tacttile Disturbances: 1-Very Mild Itch/Numbness Auditory Disturbances: 0-None Visual Disturbances: 0-None Headache: 1-Very Mild CIWA-Ar Total Score: 9 BHS Progress Note (SOAP) Subjective: alert,irritable,anxious,interrupted sleep Objective: 08/14/19 09:48 Vital Signs Temperature 98.1 F 08/14/19 09:11 Pulse Rate 92 H 08/14/19 09:11 Respiratory Rate 18 08/14/19 09:11 Blood Pressure 121/59 L 08/14/19 09:11 O2 Sat by Pulse Oximetry (%) 08/14/19 09:51 labs pending Assessment: 08/14/19 09:51 withdrawal symptom Plan: continue detox librium regimen
[2019-08-14 09:56] LABS: HEMATOCRIT 39.6 % (35.4-49); HEMOGLOBIN 13.5 GM/dL (11.7-16.9); MCH 31.9 pg (25.7-33.7); MEAN PLT VOLUME 8.4 fl (7.5-11.1); PLATELET COUNT 199 K/MM3 (134-434); RBC 4.21 M/mm3 (4.00-5.60); RDW 14.5 % (11.9-15.9); WHITE BLOOD COUNT 6.9 K/mm3 (4.0-10.0)
[2019-08-14 10:24] LABS: ALBUMIN 3.2 g/dl (3.4-5.0); BILIRUBIN,TOTAL 0.3 mg/dL (0.2-1); BLOOD UREA NITROGEN 19.6 mg/dL (7-18); POTASSIUM 4.1 mmol/L (3.5-5.1); TOT PROT 6.6 g/dl (6.4-8.2)
[2019-08-14] MEDS: PRENATAL VITAMINS W/ FOLIC ACID TABLET (FP) PO SCH (11:09)
--- NOTE | 2019-08-14 11:11 | CONSULT ---
[facility] Psychiatric Consult - Data Date of interview: 08/14/19 Admission source: Self-referred Identifying data: Mr Nolasco is a 54 years old male seeking detox treatment for alcohol Substance Abuse History: Reportedly history of alcohol use. Refer to addiction counselor's summary for further information Medical History: Significant for bronchial asthma, GERD and history of orthosurgery for fracture left ankle in 2012. Smokes cigarettes 2 ppd Psychiatric History: Patient was approached at bedside while asleep. He told writer technical publications:"I'm good I don't need to talk to you"
[2019-08-14] MEDS: IBUPROFEN 400 MG TABLET (FP) PO PRN (18:07)
[2019-08-14] MEDS: THIAMINE HCL 100 MG TABLET (FP) PO SCH (22:17)
[2019-08-15] MEDS: chlordiazePOXIDE HCL 25 MG CAPSULE PO SCH ×4 (06:21→22:13)
[2019-08-15] MEDS: NICOTINE POLACRILEX 4 MG GUM BUC PRN ×6 (06:21→19:34)
--- NOTE | 2019-08-15 09:53 | PN ---
[facility] CIWA - CIWA Score Nausea/Vomitin-Mild Nausea/No Vomiting Muscle Tremors: 2 Anxiety: 2 Agitation: 2 Paroxysmal Sweats: No Perspiration Orientation: 0-Oriented Tacttile Disturbances: 1-Very Mild Itch/Numbness Auditory Disturbances: 0-None Visual Disturbances: 0-None Headache: 1-Very Mild CIWA-Ar Total Score: 9 S Progress Note (SOAP) Subjective: alert,irritable,anxious,interrupted sleep Objective: 08/15/19 09:52 Vital Signs Temperature 98.1 F 08/15/19 09:19 Pulse Rate 89 08/15/19 09:19 Respiratory Rate 18 08/15/19 09:19 Blood Pressure 125/74 08/15/19 09:19 O2 Sat by Pulse Oximetry (%) Laboratory Last Values WBC 6.9 K/mm3 (4.0-10.0) 08/14/19 08:00 RBC 4.21 M/mm3 (4.00-5.60) 08/14/19 08:00 Hgb 13.5 GM/dL (11.7-16.9) 08/14/19 08:00 Hct 39.6 % (35.4-49) 08/14/19 08:00 MCV 94.0 fl (80-96) 08/14/19 08:00 MCH 31.9 pg (25.7-33.7) 08/14/19 08:00 MCHC 34.0 g/dl (32.0-35.9) 08/14/19 08:00 RDW 14.5 % (11.9-15.9) 08/14/19 08:00 Plt Count 199 K/MM3 (134-434) 08/14/19 08:00 MPV 8.4 fl (7.5-11.1) 08/14/19 08:00 Sodium 137 mmol/L (136-145) 08/14/19 08:00 Potassium 4.1 mmol/L (3.5-5.1) 08/14/19 08:00 Chloride 106 mmol/L (98-107) 08/14/19 08:00 Carbon Dioxide 24 mmol/L (21-32) 08/14/19 08:00 Anion Gap 7 MMOL/L (8-16) L 08/14/19 08:00 BUN 19.6 mg/dL (7-18) H 08/14/19 08:00 Creatinine 1.0 mg/dL (0.55-1.3) 08/14/19 08:00 Est GFR (CKD-EPI)AfAm 97.08 08/14/19 08:00 Est GFR (CKD-EPI)NonAf 83.76 08/14/19 08:00 Random Glucose 93 mg/dL (74-106) 08/14/19 08:00 Calcium 8.0 mg/dL (8.5-10.1) L 08/14/19 08:00 Total Bilirubin 0.3 mg/dL (0.2-1) 08/14/19 08:00 AST 29 U/L (15-37) 08/14/19 08:00 ALT 42 U/L (13-61) 08/14/19 08:00 Alkaline Phosphatase 64 U/L (45-117) 08/14/19 08:00 Total Protein 6.6 g/dl (6.4-8.2) 08/14/19 08:00 Albumin 3.2 g/dl (3.4-5.0) L 08/14/19 08:00 RPR Titer Nonreactive (NONREACTIVE) 08/14/19 08:00 Assessment: 08/15/19 09:52 withdrawal symptom Plan: continue detox librium regimen,encourage oral fluid
[2019-08-15] MEDS: PRENATAL VITAMINS W/ FOLIC ACID TABLET (FP) PO SCH (10:05)
[2019-08-15] MEDS: THIAMINE HCL 100 MG TABLET (FP) PO SCH (22:13)
[2019-08-16] MEDS: chlordiazePOXIDE HCL 10 MG CAPSULE PO SCH ×4 (05:19→22:03)
[2019-08-16] MEDS: NICOTINE POLACRILEX 4 MG GUM BUC PRN ×6 (05:21→21:17)
[2019-08-16] MEDS: PRENATAL VITAMINS W/ FOLIC ACID TABLET (FP) PO SCH (10:07)
--- NOTE | 2019-08-16 11:42 | PN ---
S CIWA - CIWA Score Nausea/Vomitin-Mild Nausea/No Vomiting Muscle Tremors: 1-None Visible, but [place] Anxiety: 1-Mildly Anxious Agitation: 1-Slight > Activity Paroxysmal Sweats: 2 Orientation: 0-Oriented Tacttile Disturbances: 2-Mild Itch/Numbness/Burn Auditory Disturbances: 0-None Visual Disturbances: 0-None Headache: 0-None Present CIWA-Ar Total Score: 8 BHS Progress Note (SOAP) Subjective: interrupted sleep, sweats,lbp Objective: 08/16/19 11:40 Vital Signs Temperature 97.2 F L 08/16/19 09:30 Pulse Rate 93 H 08/16/19 09:30 Respiratory Rate 18 08/16/19 09:30 Blood Pressure 138/76 08/16/19 09:30 O2 Sat by Pulse Oximetry (%) Vital Signs Temperature 97.2 F L 08/16/19 09:30 Pulse Rate 93 H 08/16/19 09:30 Respiratory Rate 18 08/16/19 09:30 Blood Pressure 138/76 08/16/19 09:30 O2 Sat by Pulse Oximetry (%) Laboratory Tests 08/14/19 08/14/19 08/14/19 08:00 08:00 08:00 WBC 6.9 RBC 4.21 Hgb 13.5 Hct 39.6 MCV 94.0 MCH 31.9 MCHC 34.0 RDW 14.5 Plt Count 199 MPV 8.4 Sodium 137 Potassium 4.1 Chloride 106 Carbon Dioxide 24 Anion Gap 7 L BUN 19.6 H Creatinine 1.0 Est GFR (CKD-EPI)AfAm 97.08 Est GFR (CKD-EPI)NonAf 83.76 Random Glucose 93 Calcium 8.0 L Total Bilirubin 0.3 AST 29 ALT 42 Alkaline Phosphatase 64 Total Protein 6.6 Albumin 3.2 L RPR Titer Nonreactive pt aox3 in nad ambulating Assessment: 08/16/19 11:41 withdrawal sx's lbp Plan: cont. detox increase fluids motrin prn robaxin prn
[2019-08-16] MEDS: THIAMINE HCL 100 MG TABLET (FP) PO SCH (21:17)
[2019-08-17] MEDS: chlordiazePOXIDE HCL 10 MG CAPSULE PO SCH ×2 (06:07→18:00)
[2019-08-17] MEDS: NICOTINE POLACRILEX 4 MG GUM BUC PRN ×5 (06:08→20:14)
--- NOTE | 2019-08-17 09:43 | PN ---
S CIWA - CIWA Score Nausea/Vomitin-No Nausea/No Vomiting Muscle Tremors: 1-None Visible, but [place] Anxiety: 1-Mildly Anxious Agitation: 1-Slight > Activity Paroxysmal Sweats: No Perspiration Orientation: 0-Oriented Tacttile Disturbances: 0-None Auditory Disturbances: 0-None Visual Disturbances: 0-None Headache: 0-None Present CIWA-Ar Total Score: 3 BHS Progress Note (SOAP) Subjective: body aches anxiety Objective: 08/17/19 09:43 Vital Signs Temperature 97.6 F 08/17/19 09:19 Pulse Rate 85 08/17/19 09:19 Respiratory Rate 18 08/17/19 09:19 Blood Pressure 141/80 08/17/19 09:19 O2 Sat by Pulse Oximetry (%) aaox3 ambulating no acute distress Assessment: 08/17/19 09:43 mild withdrawals Plan: continue detox motrin/muscle relaxant d/c in am
[2019-08-17] MEDS: PRENATAL VITAMINS W/ FOLIC ACID TABLET (FP) PO SCH (10:18)
[2019-08-17] MEDS: THIAMINE HCL 100 MG TABLET (FP) PO SCH (22:17)
[2019-08-18] MEDS ORDERED: chlordiazePOXIDE HCL 10 MG CAPSULE PO ONE (05:00)
[2019-08-18 06:04] VITALS: BP 113/68; PULSE 74; TEMP 97.5
[2019-08-18] MEDS: NICOTINE POLACRILEX 4 MG GUM BUC PRN (06:34)
--- NOTE | 2019-08-18 12:03 | DS ---
[facility] Detox Discharge Summary Admission Date: 08/13/19 Discharge Date: 08/18/19 - History Present History: Alcohol Dependence Additional Comments: Patient completed detox successfully and discharged safely. Instructed to follow up with PCP within 1-2 weeks or sooner if needed. Pertinent Past History: Alcohol dependence Asthma Nicotine dependence - Physical Exam Results Vital Signs: Vital Signs Temperature 97.5 F L 08/18/19 06:00 Pulse Rate 74 08/18/19 06:00 Respiratory Rate 18 08/18/19 06:00 Blood Pressure 113/68 08/18/19 06:00 O2 Sat by Pulse Oximetry (%) Pertinent Admission Physical Exam Findings: Withdrawal sxs Laboratory Tests 08/14/19 08/14/19 08/14/19 08:00 08:00 08:00 WBC 6.9 RBC 4.21 Hgb 13.5 Hct 39.6 MCV 94.0 MCH 31.9 MCHC 34.0 RDW 14.5 Plt Count 199 MPV 8.4 Sodium 137 Potassium 4.1 Chloride 106 Carbon Dioxide 24 Anion Gap 7 L BUN 19.6 H Creatinine 1.0 Est GFR (CKD-EPI)AfAm 97.08 Est GFR (CKD-EPI)NonAf 83.76 Random Glucose 93 Calcium 8.0 L Total Bilirubin 0.3 AST 29 ALT 42 Alkaline Phosphatase 64 Total Protein 6.6 Albumin 3.2 L RPR Titer Nonreactive Labs reviewed: bun 19.6 (high): encouraged to drink more water for hydration, albumin 3.2: encourage high protein intake, Ca 8 - Treatment Hospital Course: Detox Protocol Followed, Detoxed Safely, Responded well, Discharged Condition Good - Medication Discharge Medications: Ambulatory Orders Albuterol Sulfate Inhaler - [Ventolin HFA Inhaler -] 2 inh PO Q4H PRN #1 canister 08/24/14 - Diagnosis (1) Hypoalbuminemia Status: Acute (2) Azotemia Status: Acute (3) Alcohol dependence with uncomplicated withdrawal Status: Acute (4) Asthma Status: Chronic Qualifiers: Asthma severity: mild Asthma persistence: unspecified Asthma complication type: uncomplicated Qualified Code(s): J45.909 - Unspecified asthma, uncomplicated (5) Nicotine dependence Status: Chronic Qualifiers: Nicotine product type: cigarettes Substance use status: uncomplicated Qualified Code(s): F17.210 - Nicotine dependence, cigarettes, uncomplicated - AMA Did Patient Leave Against Medical Advice: No (Instructed to follow up with PCP within 1-2 weeks or sooner)
== END 2019-08-18 09:00 | disposition home or self-care (01) | DRG 775 ==
LOC: YASAS 12:36 → Y6N 15:22
PROVIDERS: ADMIT Allergy & Immunology; ATTEND Allergy & Immunology
PROC: HZ2ZZZZ Detoxification Services for Substance Abuse Treatment (ICD-10-PCS; principal; 2019-08-13)
DX: F10.230 Alcohol dependence with withdrawal, uncomplicated (principal); F10.220 Alcohol dependence with intoxication, uncomplicated; F17.210 Nicotine dependence, cigarettes, uncomplicated; J45.909 Unspecified asthma, uncomplicated; K21.9 Gastro-esophageal reflux disease without esophagitis; R77.0 Abnormality of albumin; R79.89 Other specified abnormal findings of blood chemistry; M54.5 Low back pain; E66.9 Obesity, unspecified; Z68.37 Body mass index [BMI] 37.0-37.9, adult; Z88.0 Allergy status to penicillin; Z91.013 Allergy to seafood; Z91.011 Allergy to milk products; Z91.81 History of falling
CPT/HCPCS: 36415; 80053; 85027; 86593

== ENCOUNTER 2020-06-20 11:57 | Inpatient (IN) | payer OTHER ==
--- NOTE | 2020-06-20 14:26 | BHS.RME ---
Substance Use & Tx History - Substance Use History Alcohol Substance amount: 1 pint of vodka, 2-6 packs of beer Frequency of use: Daily Substance route: Oral Date of Last Use: 06/20/20 Xanax Substance amount: 7 strips/week Frequency of use: Daily Substance route: Oral - Last Treatment Date of last treatment: 02/24/20 Physical/Psych/Mental Status - Behavior General Behavior: Increased activity (restlessness, agitation) Eye Contact: Normal Other Behaviors: Mannerisms - Cooperativeness Cooperativeness: Reluctant - Thinking Thought Processes: Tight - Physical Health Problems Is patient presently having any pain?: No Does patient presently have any injuries (include location): No Does patient currently have a fever: No CIWA Nausea/Vomitin-Mild Nausea/No Vomiting Muscle Tremors: 1-None Visible, but [place] Anxiety: 2 Agitation: 2 Paroxysmal Sweats: 1-Minimal Palms Moist Orientation: 1-Uncertain about Date Tacttile Disturbances: 0-None Auditory Disturbances: 1-Very Mild Visual Disturbances: 0-None Headache: 2-Mild CIWA-Ar Total Score: 11
--- NOTE | 2020-06-20 14:34 | HP ---
CIWA Score Nausea/Vomitin-Mild Nausea/No Vomiting Muscle Tremors: 1-None Visible, but [place] Anxiety: 2 Agitation: 2 Paroxysmal Sweats: 1-Minimal Palms Moist Orientation: 1-Uncertain about Date Tacttile Disturbances: 1-Very Mild Itch/Numbness Auditory Disturbances: 1-Very Mild Visual Disturbances: 0-None Headache: 2-Mild CIWA-Ar Total Score: 12 - Admission Criteria OASAS Guidelines: Admission for Medically Managed Detox: Requires at least one of the followin. CIWA greater than 12 2. Seizures within the past 24 hours 3. Delirium tremens within the past 24 hours 4. Hallucinations within the past 24 hours 5. Acute intervention needed for co occurring medical disorder 6. Acute intervention needed for co occurring psychiatric disorder 7. Severe withdrawal that cannot be handled at a lower level of care (continued vomiting, continued diarrhea, abnormal vital signs) requiring intravenous medication and/or fluids 8. Patient presents the following: CIWA greater than 12 Admission Criteria Met: Admission criteria met Admitting History and Physical - Past Medical History Pulmonary: Yes: Asthma Gastrointestinal: Yes: GERD Psych: Yes: Depression Musculoskeletal: Yes: Other Rheumatology: Yes: Other ENT: Yes: Other Endocrine: Yes: Other - Past Surgical History Past Surgical History: Yes: None - Smoking History Smoking history: Current every day smoker Have you smoked in the past 12 months: Yes Aproximately how many cigarettes per day: 30 If you are a former smoker, when did you quit?: 1 month ago - Alcohol/Substance Use Hx Alcohol Use: Yes Number of Drinks Daily: 3 History of Substance Use: reports: None - Social History ADL: Independent History of Recent Travel: No Admission ROS [facility] - [facility] Chief Complaint: I am drinking too much Allergies/Adverse Reactions: Allergies Allergy/AdvReac Type Severity Reaction Status Date / Time fish derived Allergy Severe Swelling Verified 06/20/20 14:41 Penicillins Allergy Severe Swelling Verified 06/20/20 14:41 lactose Allergy Verified 06/20/20 14:41 History of Present Illness: Patient is a 55 years old man who presents to [facility] requesting admission to detox. His last treatment at [facility] was on 02/2020, he denies seizures or blackouts. Exam Limitations: No Limitations - Ebola screening Have you traveled outside of the country in the last 21 days: No Have you had contact with anyone from an Ebola affected area: No Have you been sick,other than usual withdrawal symptoms: No Do you have a fever: No - Review of Systems Constitutional: Loss of Appetite, Changes in sleep EENT: reports: No Symptoms Reported Respiratory: reports: No Symptoms reported GI: reports: Nausea, Poor Fluid Intake, Abdominal cramping : reports: No Symptoms Reported Musculoskeletal: reports: Back Pain, Muscle Pain, Muscle Weakness Integumentary: reports: Sweating Neuro: reports: Headache, Weakness Endocrine: reports: No Symptoms Reported Hematology: reports: No Symptoms Reported Psychiatric: reports: No Sypmtoms Reported Other Systems: Reviewed and Negative Patient History - Patient Medical History Hx Anemia: No Hx Asthma: No Hx Chronic Obstructive Pulmonary Disease (COPD): No Hx Cancer: No Hx Cardiac Disorders: No Hx Congestive Heart Failure: No Hx Hypertension: No Hx Hypercholesterolemia: No Hx Pacemaker: No HX Cerebrovascular Accident: No Hx Seizures: No Hx Dementia: No Hx Diabetes: No Hx Gastrointestinal Disorders: No Hx Liver Disease: No Hx Genitourinary Disorders: No Hx Sexually Transmitted Disorders: No Hx Renal Disease (ESRD): No Hx Thyroid Disease: No Hx Human Immunodeficiency Virus (HIV): No Hx Hepatitis C: No Hx Depression: No Hx Suicide Attempt: No Hx Bipolar Disorder: No Hx Schizophrenia: No - Patient Surgical History Past Surgical History: Yes Hx Neurologic Surgery: No Hx Cataract Extraction: No Hx Cardiac Surgery: No Hx Lung Surgery: No Hx Breast Surgery: No Hx Breast Biopsy: No Hx Abdominal Surgery: No Hx Appendectomy: No Hx Cholecystectomy: No Hx Genitourinary Surgery: No Hx Section: No Hx Orthopedic Surgery: Yes (left ankle fracture 2013) Anesthesia Reaction: No - PPD History Previous Implant?: Yes Documented Results: Negative w/proof Implanted On Prior [facility] Admission?: Yes Date: 07/25/19 Results: 0mm PPD to be Administered?: Yes - Smoking Cessation Smoking history: Current every day smoker Have you smoked in the past 12 months: Yes Aproximately how many cigarettes per day: 20 Cigars Per Day: 0 Hx Chewing Tobacco Use: No Initiated information on smoking cessation: Yes 'Breaking Loose' booklet given: 06/20/20 Admission Physical Exam [facility] - Physical General Appearance: Yes: No Apparent Distress, Alcohol on Breath HEENTM: Yes: Hearing grossly Normal, Normocephalic, Normal Voice Respiratory: Yes: Chest Non-Tender, Lungs Clear, Normal Breath Sounds, No Respiratory Distress, No Accessory Muscle Use Neck: Yes: No masses,lesions,Nodules, Supple Breast: Yes: Breast Exam Deferred Cardiology: Yes: Regular Rhythm, Regular Rate Abdominal: Yes: Normal Bowel Sounds, Non Tender, Soft Genitourinary: Yes: Within Normal Limits Back: Yes: Normal Inspection Musculoskeletal: Yes: full range of Motion, Back pain Extremities: Yes: Non-Tender, Tremors (mild), Swelling (LEs more in the right), Other (left knee dry scab) Neurological: Yes: Alert, Normal Mood/Affect, Normal Response Integumentary: Yes: Normal Color Lymphatic: Yes: Within Normal Limits - Diagnostic (1) Alcohol dependence with uncomplicated withdrawal Current Visit: Yes Status: Acute (2) Nicotine dependence Current Visit: Yes Status: Acute Qualifiers: Nicotine product type: cigarettes Substance use status: uncomplicated Qualified Code(s): F17.210 - Nicotine dependence, cigarettes, uncomplicated (3) Xanax use disorder, mild Current Visit: Yes Status: Acute Cleared for Admission [facility] - Detox or Rehab [facility] Level of Care: Medically Managed Detox Regimen/Protocol: Librium Claeared for Rehab Admission: No Breathalyzer - Breathalyzer Breathalyzer: 0.205 Urine Drug Screen - Test Device Lot number: [id number] Expiration date: 01/21/22 - Control Is test valid?: Yes - Results Drug screen NEGATIVE: No Urine drug screen results: BZO-Benzodiazepines Inpatient Rehab Admission - Rehab Decision to Admit Inpatient rehab admission?: No
[2020-06-20] MEDS ORDERED: BISMUTH SUBSALICYLATE 524 MG/30 ML UD PO PRN (14:37)
[2020-06-20] MEDS ORDERED: IBUPROFEN 400 MG TABLET (FP) PO PRN (14:37)
[2020-06-20] MEDS ORDERED: MENTHOL/PHENOL 1 EACH UD MM PRN (14:37)
[2020-06-20] MEDS ORDERED: METHOCARBAMOL 500 MG TABLET PO PRN (14:37)
[2020-06-20] MEDS ORDERED: ACETAMINOPHEN 325 MG TABLET (FP) PO PRN ×2 (14:37)
[2020-06-20] MEDS ORDERED: MAGNESIUM HYDROX 2400MG/30ML ORAL SUSPENSION 30 ML CUP PO PRN (14:37)
[2020-06-20] MEDS ORDERED: MAG HYDROX/AL HYDROX/SIMETH 30 ML UNIT-DOSE CUP PO PRN (14:37)
[2020-06-20] MEDS ORDERED: ONDANSETRON *ODT* 4 MG TABLET SL ONE (14:37)
[2020-06-20] MEDS ORDERED: chlordiazePOXIDE HCL 10 MG CAPSULE PO PRN (14:37)
[2020-06-20] MEDS ORDERED: MAGNESIUM CITRATE 300 ML BOTTLE PO PRN (14:37)
[2020-06-20 14:44] VITALS: BMI 35.4
[2020-06-20] MEDS: hydrOXYzine PAMOATE 25 MG CAPSULE (FP) PO SCH ×2 (18:27→22:06)
[2020-06-20] MEDS: chlordiazePOXIDE HCL 25 MG CAPSULE PO SCH (22:06)
[2020-06-20] MEDS: THIAMINE HCL 100 MG TABLET (FP) PO SCH (22:07)
[2020-06-20] MEDS: MELATONIN 5 MG TABLETS PO SCH (22:07)
[2020-06-21] MEDS: chlordiazePOXIDE HCL 25 MG CAPSULE PO SCH ×3 (05:09→22:07)
[2020-06-21] MEDS: hydrOXYzine PAMOATE 25 MG CAPSULE (FP) PO SCH ×5 (05:10→22:08)
[2020-06-21] MEDS ORDERED: ALBUTEROL SO4 HFA INHALER IH PRN (09:08)
--- NOTE | 2020-06-21 09:11 | PN ---
S CIWA - CIWA Score Nausea/Vomitin-Mild Nausea/No Vomiting Muscle Tremors: 3 Anxiety: 2 Agitation: 1-Slight > Activity Paroxysmal Sweats: 1-Minimal Palms Moist Orientation: 0-Oriented Tacttile Disturbances: 0-None Auditory Disturbances: 0-None Visual Disturbances: 2-Mild Sensitivity Headache: 1-Very Mild CIWA-Ar Total Score: 11 S Progress Note (SOAP) Subjective: 55 years old male was admitted on 06/20/20 for alcohol and benzo withdrawal sx management treating with librium detox regiment alert speech clearly states that tremor with sweat and little diarrhea prefers oral hydration health teaching on pulmonary insults related to alcohol and benzo abuse as well as cigarette related asthma episodes Objective: 06/21/20 09:12 Vital Signs - 24 hr 06/20/20 06/20/20 06/20/20 14:42 15:36 16:36 Temperature 97.8 F 97.8 F 97.3 F L Pulse Rate 103 H 105 H 101 H Respiratory 18 20 18 Rate Blood Pressure 120/76 122/75 125/66 O2 Sat by Pulse 98 98 Oximetry (%) 06/20/20 06/21/20 20:47 06:10 Temperature 97.8 F 98.1 F Pulse Rate 93 H 75 Respiratory 18 18 Rate Blood Pressure 146/85 120/74 O2 Sat by Pulse 96 95 Oximetry (%) 06/21/20 09:12 lab pending Assessment: 06/21/20 09:12 alcohol withdrawal asthma Plan: librium regiment ventolin q4h prn
[2020-06-21] MEDS: PRENATAL VITAMINS W/ FOLIC ACID TABLET (FP) PO SCH (10:12)
[2020-06-21] MEDS: NICOTINE POLACRILEX 2 MG GUM BUC PRN ×3 (10:13→15:47)
[2020-06-21] MEDS: NICOTINE 7 MG/24 HOURS TOPICAL PATCH TD SCH (10:14)
[2020-06-21 11:10] LABS: ALBUMIN 3.1 g/dl (3.4-5.0); BILIRUBIN,TOTAL 0.7 mg/dL (0.2-1); BLOOD UREA NITROGEN 16.7 mg/dL (7-18); CALCIUM 7.9 mg/dL (8.5-10.1); CREATININE 0.9 mg/dL (0.55-1.3); POTASSIUM 3.8 mmol/L (3.5-5.1); TOT PROT 6.5 g/dl (6.4-8.2)
[2020-06-21 11:35] LABS: HEMATOCRIT 40.6 % (35.4-49); HEMOGLOBIN 13.6 GM/dL (11.7-16.9); MCH 31.8 pg (25.7-33.7); MCHC 33.5 g/dl (32.0-35.9); MEAN CELL VOLUME 94.7 fl (80-96); MEAN PLT VOLUME 8.4 fl (7.5-11.1); PLATELET COUNT 155 K/MM3 (134-434); RBC 4.29 M/mm3 (4.00-5.60); RDW 14.9 % (11.9-15.9); WHITE BLOOD COUNT 6.3 K/mm3 (4.0-10.0)
[2020-06-21] MEDS: cloNIDine HCL 0.1 MG TABLET PO PRN (22:07)
[2020-06-21] MEDS: MELATONIN 5 MG TABLETS PO SCH (22:08)
[2020-06-21] MEDS: THIAMINE HCL 100 MG TABLET (FP) PO SCH (22:08)
[2020-06-22] MEDS: chlordiazePOXIDE 5 MG CAPSULE PO SCH ×3 (05:24→21:14)
[2020-06-22] MEDS: hydrOXYzine PAMOATE 25 MG CAPSULE (FP) PO SCH ×5 (05:25→21:14)
[2020-06-22] MEDS: NICOTINE POLACRILEX 2 MG GUM BUC PRN ×4 (09:01→21:08)
[2020-06-22] MEDS: PRENATAL VITAMINS W/ FOLIC ACID TABLET (FP) PO SCH (10:13)
[2020-06-22] MEDS: NICOTINE 7 MG/24 HOURS TOPICAL PATCH TD SCH (10:14)
--- NOTE | 2020-06-22 14:04 | PN ---
S CIWA - CIWA Score Nausea/Vomitin-Mild Nausea/No Vomiting Muscle Tremors: 3 Anxiety: 2 Agitation: 2 Paroxysmal Sweats: 1-Minimal Palms Moist Orientation: 0-Oriented Tacttile Disturbances: 1-Very Mild Itch/Numbness Auditory Disturbances: 0-None Visual Disturbances: 0-None Headache: 2-Mild CIWA-Ar Total Score: 12 BHS Progress Note (SOAP) Subjective: alert,irritable,anxious,interrupted sleep,aching pain in the body,back Objective: 06/22/20 14:03 Vital Signs Temperature 98.2 F 06/22/20 13:09 Pulse Rate 91 H 06/22/20 13:09 Respiratory Rate 20 06/22/20 13:09 Blood Pressure 131/89 06/22/20 13:09 O2 Sat by Pulse Oximetry (%) 100 06/22/20 13:09 Laboratory Last Values WBC 6.3 K/mm3 (4.0-10.0) 06/21/20 07:30 RBC 4.29 M/mm3 (4.00-5.60) 06/21/20 07:30 Hgb 13.6 GM/dL (11.7-16.9) 06/21/20 07:30 Hct 40.6 % (35.4-49) 06/21/20 07:30 MCV 94.7 fl (80-96) 06/21/20 07:30 MCH 31.8 pg (25.7-33.7) 06/21/20 07:30 MCHC 33.5 g/dl (32.0-35.9) 06/21/20 07:30 RDW 14.9 % (11.9-15.9) D 06/21/20 07:30 Plt Count 155 K/MM3 (134-434) D 06/21/20 07:30 MPV 8.4 fl (7.5-11.1) 06/21/20 07:30 Sodium 140 mmol/L (136-145) 06/21/20 07:20 Potassium 3.8 mmol/L (3.5-5.1) 06/21/20 07:20 Chloride 104 mmol/L (98-107) 06/21/20 07:20 Carbon Dioxide 28 mmol/L (21-32) 06/21/20 07:20 Anion Gap 8 MMOL/L (8-16) 06/21/20 07:20 BUN 16.7 mg/dL (7-18) 06/21/20 07:20 Creatinine 0.9 mg/dL (0.55-1.3) 06/21/20 07:20 Est GFR (CKD-EPI)AfAm 109.50 06/21/20 07:20 Est GFR (CKD-EPI)NonAf 94.48 06/21/20 07:20 Random Glucose 85 mg/dL (74-106) 06/21/20 07:20 Calcium 7.9 mg/dL (8.5-10.1) L 06/21/20 07:20 Total Bilirubin 0.7 mg/dL (0.2-1) 06/21/20 07:20 AST 23 U/L (15-37) 06/21/20 07:20 ALT 32 U/L (13-61) 06/21/20 07:20 Alkaline Phosphatase 74 U/L (45-117) 06/21/20 07:20 Total Protein 6.5 g/dl (6.4-8.2) 06/21/20 07:20 Albumin 3.1 g/dl (3.4-5.0) L 06/21/20 07:20 Syphilis Serology Non-reactive (NONREACTIVE) 06/21/20 07:20 COVID-19 (FERNANDEZ) Not detected (Not Detected) 06/20/20 15:02 HIV Ag/Ab Combo Qual Negative (NEGATIVE) 06/21/20 07:20 Assessment: 06/22/20 14:04 withdrawal symptom Plan: continue detox librium regimen
[2020-06-22] MEDS: MELATONIN 5 MG TABLETS PO SCH (21:14)
[2020-06-22] MEDS: THIAMINE HCL 100 MG TABLET (FP) PO SCH (21:14)
[2020-06-22] MEDS: cloNIDine HCL 0.1 MG TABLET PO PRN (21:15)
[2020-06-23] MEDS ORDERED: chlordiazePOXIDE HCL 10 MG CAPSULE PO PRN
[2020-06-23] MEDS ORDERED: chlordiazePOXIDE HCL 10 MG CAPSULE PO SCH (05:00)
[2020-06-23] MEDS: NICOTINE POLACRILEX 2 MG GUM BUC PRN (05:15)
[2020-06-23] MEDS: hydrOXYzine PAMOATE 25 MG CAPSULE (FP) PO SCH (05:15)
[2020-06-23 06:23] VITALS: TEMP 97.1
[2020-06-23 09:12] VITALS: BP 128/75; PULSE 75
--- NOTE | 2020-06-23 14:20 | DS ---
[facility] Detox Discharge Summary Admission Date: 06/20/20 Discharge Date: 06/23/20 - History Present History: Alcohol Dependence, Sedative Dependence Additional Comments: 55 years old male was admitted on 06/20/20 for alcohol and benzo withdrawal sx management treated with librium detox regiment mr palomino prefers to leave detox unit today instead of 06/24/20 due to return to [facility] and follow up with [facility] counseling service in [place] for alcohol abuse treatment General Appearance: Yes: No Apparent Distress HEENTM: Yes: Hearing grossly Normal, Normocephalic, Normal Voice Respiratory: Yes: Chest Non-Tender, Lungs Clear, Normal Breath Sounds, No Respiratory Distress, No Accessory Muscle Use Neck: Yes: No masses,lesions,Nodules, Supple Breast: Yes: Breast Exam Deferred Cardiology: Yes: Regular Rhythm, Regular Rate Abdominal: Yes: Normal Bowel Sounds, Non Tender, Soft Genitourinary: Yes: Within Normal Limits Back: Yes: Normal Inspection Musculoskeletal: Yes: full range of Motion, Back pain Extremities: Yes: Non-Tender, Tremors (mild), Swelling (LEs more in the right), Other (left knee dry scab) Neurological: Yes: Alert, Normal Mood/Affect, Normal Response Integumentary: Yes: Normal Color Lymphatic: Yes: Within Normal Limits Pertinent Past History: time for discharge 48 minutes treatment team met with mr palomino to discuss the benefits of librium regimen completion mr palomino insists to leave the detox and begins alcohol rehab at [facility] - Physical Exam Results Vital Signs: Vital Signs Temperature 97.1 F L 06/23/20 08:36 Pulse Rate 75 06/23/20 08:36 Respiratory Rate 18 06/23/20 08:36 Blood Pressure 128/75 06/23/20 08:36 O2 Sat by Pulse Oximetry (%) 99 06/23/20 05:05 Pertinent Admission Physical Exam Findings: alcohol and benzo withdrawal Laboratory Tests 06/20/20 06/21/20 06/21/20 15:02 07:20 07:20 WBC RBC Hgb Hct MCV MCH MCHC RDW Plt Count MPV Sodium 140 Potassium 3.8 Chloride 104 Carbon Dioxide 28 Anion Gap 8 BUN 16.7 Creatinine 0.9 Est GFR (CKD-EPI)AfAm 109.50 Est GFR (CKD-EPI)NonAf 94.48 Random Glucose 85 Calcium 7.9 L Total Bilirubin 0.7 AST 23 ALT 32 Alkaline Phosphatase 74 Total Protein 6.5 Albumin 3.1 L Syphilis Serology Non-reactive COVID-19 (FERNANDEZ) Not detected HIV Ag/Ab Combo Qual 06/21/20 06/21/20 07:20 07:30 WBC 6.3 RBC 4.29 Hgb 13.6 Hct 40.6 MCV 94.7 MCH 31.8 MCHC 33.5 RDW 14.9 D Plt Count 155 D MPV 8.4 Sodium Potassium Chloride Carbon Dioxide Anion Gap BUN Creatinine Est GFR (CKD-EPI)AfAm Est GFR (CKD-EPI)NonAf Random Glucose Calcium Total Bilirubin AST ALT Alkaline Phosphatase Total Protein Albumin Syphilis Serology COVID-19 (FERNANDEZ) HIV Ag/Ab Combo Qual Negative lab noted encourage calcium rich food - Treatment Hospital Course: Detox Protocol Followed, Detoxed Safely, Responded well, Discharged Condition Good, Rehab Referral Accepted Patient has Accepted a Rehab Referral to: [facility] - Medication Discharge Medications: Ambulatory Orders Albuterol Sulfate Inhaler - [Ventolin HFA Inhaler -] 2 inh PO Q4H PRN #1 canister 06/23/20 - Diagnosis (1) Substance induced mood disorder Status: Suspected (2) Alcohol dependence with uncomplicated withdrawal Status: Acute (3) Nicotine dependence Status: Acute Qualifiers: Nicotine product type: cigarettes Substance use status: in withdrawal Qualified Code(s): F17.213 - Nicotine dependence, cigarettes, with withdrawal (4) Xanax use disorder, mild Status: Acute (5) Asthma Status: Chronic Qualifiers: Asthma severity: mild Asthma persistence: unspecified Asthma complication type: uncomplicated Qualified Code(s): J45.909 - Unspecified asthma, uncomplicated - AMA Did Patient Leave Against Medical Advice: No CIWA Score - CIWA Score Nausea/Vomitin-No Nausea/No Vomiting Muscle Tremors: 3 Anxiety: 2 Agitation: 1-Slight > Activity Paroxysmal Sweats: 1-Minimal Palms Moist Orientation: 0-Oriented Tacttile Disturbances: 0-None Auditory Disturbances: 0-None Visual Disturbances: 0-None Headache: 0-None Present CIWA-Ar Total Score: 7
[2020-06-24] MEDS ORDERED: chlordiazePOXIDE HCL 10 MG CAPSULE PO ONE (05:00)
== END 2020-06-23 10:43 | disposition home or self-care (01) | DRG 775 ==
LOC: YASAS 11:57 → Y3N 14:58
PROVIDERS: ADMIT Allergy & Immunology; ATTEND Allergy & Immunology
PROC: HZ2ZZZZ Detoxification Services for Substance Abuse Treatment (ICD-10-PCS; principal; 2020-06-20)
DX: F10.230 Alcohol dependence with withdrawal, uncomplicated (principal); F13.230 Sedative, hypnotic or anxiolytic dependence with withdrawal, uncomplicated; F17.210 Nicotine dependence, cigarettes, uncomplicated; F19.24 Other psychoactive substance dependence with psychoactive substance-induced mood disorder; I10 Essential (primary) hypertension; J45.909 Unspecified asthma, uncomplicated; Z87.81 Personal history of (healed) traumatic fracture; Z88.0 Allergy status to penicillin; Z91.013 Allergy to seafood; Z91.011 Allergy to milk products
CPT/HCPCS: 36415; 80053; 85027; 86780; 87389; J0735; U0003

== ENCOUNTER 2024-06-28 09:40 | Inpatient (IN) | payer OTHER ==
[2024-06-28 10:12] VITALS: BMI 35.8
[2024-06-28] MEDS ORDERED: chlordiazePOXIDE HCL 25 MG CAPSULE PO PRN (10:18)
[2024-06-28] MEDS ORDERED: ONDANSETRON *ODT* 4 MG TABLET SL PRN (10:22)
[2024-06-28] MEDS ORDERED: MAG HYDROX/AL HYDROX/SIMETH 30 ML UNIT-DOSE CUP PO PRN (10:22)
[2024-06-28] MEDS ORDERED: ACETAMINOPHEN 325 MG TABLET (FP) PO PRN (10:22)
[2024-06-28] MEDS ORDERED: LOPERAMIDE HCL 2 MG CAPSULE PO PRN (10:22)
[2024-06-28] MEDS ORDERED: DICYCLOMINE HCL 10 MG CAPSULE PO PRN (10:22)
[2024-06-28] MEDS ORDERED: BISMUTH SUBSALICYLATE 524 MG/30 ML PO PRN (10:22)
[2024-06-28] MEDS ORDERED: P-EPHED 60MG/TRIPROLIDI 2.5MG TABLET PO PRN (10:22)
[2024-06-28] MEDS ORDERED: NICOTINE POLACRILEX 2 MG LOZENGE BC PRN (10:22)
[2024-06-28] MEDS ORDERED: IBUPROFEN 400 MG TABLET (FP) PO PRN (10:22)
[2024-06-28] MEDS ORDERED: POLYETHYLENE GLYCOL (HEALTHYLAX) 3350 17 GM PACKET PO PRN (10:22)
[2024-06-28] MEDS ORDERED: BENZOCAINE/MENTHOL (CHLORASEPTIC ) LOZENGE MM PRN (10:22)
[2024-06-28] MEDS ORDERED: BENZONATATE 200 MG CAPSULE PO PRN (10:22)
[2024-06-28] MEDS ORDERED: guaiFENesin 600 MG TABLET.ER (FP) PO PRN (10:22)
[2024-06-28] MEDS ORDERED: MAGNESIUM HYDROX 2400MG/30ML ORAL SUSPENSION 30 ML CUP PO PRN (10:22)
[2024-06-28] MEDS ORDERED: NICOTINE POLACRILEX 2 MG GUM BUC PRN (10:22)
[2024-06-28] MEDS ORDERED: IBUPROFEN 600 MG TABLET (FP) PO PRN (10:22)
[2024-06-28] MEDS ORDERED: chlordiazePOXIDE HCL 25 MG CAPSULE ONE (11:11)
[2024-06-28] MEDS: chlordiazePOXIDE HCL 25 MG CAPSULE PO SCH (11:14)
[2024-06-28] MEDS ORDERED: ALBUTEROL SO4 HFA INHALER IH PRN (11:55)
[2024-06-28] MEDS: amLODIPine BESYLATE 10 MG TABLET (FP) PO SCH (12:25)
[2024-06-28] MEDS: NICOTINE POLACRILEX 4 MG GUM BUC PRN (12:26)
[2024-06-28] MEDS: cloNIDine HCL 0.1 MG TABLET PO PRN (17:21)
[2024-06-28] MEDS: THIAMINE 100 MG TABLET PO SCH (22:24)
[2024-06-28] MEDS: MELATONIN 5 MG TABLETS PO SCH (22:25)
[2024-06-29] MEDS: PRENATAL VITAMINS W/ FOLIC ACID TABLET (FP) PO SCH (10:14)
[2024-06-29 11:27] LABS: HEMATOCRIT 44.9 % (35.4-49); HEMOGLOBIN 15.5 GM/dL (11.7-16.9); MCH 33.1 pg (25.7-33.7); MCHC 34.5 g/dl (32.0-35.9); MEAN CELL VOLUME 95.9 fl (80-96); MEAN PLT VOLUME 8.7 fl (7.5-11.1); PLATELET COUNT 185 10^3/uL (134-434); RBC 4.68 M/mm3 (4.00-5.60); RDW 15.2 % (11.9-15.9); WHITE BLOOD COUNT 7.4 K/mm3 (4.0-10.0)
[2024-06-29 11:43] LABS: CHLORIDE 106 mmol/L (98-107); POTASSIUM 3.8 mmol/L (3.5-5.1); SODIUM 138 mmol/L (136-145)
[2024-06-29 11:53] LABS: CALCIUM 8.8 mg/dL (8.5-10.1)
[2024-06-29 11:54] LABS: ALBUMIN 3.2 g/dl (3.4-5.0); ANION GAP 11 mmol/L (4-13); BLOOD UREA NITROGEN 17.9 mg/dL (7-18); CO2 21 mmol/L (21-32); GLUCOSE,RANDOM 100 mg/dL (74-106)
[2024-06-29 11:57] LABS: CREATININE 0.9 mg/dL (0.55-1.3); SGOT/AST 27 U/L (15-37); SGPT/ALT 28 U/L (13-61)
[2024-06-29 11:58] LABS: BILIRUBIN,TOTAL 0.6 mg/dL (0.2-1); TOT PROT 6.6 g/dl (6.4-8.2)
[2024-06-29 11:59] LABS: ALK PHOS 91 U/L (45-117)
[2024-06-30] MEDS: chlordiazePOXIDE HCL 10 MG CAPSULE PO SCH (05:58)
[2024-06-30] MEDS: chlordiazePOXIDE HCL 25 MG CAPSULE PO SCH (06:01)
[2024-06-30] MEDS: hydrOXYzine PAMOATE 25 MG CAPSULE (FP) PO PRN (17:02)
[2024-06-30] MEDS: METHOCARBAMOL 500 MG TABLET PO PRN (22:17)
[2024-07-01] MEDS ORDERED: chlordiazePOXIDE HCL 10 MG CAPSULE PO PRN
[2024-07-01] MEDS: chlordiazePOXIDE HCL 10 MG CAPSULE PO SCH (05:32)
[2024-07-02] MEDS: chlordiazePOXIDE HCL 10 MG CAPSULE PO ONE (05:51)
[2024-07-02 09:58] VITALS: BP 147/92; PULSE 97; RESP 16; TEMP 97.8
== END 2024-07-02 09:10 | disposition home or self-care (01) | DRG 775 ==
LOC: YASAS 09:40 → Y3N 10:49
PROVIDERS: ADMIT Allergy & Immunology; ATTEND Surgery
PROC: HZ2ZZZZ Detoxification Services for Substance Abuse Treatment (ICD-10-PCS; principal; 2024-06-28)
DX: F10.230 Alcohol dependence with withdrawal, uncomplicated (principal); F12.20 Cannabis dependence, uncomplicated; F17.210 Nicotine dependence, cigarettes, uncomplicated; I10 Essential (primary) hypertension; J45.909 Unspecified asthma, uncomplicated
CPT/HCPCS: 36415; 80053; 80305; 80307; 85027; 86780

== ENCOUNTER 2024-08-09 09:39 | Inpatient (IN) | payer OTHER ==
[2024-08-09 10:10] VITALS: BMI 34.4
[2024-08-09] MEDS ORDERED: MAG HYDROX/AL HYDROX/SIMETH 30 ML UNIT-DOSE CUP PO PRN (10:22)
[2024-08-09] MEDS ORDERED: MAGNESIUM HYDROX 2400MG/30ML ORAL SUSPENSION 30 ML CUP PO PRN (10:22)
[2024-08-09] MEDS ORDERED: BISMUTH SUBSALICYLATE 524 MG/30 ML PO PRN (10:22)
[2024-08-09] MEDS ORDERED: IBUPROFEN 400 MG TABLET (FP) PO PRN (10:22)
[2024-08-09] MEDS ORDERED: NALOXONE (NARCAN) HCL 4 MG/0.1 ML SPRAY NS PRN (10:22)
[2024-08-09] MEDS ORDERED: DICYCLOMINE HCL 10 MG CAPSULE PO PRN (10:22)
[2024-08-09] MEDS ORDERED: chlordiazePOXIDE HCL 25 MG CAPSULE PO PRN (10:22)
[2024-08-09] MEDS ORDERED: IBUPROFEN 600 MG TABLET (FP) PO PRN (10:22)
[2024-08-09] MEDS ORDERED: ONDANSETRON *ODT* 4 MG TABLET SL PRN (10:22)
[2024-08-09] MEDS ORDERED: BENZOCAINE/MENTHOL (CHLORASEPTIC ) LOZENGE MM PRN (10:22)
[2024-08-09] MEDS ORDERED: BENZONATATE 200 MG CAPSULE PO PRN (10:22)
[2024-08-09] MEDS ORDERED: LOPERAMIDE HCL 2 MG CAPSULE PO PRN (10:22)
[2024-08-09] MEDS ORDERED: POLYETHYLENE GLYCOL (HEALTHYLAX) 3350 17 GM PACKET PO PRN (10:22)
[2024-08-09] MEDS ORDERED: NALOXONE (NYS OPIOID OVERDOSE PROGRAM) 4 MG/0.1 ML SPRAY NS PRN (10:22)
[2024-08-09] MEDS ORDERED: METHOCARBAMOL 500 MG TABLET PO PRN (10:22)
[2024-08-09] MEDS ORDERED: ACETAMINOPHEN 325 MG TABLET (FP) PO PRN (10:22)
[2024-08-09] MEDS ORDERED: hydrOXYzine PAMOATE 25 MG CAPSULE (FP) PO PRN (10:22)
[2024-08-09] MEDS ORDERED: guaiFENesin 600 MG TABLET.ER (FP) PO PRN (10:22)
[2024-08-09] MEDS ORDERED: ALBUTEROL SO4 HFA INHALER IH PRN (10:23)
[2024-08-09] MEDS ORDERED: chlordiazePOXIDE HCL 25 MG CAPSULE ONE (10:42)
[2024-08-09] MEDS ORDERED: PRENATAL VITAMINS W/ FOLIC ACID TABLET (FP) PO ONE (10:43)
[2024-08-09] MEDS: chlordiazePOXIDE HCL 25 MG CAPSULE PO SCH (10:46)
[2024-08-09] MEDS: PRENATAL VITAMINS W/ FOLIC ACID TABLET (FP) PO SCH (10:46)
[2024-08-09] MEDS: NICOTINE POLACRILEX 4 MG GUM BUC PRN (11:29)
[2024-08-09] MEDS: THIAMINE 100 MG TABLET PO SCH (22:20)
[2024-08-09] MEDS: MELATONIN 5 MG TABLETS PO SCH (22:20)
[2024-08-10 06:27] VITALS: TEMP 97.8
[2024-08-10 09:25] VITALS: BP 116/61; PULSE 100; RESP 17
[2024-08-10 09:25] LABS: POTASSIUM 3.8 mmol/L (3.5-5.1)
[2024-08-10 09:35] LABS: CALCIUM 8.5 mg/dL (8.5-10.1)
[2024-08-10 09:36] LABS: ALBUMIN 3.3 g/dl (3.4-5.0); BLOOD UREA NITROGEN 16.2 mg/dL (7-18)
[2024-08-10 09:39] LABS: HEMATOCRIT 45.1 % (35.4-49); HEMOGLOBIN 15.4 GM/dL (11.7-16.9); MCH 33.4 pg (25.7-33.7); MCHC 34.2 g/dl (32.0-35.9); MEAN CELL VOLUME 97.6 fl (80-96); MEAN PLT VOLUME 8.5 fl (7.5-11.1); PLATELET COUNT 225 10^3/uL (134-434); RBC 4.62 M/mm3 (4.00-5.60); RDW 14.8 % (11.9-15.9); WHITE BLOOD COUNT 7.6 K/mm3 (4.0-10.0)
[2024-08-10 09:40] LABS: BILIRUBIN,TOTAL 0.4 mg/dL (0.2-1); TOT PROT 6.6 g/dl (6.4-8.2)
[2024-08-10] MEDS: amLODIPine BESYLATE 10 MG TABLET (FP) PO SCH (10:29)
[2024-08-11] MEDS ORDERED: chlordiazePOXIDE HCL 25 MG CAPSULE PO SCH (05:00)
[2024-08-12] MEDS ORDERED: chlordiazePOXIDE HCL 10 MG CAPSULE PO PRN
[2024-08-12] MEDS ORDERED: chlordiazePOXIDE HCL 10 MG CAPSULE PO SCH (05:00)
[2024-08-13] MEDS ORDERED: chlordiazePOXIDE HCL 10 MG CAPSULE PO SCH (05:00)
[2024-08-14] MEDS ORDERED: chlordiazePOXIDE HCL 10 MG CAPSULE PO ONE (05:00)
== END 2024-08-10 10:33 | disposition left against medical advice (07) | DRG 770 ==
LOC: YASAS 09:39 → Y3N 10:29
PROVIDERS: ADMIT Allergy & Immunology; ATTEND Surgery
PROC: HZ2ZZZZ Detoxification Services for Substance Abuse Treatment (ICD-10-PCS; principal; 2024-08-09)
DX: F10.230 Alcohol dependence with withdrawal, uncomplicated (principal); F13.10 Sedative, hypnotic or anxiolytic abuse, uncomplicated; F12.10 Cannabis abuse, uncomplicated; F17.210 Nicotine dependence, cigarettes, uncomplicated; F10.282 Alcohol dependence with alcohol-induced sleep disorder; F43.10 Post-traumatic stress disorder, unspecified; F32.9 Major depressive disorder, single episode, unspecified; J45.909 Unspecified asthma, uncomplicated; K21.9 Gastro-esophageal reflux disease without esophagitis
CPT/HCPCS: 36415; 80053; 80305; 80307; 85027; 86780

== ENCOUNTER 2024-10-17 10:20 | Inpatient (IN) | payer OTHER ==
[2024-10-17 10:42] VITALS: BMI 33.5
[2024-10-17] MEDS ORDERED: IBUPROFEN 400 MG TABLET (FP) PO PRN (11:04)
[2024-10-17] MEDS ORDERED: BENZOCAINE/MENTHOL (CHLORASEPTIC ) LOZENGE MM PRN (11:04)
[2024-10-17] MEDS ORDERED: POLYETHYLENE GLYCOL (HEALTHYLAX) 3350 17 GM PACKET PO PRN (11:04)
[2024-10-17] MEDS ORDERED: DICYCLOMINE HCL 10 MG CAPSULE PO PRN (11:04)
[2024-10-17] MEDS ORDERED: guaiFENesin 600 MG TABLET.ER (FP) PO PRN (11:04)
[2024-10-17] MEDS ORDERED: BENZONATATE 200 MG CAPSULE PO PRN (11:04)
[2024-10-17] MEDS ORDERED: NALOXONE (NARCAN) HCL 4 MG/0.1 ML SPRAY NS PRN (11:04)
[2024-10-17] MEDS ORDERED: MAGNESIUM HYDROX 2400MG/30ML ORAL SUSPENSION 30 ML CUP PO PRN (11:04)
[2024-10-17] MEDS ORDERED: ACETAMINOPHEN 325 MG TABLET (FP) PO PRN (11:04)
[2024-10-17] MEDS ORDERED: hydrOXYzine PAMOATE 25 MG CAPSULE (FP) PO PRN (11:04)
[2024-10-17] MEDS ORDERED: LOPERAMIDE HCL 2 MG CAPSULE PO PRN (11:04)
[2024-10-17] MEDS ORDERED: MAG HYDROX/AL HYDROX/SIMETH 30 ML UNIT-DOSE CUP PO PRN (11:04)
[2024-10-17] MEDS ORDERED: ONDANSETRON *ODT* 4 MG TABLET SL PRN (11:04)
[2024-10-17] MEDS ORDERED: chlordiazePOXIDE HCL 25 MG CAPSULE ONE (11:27)
[2024-10-17] MEDS ORDERED: PRENATAL VITAMINS W/ FOLIC ACID TABLET (FP) PO ONE (11:27)
[2024-10-17] MEDS: PRENATAL VITAMINS W/ FOLIC ACID TABLET (FP) PO SCH (11:29)
[2024-10-17] MEDS: chlordiazePOXIDE HCL 25 MG CAPSULE PO SCH (11:30)
[2024-10-17] MEDS: NICOTINE POLACRILEX 2 MG GUM BUC PRN (12:00)
[2024-10-17] MEDS: ACAMPROSATE CALCIUM 333 MG TABLET.DR PO SCH (13:20)
[2024-10-17] MEDS ORDERED: ALBUTEROL SO4 HFA INHALER IH PRN (13:30)
[2024-10-17] MEDS: amLODIPine BESYLATE 10 MG TABLET (FP) PO SCH (14:04)
[2024-10-17] MEDS: NICOTINE POLACRILEX 4 MG GUM BUC PRN (14:05)
[2024-10-17] MEDS: MELATONIN 5 MG TABLETS PO SCH (22:36)
[2024-10-17] MEDS: THIAMINE 100 MG TABLET PO SCH (22:36)
[2024-10-18 11:25] LABS: HEMOGLOBIN 16.2 GM/dL (11.7-16.9); MCH 33.1 pg (25.7-33.7); MCHC 33.1 g/dl (32.0-35.9); MEAN CELL VOLUME 99.9 fl (80-96); MEAN PLT VOLUME 8.7 fl (7.5-11.1); PLATELET COUNT 313 10^3/uL (134-434); RBC 4.91 M/mm3 (4.00-5.60); RDW 13.4 % (11.9-15.9); WHITE BLOOD COUNT 9.7 K/mm3 (4.0-10.0)
[2024-10-18] MEDS: chlordiazePOXIDE HCL 25 MG CAPSULE PO PRN (14:04)
[2024-10-18 14:13] LABS: POTASSIUM 3.9 mmol/L (3.5-5.1)
[2024-10-18 14:16] LABS: CALCIUM 9.1 mg/dL (8.5-10.1)
[2024-10-18 14:17] LABS: ALBUMIN 3.6 g/dl (3.4-5.0); BLOOD UREA NITROGEN 10.4 mg/dL (7-18)
[2024-10-18 14:22] LABS: BILIRUBIN,TOTAL 0.4 mg/dL (0.2-1)
[2024-10-18 14:26] LABS: TOT PROT 7.4 g/dl (6.4-8.2)
[2024-10-18] MEDS: METHOCARBAMOL 500 MG TABLET PO PRN (17:31)
[2024-10-18] MEDS: IBUPROFEN 600 MG TABLET (FP) PO PRN (17:31)
[2024-10-18] MEDS: BISMUTH SUBSALICYLATE 262 MG/15 ML BTL PO PRN (17:34)
[2024-10-19] MEDS: chlordiazePOXIDE HCL 25 MG CAPSULE PO SCH (06:00)
[2024-10-19 07:09] VITALS: BP 122/78; PULSE 68; RESP 18; TEMP 97.8
[2024-10-20] MEDS ORDERED: chlordiazePOXIDE HCL 10 MG CAPSULE PO PRN
[2024-10-20] MEDS ORDERED: chlordiazePOXIDE HCL 10 MG CAPSULE PO SCH (05:00)
[2024-10-21] MEDS ORDERED: chlordiazePOXIDE HCL 10 MG CAPSULE PO SCH (05:00)
[2024-10-22] MEDS ORDERED: chlordiazePOXIDE HCL 10 MG CAPSULE PO ONE (05:00)
== END 2024-10-19 09:26 | disposition left against medical advice (07) | DRG 770 ==
LOC: YASAS 10:20 → Y6N 11:19
PROVIDERS: ADMIT Allergy & Immunology; ATTEND Surgery
PROC: HZ2ZZZZ Detoxification Services for Substance Abuse Treatment (ICD-10-PCS; principal; 2024-10-17)
DX: F10.230 Alcohol dependence with withdrawal, uncomplicated (principal); F12.20 Cannabis dependence, uncomplicated; F17.210 Nicotine dependence, cigarettes, uncomplicated; F41.9 Anxiety disorder, unspecified; G47.00 Insomnia, unspecified; I10 Essential (primary) hypertension; J45.909 Unspecified asthma, uncomplicated; K21.9 Gastro-esophageal reflux disease without esophagitis
CPT/HCPCS: 36415; 80053; 80305; 80307; 85027; 86780; 93005; 93010

== ENCOUNTER 2024-11-26 11:44 | Inpatient (IN) | payer OTHER ==
[2024-11-26 12:20] VITALS: BMI 33.6
[2024-11-26] MEDS ORDERED: LOPERAMIDE HCL 2 MG CAPSULE PO PRN (13:05)
[2024-11-26] MEDS ORDERED: BISMUTH SUBSALICYLATE 262 MG/15 ML BTL PO PRN (13:05)
[2024-11-26] MEDS ORDERED: BENZOCAINE/MENTHOL (CHLORASEPTIC ) LOZENGE MM PRN (13:05)
[2024-11-26] MEDS ORDERED: ONDANSETRON *ODT* 4 MG TABLET SL PRN (13:05)
[2024-11-26] MEDS ORDERED: guaiFENesin 600 MG TABLET.ER (FP) PO PRN (13:05)
[2024-11-26] MEDS ORDERED: IBUPROFEN 400 MG TABLET (FP) PO PRN (13:05)
[2024-11-26] MEDS ORDERED: POLYETHYLENE GLYCOL (HEALTHYLAX) 3350 17 GM PACKET PO PRN (13:05)
[2024-11-26] MEDS ORDERED: NALOXONE (NARCAN) HCL 4 MG/0.1 ML SPRAY NS PRN (13:05)
[2024-11-26] MEDS ORDERED: DICYCLOMINE HCL 10 MG CAPSULE PO PRN (13:05)
[2024-11-26] MEDS ORDERED: MAGNESIUM HYDROX 2400MG/30ML ORAL SUSPENSION 30 ML CUP PO PRN (13:05)
[2024-11-26] MEDS ORDERED: MAG HYDROX/AL HYDROX/SIMETH 30 ML UNIT-DOSE CUP PO PRN (13:05)
[2024-11-26] MEDS ORDERED: BENZONATATE 200 MG CAPSULE PO PRN (13:05)
[2024-11-26] MEDS ORDERED: chlordiazePOXIDE HCL 25 MG CAPSULE PO PRN (13:05)
[2024-11-26] MEDS ORDERED: ALBUTEROL SO4 HFA INHALER IH PRN (13:09)
[2024-11-26] MEDS ORDERED: PRENATAL VITAMINS W/ FOLIC ACID TABLET (FP) PO ONE (13:18)
[2024-11-26] MEDS ORDERED: chlordiazePOXIDE HCL 25 MG CAPSULE ONE (13:18)
[2024-11-26] MEDS: PRENATAL VITAMINS W/ FOLIC ACID TABLET (FP) PO SCH (13:22)
[2024-11-26] MEDS: chlordiazePOXIDE HCL 25 MG CAPSULE PO ONE (13:22)
[2024-11-26] MEDS: NICOTINE POLACRILEX 4 MG GUM BUC PRN (15:21)
[2024-11-26] MEDS: chlordiazePOXIDE HCL 25 MG CAPSULE PO SCH (17:43)
[2024-11-26] MEDS: MELATONIN 5 MG TABLETS PO SCH (22:31)
[2024-11-26] MEDS: METHOCARBAMOL 500 MG TABLET PO PRN (22:31)
[2024-11-26] MEDS: THIAMINE 100 MG TABLET PO SCH (22:31)
[2024-11-27] MEDS: NALTREXONE HCL 50 MG TABLET PO SCH (10:13)
[2024-11-27] MEDS: cloNIDine HCL 0.1 MG TABLET PO ONE (10:13)
[2024-11-27] MEDS: amLODIPine BESYLATE 10 MG TABLET (FP) PO SCH (10:13)
[2024-11-27] MEDS: IBUPROFEN 600 MG TABLET (FP) PO PRN (10:17)
[2024-11-27 11:09] LABS: POTASSIUM 3.5 mmol/L (3.5-5.1)
[2024-11-27 11:12] LABS: ALBUMIN 3.6 g/dl (3.4-5.0); BLOOD UREA NITROGEN 10.8 mg/dL (7-18)
[2024-11-27 11:15] LABS: CREATININE 1.1 mg/dL (0.55-1.3); HEMATOCRIT 45.2 % (35.4-49); HEMOGLOBIN 15.8 GM/dL (11.7-16.9); MCH 34.3 pg (25.7-33.7); MEAN CELL VOLUME 98.1 fl (80-96); MEAN PLT VOLUME 8.8 fl (7.5-11.1); PLATELET COUNT 267 10^3/uL (134-434); RBC 4.61 M/mm3 (4.00-5.60); RDW 13.7 % (11.9-15.9); WHITE BLOOD COUNT 8.7 K/mm3 (4.0-10.0)
[2024-11-27 11:17] LABS: BILIRUBIN,TOTAL 0.9 mg/dL (0.2-1); TOT PROT 7.5 g/dl (6.4-8.2)
[2024-11-27] MEDS: METHYL SALICYLATE/MENTHOL 30 GM TUBE TP PRN (20:08)
[2024-11-28] MEDS: chlordiazePOXIDE HCL 25 MG CAPSULE PO SCH (05:44)
[2024-11-28] MEDS: ACETAMINOPHEN 325 MG TABLET (FP) PO PRN (16:58)
[2024-11-29] MEDS ORDERED: chlordiazePOXIDE HCL 10 MG CAPSULE PO PRN
[2024-11-29] MEDS: chlordiazePOXIDE HCL 10 MG CAPSULE PO SCH (05:53)
[2024-11-29] MEDS: hydrOXYzine PAMOATE 25 MG CAPSULE (FP) PO PRN (19:00)
[2024-11-30] MEDS: chlordiazePOXIDE HCL 10 MG CAPSULE PO SCH (05:31)
[2024-11-30 12:55] VITALS: BP 130/86; PULSE 81; RESP 17; TEMP 97.9
[2024-12-01] MEDS ORDERED: chlordiazePOXIDE HCL 10 MG CAPSULE PO ONE (05:00)
== END 2024-11-30 14:51 | disposition home or self-care (01) | DRG 775 ==
LOC: YASAS 11:44 → Y3N 14:05
PROVIDERS: ADMIT Allergy & Immunology; ATTEND Allergy & Immunology
PROC: HZ2ZZZZ Detoxification Services for Substance Abuse Treatment (ICD-10-PCS; principal; 2024-11-26)
DX: F10.230 Alcohol dependence with withdrawal, uncomplicated (principal); F12.10 Cannabis abuse, uncomplicated; F17.210 Nicotine dependence, cigarettes, uncomplicated; F10.282 Alcohol dependence with alcohol-induced sleep disorder; F43.10 Post-traumatic stress disorder, unspecified; F41.9 Anxiety disorder, unspecified; I10 Essential (primary) hypertension; J45.20 Mild intermittent asthma, uncomplicated; K21.9 Gastro-esophageal reflux disease without esophagitis; Z88.0 Allergy status to penicillin
CPT/HCPCS: 36415; 80053; 80305; 80307; 82962; 83036; 85027; 86780; 93005; 93010

== ENCOUNTER 2024-12-31 10:31 | Inpatient (IN) | payer OTHER ==
[2024-12-31 10:51] VITALS: BMI 31.9
[2024-12-31] MEDS ORDERED: ALBUTEROL SO4 HFA INHALER IH PRN (11:07)
[2024-12-31] MEDS ORDERED: chlordiazePOXIDE HCL 25 MG CAPSULE PO PRN (11:08)
[2024-12-31] MEDS ORDERED: IBUPROFEN 400 MG TABLET (FP) PO PRN (11:11)
[2024-12-31] MEDS ORDERED: LOPERAMIDE HCL 2 MG CAPSULE PO PRN (11:11)
[2024-12-31] MEDS ORDERED: P-EPHED 60MG/TRIPROLIDI 2.5MG TABLET PO PRN (11:11)
[2024-12-31] MEDS ORDERED: BENZONATATE 200 MG CAPSULE PO PRN (11:11)
[2024-12-31] MEDS ORDERED: MAGNESIUM HYDROX 2400MG/30ML ORAL SUSPENSION 30 ML CUP PO PRN (11:11)
[2024-12-31] MEDS ORDERED: BENZOCAINE/MENTHOL (CHLORASEPTIC ) LOZENGE MM PRN (11:11)
[2024-12-31] MEDS ORDERED: DICYCLOMINE HCL 10 MG CAPSULE PO PRN (11:11)
[2024-12-31] MEDS ORDERED: POLYETHYLENE GLYCOL (HEALTHYLAX) 3350 17 GM PACKET PO PRN (11:11)
[2024-12-31] MEDS ORDERED: guaiFENesin 600 MG TABLET.ER (FP) PO PRN (11:11)
[2024-12-31] MEDS ORDERED: ONDANSETRON *ODT* 4 MG TABLET SL PRN (11:11)
[2024-12-31] MEDS ORDERED: MAG HYDROX/AL HYDROX/SIMETH 30 ML UNIT-DOSE CUP PO PRN (11:11)
[2024-12-31] MEDS ORDERED: NALOXONE (NARCAN) HCL 4 MG/0.1 ML SPRAY NS PRN (11:11)
[2024-12-31] MEDS ORDERED: BISMUTH SUBSALICYLATE 262 MG/15 ML BTL PO PRN (11:11)
[2024-12-31] MEDS ORDERED: chlordiazePOXIDE HCL 25 MG CAPSULE ONE (11:39)
[2024-12-31] MEDS: chlordiazePOXIDE HCL 25 MG CAPSULE PO SCH (11:41)
[2024-12-31] MEDS: NICOTINE POLACRILEX 4 MG LOZENGE BC PRN (12:24)
[2024-12-31] MEDS: NICOTINE POLACRILEX 4 MG GUM BUC PRN (14:37)
[2024-12-31] MEDS: amLODIPine BESYLATE 10 MG TABLET (FP) PO ONE (20:05)
[2024-12-31] MEDS: THIAMINE 100 MG TABLET PO SCH (22:43)
[2024-12-31] MEDS: MELATONIN 5 MG TABLETS PO SCH (22:43)
[2025-01-01] MEDS: METHOCARBAMOL 500 MG TABLET PO PRN (06:14)
[2025-01-01] MEDS: LIDOCAINE 4% PATCH TP SCH (09:16)
[2025-01-01] MEDS: PRENATAL VITAMINS W/ FOLIC ACID TABLET (FP) PO SCH (10:17)
[2025-01-01] MEDS: hydrOXYzine PAMOATE 25 MG CAPSULE (FP) PO PRN (10:17)
[2025-01-01] MEDS: amLODIPine BESYLATE 10 MG TABLET (FP) PO SCH (10:17)
[2025-01-01 11:03] LABS: POTASSIUM 3.8 mmol/L (3.5-5.1)
[2025-01-01 11:10] LABS: CALCIUM 9.2 mg/dL (8.5-10.1)
[2025-01-01 11:11] LABS: ALBUMIN 3.9 g/dl (3.4-5.0); BLOOD UREA NITROGEN 10.2 mg/dL (7-18)
[2025-01-01 11:12] LABS: TOT PROT 7.8 g/dl (6.4-8.2)
[2025-01-01 11:43] LABS: HEMATOCRIT 46.4 % (40.1-51.0); MCHC 34.5 g/dl (32.3-36.5); MEAN CELL VOLUME 96.9 fl (79.0-92.2); MEAN PLT VOLUME 10.4 fl (9.4-12.4); PLATELET COUNT # 310 x10^3/uL (163-337)
[2025-01-01] MEDS: LIDOCAINE PATCH REMOVAL MC SCH (22:23)
[2025-01-02] MEDS: chlordiazePOXIDE HCL 25 MG CAPSULE PO SCH (06:00)
[2025-01-02] MEDS ORDERED: NALTREXONE HCL 50 MG TABLET PO ONE (15:58)
[2025-01-02] MEDS: NALTREXONE HCL 50 MG TABLET PO ONE (18:40)
[2025-01-03] MEDS ORDERED: chlordiazePOXIDE HCL 10 MG CAPSULE PO PRN
[2025-01-03] MEDS: chlordiazePOXIDE HCL 10 MG CAPSULE PO SCH (05:51)
[2025-01-03] MEDS ORDERED: NALTREXONE HCL 50 MG TABLET PO SCH (10:00)
[2025-01-03] MEDS: NALTREXONE HCL 50 MG TABLET PO SCH (10:51)
[2025-01-04] MEDS: chlordiazePOXIDE HCL 10 MG CAPSULE PO SCH (05:59)
[2025-01-04] MEDS: IBUPROFEN 600 MG TABLET (FP) PO PRN (09:30)
[2025-01-04] MEDS: ACETAMINOPHEN 325 MG TABLET (FP) PO PRN (12:14)
[2025-01-05] MEDS: chlordiazePOXIDE HCL 10 MG CAPSULE PO ONE (06:09)
[2025-01-05 07:37] VITALS: RESP 17; TEMP 97.6
[2025-01-05 07:40] VITALS: BP 122/82; PULSE 94
== END 2025-01-05 09:21 | disposition home or self-care (01) | DRG 775 ==
LOC: YASAS 10:31 → Y6N 11:46
PROVIDERS: ADMIT Allergy & Immunology; ATTEND Allergy & Immunology
PROC: HZ2ZZZZ Detoxification Services for Substance Abuse Treatment (ICD-10-PCS; principal; 2024-12-31)
DX: F10.230 Alcohol dependence with withdrawal, uncomplicated (principal); F12.10 Cannabis abuse, uncomplicated; F17.210 Nicotine dependence, cigarettes, uncomplicated; E87.1 Hypo-osmolality and hyponatremia; I10 Essential (primary) hypertension; J45.20 Mild intermittent asthma, uncomplicated; K21.9 Gastro-esophageal reflux disease without esophagitis; R73.9 Hyperglycemia, unspecified; R94.5 Abnormal results of liver function studies
CPT/HCPCS: 36415; 71046-TC-FY; 71101-TC-RT-FY; 80053; 80305; 80307; 85027; 86780

== ENCOUNTER 2025-06-29 10:32 | Inpatient (IN) | payer OTHER ==
[2025-06-29 10:58] VITALS: BMI 35.0
[2025-06-29] MEDS ORDERED: guaiFENesin 600 MG TABLET.ER (FP) PO PRN (11:21)
[2025-06-29] MEDS ORDERED: NALOXONE (NARCAN) HCL 4 MG/0.1 ML SPRAY NS PRN (11:21)
[2025-06-29] MEDS ORDERED: BISMUTH SUBSALICYLATE 524 MG/30 ML PO PRN (11:21)
[2025-06-29] MEDS ORDERED: DICYCLOMINE HCL 10 MG CAPSULE PO PRN (11:21)
[2025-06-29] MEDS ORDERED: ONDANSETRON *ODT* 4 MG TABLET SL PRN (11:21)
[2025-06-29] MEDS ORDERED: MAGNESIUM HYDROX 2400MG/30ML ORAL SUSPENSION 30 ML CUP PO PRN (11:21)
[2025-06-29] MEDS ORDERED: MAG HYDROX/AL HYDROX/SIMETH 30 ML UNIT-DOSE CUP PO PRN (11:21)
[2025-06-29] MEDS ORDERED: POLYETHYLENE GLYCOL (HEALTHYLAX) 3350 17 GM PACKET PO PRN (11:21)
[2025-06-29] MEDS ORDERED: LOPERAMIDE HCL 2 MG CAPSULE PO PRN (11:21)
[2025-06-29] MEDS ORDERED: ACETAMINOPHEN 325 MG TABLET (FP) PO PRN (11:21)
[2025-06-29] MEDS ORDERED: BENZOCAINE/MENTHOL (CHLORASEPTIC ) LOZENGE MM PRN (11:21)
[2025-06-29] MEDS ORDERED: NICOTINE POLACRILEX 2 MG LOZENGE BC PRN (11:21)
[2025-06-29] MEDS ORDERED: IBUPROFEN 400 MG TABLET (FP) PO PRN (11:21)
[2025-06-29] MEDS ORDERED: BENZONATATE 200 MG CAPSULE PO PRN (11:21)
[2025-06-29] MEDS: NICOTINE POLACRILEX 2 MG GUM BUC PRN (12:32)
[2025-06-29] MEDS: METOPROLOL TARTRATE 50 MG TABLET (FP) PO ONE (12:34)
[2025-06-29] MEDS ORDERED: ALBUTEROL SO4 HFA INHALER IH PRN (13:16)
[2025-06-29] MEDS: MELATONIN 5 MG TABLETS PO SCH (22:33)
[2025-06-29] MEDS: THIAMINE 100 MG TABLET PO SCH (22:33)
[2025-06-30] MEDS: METHOCARBAMOL 500 MG TABLET PO PRN (05:58)
[2025-06-30] MEDS: PRENATAL VITAMINS W/ FOLIC ACID TABLET (FP) PO SCH (10:05)
[2025-06-30] MEDS: NICOTINE POLACRILEX 2 MG GUM BUC PRN (10:07)
[2025-06-30 11:34] LABS: MCHC 33.3 g/dl (32.3-36.5); MEAN CELL VOLUME 97.6 fl (79.0-92.2); MEAN PLT VOLUME 10.6 fl (9.4-12.4); RDW 13.1 % (12.2-16.4)
[2025-06-30 13:03] LABS: GLUCOSE,RANDOM 101 mg/dL (74-106); TOT PROT 6.4 g/dl (6.4-8.2)
[2025-06-30 13:04] LABS: CO2 23 mmol/L (21-32)
[2025-06-30 13:06] LABS: ALK PHOS 66 U/L (40-150)
[2025-06-30 13:08] LABS: SGPT/ALT 21 U/L (0-55)
[2025-06-30 13:09] LABS: CREATININE 0.90 mg/dL (0.55-1.3); SGOT/AST 24 U/L (5-34)
[2025-06-30] MEDS: METOPROLOL TARTRATE 25 MG TABLET (FP) PO ONE (13:43)
[2025-06-30] MEDS: hydrOXYzine PAMOATE 25 MG CAPSULE (FP) PO PRN (13:46)
[2025-06-30] MEDS: IBUPROFEN 600 MG TABLET (FP) PO PRN (17:19)
[2025-07-01] MEDS: NALTREXONE HCL 50 MG TABLET PO SCH (14:56)
[2025-07-03 09:01] VITALS: BP 148/88; PULSE 93; RESP 18; TEMP 97.5
== END 2025-07-03 09:40 | disposition home or self-care (01) | DRG 775 ==
LOC: YASAS 10:32 → Y6N 12:11
PROVIDERS: ADMIT Neuromusculoskeletal Medicine & OMM; ATTEND Counselor Addiction (Substance Use Disorder)
PROC: HZ2ZZZZ Detoxification Services for Substance Abuse Treatment (ICD-10-PCS; principal; 2025-06-29)
DX: F10.230 Alcohol dependence with withdrawal, uncomplicated (principal); F12.20 Cannabis dependence, uncomplicated; F17.210 Nicotine dependence, cigarettes, uncomplicated; F10.282 Alcohol dependence with alcohol-induced sleep disorder; F10.280 Alcohol dependence with alcohol-induced anxiety disorder; F10.24 Alcohol dependence with alcohol-induced mood disorder; I10 Essential (primary) hypertension; J45.20 Mild intermittent asthma, uncomplicated; K21.9 Gastro-esophageal reflux disease without esophagitis; R79.89 Other specified abnormal findings of blood chemistry; R29.6 Repeated falls
CPT/HCPCS: 36415; 80053; 80305; 80307; 85027; 86780